=== PATIENT | male | born 1980 | race Caucasian/White ===

== ENCOUNTER 2020-03-22 20:55 | Emergency (ER) | payer BC, SELFPAY ==
[2020-03-22 21:13] VITALS: BP 148/98; PULSE 86; RESP 18; TEMP 36.6; O2SAT 95
[2020-03-22 21:30] VITALS: BP 138/88; PULSE 81
--- NOTE | 2020-03-22 21:44 | ECG_ITS ---
Measurements Intervals [place] Rate: 73 P: 6 MO: 149 QRS: -2 QRSD: 111 T: 15 QT: 378 QTc: 418 Interpretive Statements SINUS RHYTHM BORDERLINE T WAVE ABNORMALITY- ANT/INF LEADS BASELINE WANDER- II, III BORDERLINE ECG Electronically Signed On 03-24-2020 7:12:50 CDT by Jason Barreto D.O.
--- NOTE | 2020-03-22 21:44 | ED.GENADULT ---
HPI - General Adult General Chief complaint: Unspecified Stated complaint: hihg blood pressure Source: patient Mode of arrival: ambulatory Limitations: clinical condition History of Present Illness HPI narrative: C/o pounding in his chest, onset 90 minutes ago while resting comfortably in the supine position. He measured his blood pressure at 145/86. Seen in E.D. with concerns this could be caused by something serious. About 30 minutes prior to being seen, while driving to [place] he noticed a faint pulling discomfort, 2/10, just below the left nipple. It is non-radiating. He denies nausea, vomiting, sweating, shortness of breath. He has had hand tremors since onset. He has no hx of heart disease. It is not changed with arm movement, does get a little worse with deep inspiration. His pounding persists in the E.D. Nothing makes it better or worse. He has a hx of anxiety. Hx of anxiety. Moved from [place] several weeks ago; feels less anxious. 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 Hx of seizure assoc. with hypertension in the past. Earlier today he had an intense frontal headache with associated nausea and photophobia treated with 4 Tylenol. It is markedly better now but not gone. He occasionally gets headaches, not as intense as the one he had today. Related Data Home Medications Medication Instructions Recorded Confirmed atenolol 50 mg PO DAILY 03/22/20 03/22/20 fluoxetine 20 mg PO DAILY 03/22/20 03/22/20 nortriptyline 25 mg PO HS 03/22/20 03/22/20 valsartan 160 mg PO DAILY 03/22/20 03/22/20 Allergies Allergy/AdvReac Type Severity Reaction Status Date / Time Contrast Media Allergy Unknown Itching Uncoded 05/17/19 18:50 Review of Systems Constitutional: Constitutional: Denies chills and Denies fever(s) Eyes: Eyes: Reports no additional eye complaints ENT: Denies nasal congestion and Denies sore throat Cardiovascular: Cardiovascular: Reports no additional cardiovascular complaints Respiratory: Respiratory: Denies cough Gastrointestinal: Gastrointestinal: Reports abdominal pain (chronic abdominal pain, no recent change, attributed to 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. ), Denies nausea and Denies vomiting Genitourinary: Genitourinary: Denies dysuria Musculoskeletal: Comments: chronic low back pain, no change recently. Neurologic: Denies focal weakness Comments: no focal numbness. Psychiatric: Psychiatric: Reports anxiety PMFSH Past Medical History Medical History (Updated 03/22/20 @ 22:33 by Duke Real MD) Diverticulitis GERD (gastroesophageal reflux disease) Hodgkin's lymphoma Hypertension Lumbar back pain Family History Family History (Updated 03/22/20 @ 22:33 by Duke Real MD) Father FH: CABG (coronary artery bypass surgery) Social History Social History (Updated 03/22/20 @ 22:34 by Duke Real MD) Years smoked: 20 Smoking status: Current every day smoker Alcohol intake: former Exam Const: General: no acute distress Orientation/consciousness: patient oriented x3 HENMT: Mouth: Yes moist mucous membranes Throat: posterior oropharynx normal Eyes: Pupils: Equal, round and reactive pupils present EOM: EOMs intact bilaterally Direct Ophthalmoscopy: No photophobia Neck: Neck: no lymphadenopathy Chest: Chest palpation & inspection: normal inspection of the chest and tenderness (3 cm area just below left nipple. ) Resp: Effort & Inspection: normal respiratory effort Auscultation: clear to auscultation bilaterally, no rales and no wheezes Cardio: Rate: regular rate Rhythm: regular rhythm Heart sounds: no murmurs GI: GI Palp: Yes Tenderness to palpation present (GI) (tenderness throughout entire abdomen. ) Back/Spine/Pelvis: Other: tender across lumbar region Neuro: General: patient oriented x3, moves all extremities, no meningeal signs, no focal motor deficits and CN's II-XI intact bilaterally Speech: normal speech Gait exam (Neuro): Normal gait present Other: finger-nose, heel-josef
[2020-03-22 22:17] VITALS: BP 138/96; PULSE 75; RESP 18; O2SAT 96
== END 2020-03-22 22:19 | disposition home or self-care (01) ==
PROVIDERS: Emergency Provider Family Medicine
DX: R07.89 Other chest pain (principal); R00.2 Palpitations; I10 Essential (primary) hypertension; K21.9 Gastro-esophageal reflux disease without esophagitis; F17.200 Nicotine dependence, unspecified, uncomplicated
CPT/HCPCS: 93005; 99283; 99284

== ENCOUNTER 2020-05-29 21:47 | Emergency (ER) | payer BC, SELFPAY ==
[2020-05-29 21:56] VITALS: BP 160/95; PULSE 99; RESP 17; TEMP 37; O2SAT 95
--- NOTE | 2020-05-29 22:11 | ED.EXTPRO ---
HPI - Extremity Problem General Chief complaint: Extremity Problem,Nontraumatic Stated complaint: 39YO male w/ pain in Left calf, tingling in foot for last 3-4 days. 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 Denies Trauma. Pain in calf started today Time Seen by Provider: 05/29/20 21:50 Source: patient, RN notes reviewed and old records reviewed Mode of arrival: ambulatory Limitations: no limitations Related Data Home Medications Medication Instructions Recorded Confirmed atenolol 50 mg PO DAILY 03/22/20 05/29/20 fluoxetine 20 mg PO DAILY 03/22/20 05/29/20 nortriptyline 25 mg PO HS 03/22/20 05/29/20 valsartan 160 mg PO DAILY 03/22/20 05/29/20 albuterol sulfate 1 - 2 puff INHALATION QID 05/29/20 05/29/20 tramadol 50 mg PO TID PRN 05/29/20 05/29/20 Allergies Allergy/AdvReac Type Severity Reaction Status Date / Time iohexol Allergy Itching Verified 05/29/20 22:09 [From contrast - CT, X-RAY] Review of Systems Review of Systems: All systems reviewed & are unremarkable except as noted in HPI and below Constitutional: Constitutional: Reports as per HPI Cardiovascular: Cardiovascular: Reports no additional cardiovascular complaints, Denies chest pain, Denies rapid heart rate, Denies radiating jaw, neck or arm pain and Denies slow heart rate Respiratory: Respiratory: Reports no additional respiratory complaints, Denies chest congestion, Denies cough, Denies dyspnea and Denies wheezing Gastrointestinal: Gastrointestinal: Reports no additional gastrointestinal complaints Musculoskeletal: Musculoskeletal: Reports as per HPI Neurologic: Reports system reviewed and no additional complaints, except as documented, Reports as per HPI and Reports tingling PMFSH Past Medical History Medical History Diverticulitis GERD (gastroesophageal reflux disease) Hodgkin's lymphoma Hypertension Lumbar back pain Family History Family History Father FH: CABG (coronary artery bypass surgery) Social History Social History Years smoked: 20 Smoking status: Current every day smoker Alcohol intake: former Exam Const: General: healthy appearing, no acute distress and alert Orientation/consciousness: patient oriented x3 HENMT: Head: normal to inspection Neck: Neck: normal visual inspection Chest: Chest palpation & inspection: normal inspection of the chest Resp: Effort & Inspection: normal respiratory effort Auscultation: clear to auscultation bilaterally Cardio: Rate: regular rate Rhythm: regular rhythm GI: GI Palp: Yes Soft to palpation, No Tenderness to palpation present (GI), No Guarding due to palpation present (GI) and No Rigid due to palpation Neuro: General: patient oriented x3, moves all extremities, no focal motor deficits and CN's II-XI intact bilaterally Speech: normal speech Extrem: General: normal to inspection Other: Positive Varus test, TTP over LCL, negative david's sign Psych: Mental Status: mental status grossly normal Affect: normal affect Attitude: cooperative Thought content: Yes Normal thought content present Course Vital Signs Vital signs: Vital Signs Temperature 98.6 F 05/29/20 21:56 Pulse Rate 99 05/29/20 21:56 Respiratory Rate 17 05/29/20 21:56 Blood Pressure 160/95 H 05/29/20 21:56 Pulse Oximetry 95 05/29/20 21:56 Temperature 98.6 F 05/29/20 21:56 Pulse Rate 99 05/29/20 21:56 Respiratory Rate 17 05/29/20 21:56 Blood Pressure 160/95 H 05/29/20 21:56 Pulse Oximetry 95 05/29/20 21:56 Critical Care Time Critical Care Time Critical Care Time: No Discharge Plan Discharge Clinical Impression: Sprain of lateral collateral ligament of left knee Qualifiers: Encounter type: initial encounter Qualified Code(s): S83.422A - Sprain
[2020-05-29 22:17] LABS: Basophils Absolute Auto 0.09 K/mm3 (0.00-0.10); Basophils Percent Auto 0.9 % (0.0-1.0); Eosinophils Absolute Auto 0.36 K/mm3 (0.02-0.50); Eosinophils Percent Auto 3.7 % (1.0-6.0); Hematocrit 46.9 % (40.0-54.0); Hemoglobin 15.9 g/dL (14.0-18.0); Immature Granulocyte Absolute 0.04 K/mm3 (0.00-0.00); Immature Granulocyte Percent A 0.4 % (0.0-0.0); Lymphocytes Absolute Auto 2.75 K/mm3 (1.10-4.50); Lymphocytes Percent Auto 28.2 % (18.0-42.0); Mean Corpuscular HGB Conc 33.9 g/dL (32.0-36.0); Mean Corpuscular Hemoglobin 28.7 pg (27.0-31.0); Mean Corpuscular Volume 84.7 fL (78.0-102.0); Monocytes Absolute Auto 0.95 K/mm3 (0.10-0.90); Monocytes Percent Auto 9.7 % (2.0-11.0); Neutrophils Absolute Auto 5.6 K/mm3 (1.7-7.2); Neutrophils Percent Auto 57.1 % (50.0-70.0); Platelet Count Result 298 K/mm3 (150-420); Red Blood Count 5.54 M/mm3 (4.70-6.10); Red Cell Distribution Width 12.2 % (11.6-14.4); White Blood Count 9.8 K/mm3 (4.8-10.8)
[2020-05-29] MEDS: cloNIDine HCL 0.1 MG TABLET PO (22:20)
[2020-05-29 22:34] LABS: D Dimer 0.19 mg/L (0.19-0.50); INR 0.9; Partial Thromboplastin Time 29.8 SEC (22.3-31.6); Prothrombin Time 9.6 Seconds (9.64-11.0)
[2020-05-29 22:54] VITALS: BP 141/87; PULSE 84; RESP 18; TEMP 37.1; O2SAT 97
[2020-05-29 22:59] LABS: Albumin Level 3.6 g/dL (3.4-5.0); Alkaline Phosphatase 110 U/L (46-116); Bilirubin,Total 0.2 mg/dL (0.00-1.00); Blood Urea Nitrogen 13 mg/dL (7-18); Calcium 8.6 mg/dL (8.5-10.1); Carbon Dioxide 25 mmol/L (21-32); Chloride 100 mmol/L (98-108); Estimated Glomerular Filt Rate > 60; Glucose 119 mg/dL (70-99); Osmolality Calculated 283 mOsm/kg (285-295); Sodium 136 mmol/L (136-145); Total Protein 7.4 g/dL (6.4-8.2)
[2020-05-29 23:07] LABS: Hemoglobin A1C 6.1 % (<5.7)
[2020-05-29 23:13] LABS: Ferritin 103 ng/mL (26-388); Folic Acid 11.4 ng/mL (8.6->20); Iron 24 ug/dL (65-175); Percent Iron Saturation 8 % (12-57); Vitamin B12 386 pg/mL (193-986)
[2020-05-29 23:14] LABS: Aspartate Amino Transferase 24 U/L (15-37)
[2020-05-29 23:15] LABS: Alanine Aminotransferase 18 U/L (16-63)
== END 2020-05-29 23:39 | disposition home or self-care (01) ==
PROVIDERS: Emergency Provider Family Medicine; PCP Physician Assistant
DX: S83.422A Sprain of lateral collateral ligament of left knee, initial encounter (principal)
CPT/HCPCS: 36415; 80053; 82607; 82728; 82746; 83036; 83540; 83550; 85025; 85380; 85610; 85730; 99283; A9270

== ENCOUNTER 2020-07-31 18:27 | Emergency (ER) | payer BC, SELFPAY ==
[2020-07-31 18:42] VITALS: BP 160/92; PULSE 83; RESP 18; TEMP 36.8; O2SAT 97
--- NOTE | 2020-07-31 18:56 | ED.BACK ---
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 Currently there are some irritation of the skin after has been using some Aspercreme Aspercreme pain patches. Currently there is no rash no redness or irritation upon visual inspection of his mid to lower back. There is no radiculopathy into his lower extremities. There is no fever chills no abdominal pain no shortness of breath. MD elicited complaint: back pain Pertinent past history: prior back pain Onset (ago): day(s) Timing: intermittent Severity: mild Quality: burning Location: lumbar spine Exacerbating factors: none Relieving factors: none Related Data Home Medications Medication Instructions Recorded Confirmed atenolol 50 mg PO DAILY 03/22/20 07/31/20 fluoxetine 20 mg PO DAILY 03/22/20 07/31/20 nortriptyline 25 mg PO HS 03/22/20 07/31/20 valsartan 160 mg PO DAILY 03/22/20 07/31/20 albuterol sulfate 1 - 2 puff INHALATION QID 05/29/20 07/31/20 tramadol 50 mg PO TID PRN 05/29/20 07/31/20 Allergies Allergy/AdvReac Type Severity Reaction Status Date / Time iohexol Allergy Itching Verified 05/29/20 22:09 [From contrast - CT, X-RAY] Review of Systems Review of Systems: All systems reviewed & are unremarkable except as noted in HPI and below PMFSH Past Medical History Medical History Diverticulitis GERD (gastroesophageal reflux disease) Hodgkin's lymphoma Hypertension Lumbar back pain Family History Family History Father FH: CABG (coronary artery bypass surgery) Social History Social History Years smoked: 20 Smoking status: Current every day smoker Alcohol intake: former Exam Const: General: no acute distress and alert Orientation/consciousness: patient oriented x3 HENMT: Head: normal to inspection Eyes: Conjunctivae: conjunctivae normal Pupils: Equal, round and reactive pupils present EOM: EOMs intact bilaterally Neck: Neck: normal visual inspection, no lymphadenopathy and no meningeal signs Chest: Chest palpation & inspection: normal inspection of the chest Resp: Effort & Inspection: normal respiratory effort Auscultation: clear to auscultation bilaterally Cardio: Rate: regular rate Rhythm: regular rhythm GI: Auscultation: normal bowel sounds Back/Spine/Pelvis: Back: no CVA tenderness Skin: General skin exam: normal color Rashes: no rashes Neuro: General: patient oriented x3 and moves all extremities Psych: Mental Status: mental status grossly normal Course Course Emergency Course: Patient evaluated there is no skin redness or rash with visualized, the patient declined injection of Toradol is currently on nortriptyline for nerve pain. Vital Signs Vital signs: Vital Signs Temperature 36.8 C 07/31/20 18:42 Pulse Rate 83 07/31/20 18:42 Respiratory Rate 18 07/31/20 18:42 Blood Pressure 160/92 H 07/31/20 18:42 Pulse Oximetry 97 07/31/20 18:42 Temperature 36.8 C 07/31/20 18:42 Pulse Rate 83 07/31/20 18:42 Respiratory Rate 18 07/31/20 18:42 Blood Pressure 160/92 H 07/31/20 18:42 Pulse Oximetry 97 07/31/20 18:42 Critical Care Time Critical Care Time Critical Care Time: No Discharge Plan Discharge Clinical Impression: Lumbar back pain Patient Disposition: Home, Self-Care Condition: Stable Instructions: Antibiotic Form, Back Pain (ED) Additional Instructions: Follow-up with primary care physician within 1 week for further evaluation and treatment. Prescriptions: New gabapentin 300 mg capsule
== END 2020-07-31 19:05 | disposition home or self-care (01) ==
PROVIDERS: Emergency Provider Emergency Medicine; PCP Physician Assistant
DX: M54.5 Low back pain (principal); K21.9 Gastro-esophageal reflux disease without esophagitis; I10 Essential (primary) hypertension; K57.90 Diverticulosis of intestine, part unspecified, without perforation or abscess without bleeding; Z85.71 Personal history of Hodgkin lymphoma; F17.200 Nicotine dependence, unspecified, uncomplicated
CPT/HCPCS: 99283

== ENCOUNTER 2020-10-14 14:43 | Outpatient (RCR) | payer BC, SELFPAY ==
--- NOTE | 2020-10-14 16:02 | PTOPEVAL ---
Thank you for referring Praveen Duong to [facility].? The patient is scheduled to be seen for therapy? ____x/week for ___ weeks. Please review, sign, date and return this plan of care BEENA. I agree with and certify that the following plan of care is medically necessary. Referring Physician Date Admitting Provider: Attending Provider: Bret Parrish, PA Referring Provider: *PT Outpatient Evaluation Start: 10/14/20 15:05 Freq: Status: Active Protocol: Document 10/14/20 15:05 [facility] (Rec: 10/14/20 16:00 [facility] [id number]) Therapy Assessment Status Assessment Status Assessment Status Evaluation Outpatient Past Medical History Neurological History Hx Seizures Yes Cardiovascular History Hx Hypertension Yes Musculoskeletal History Hx Back Pain Yes Other History Hx Cancer Yes: HODGKINS LYMPHOMA Evaluation Information Problem Diagnosis lumbar radiculopathy Onset 10/08/20 Additional Evaluation Detail oswestry = 56% Subjective Information patient reports he has had Query Text:As Reported By Patient/ back pain for years. he Family reports he has DDD. he reports he has tried therapy in the past but it did not work. he reports he is feeling a bit different now reporting feeling his L LE is longer than his R LE. he reports he is hoping to have an MRI of the back. he reports he is having pain down the L LE ( patient reports this is sciatic pain).he reports he has increased pain in general with sitting and standing both . he reports he has reduction of pain with laying on his back. he reports he does work at [employer]. 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 he reports his last bout of therapy was a few years ago. he reports he has not had a recent x-ray of the lumbar spine (last one was about 2 years ago). he reports he has not seen and life skills specialist or surgeon as of this date. Prior Level of Function Comments Additional Prior Level of Function patient reports he initially Comments
--- NOTE | 2020-10-16 15:52 | PCPTNOTE ---
patient called and cancelled appt today. BRANDEN
--- NOTE | 2020-12-25 16:10 | PCPTNOTE ---
12/25/20 - patient has not been to therapy in several weeks. patient has been called and reports that are not going to continue therapy at this time. as of this date, they will be dc'd from skilled PT services, and all progress towards goals will be taken from their most recent evaluation/note. TIMO
== END 2020-11-07 08:39 | disposition home or self-care (01) ==
LOC: CHSPT 14:43
PROVIDERS: PCP Physician Assistant; Visit Provider Physician Assistant
DX: M54.16 Radiculopathy, lumbar region (principal)
CPT/HCPCS: 97014; 97110; 97161; G0283

== ENCOUNTER 2021-08-05 12:35 | Emergency (ER) | payer BC, SELFPAY ==
[2021-08-05 13:57] VITALS: BP 121/97; PULSE 76; RESP 20; TEMP 36.5; O2SAT 95
--- NOTE | 2021-08-05 14:05 | ED.SKABFB ---
HPI - Skin/Abscess/Foreign Bdy General Chief complaint: Skin/Abscess/Foreign Body Stated complaint: Possible spider Bite Time Seen by Provider: 08/05/21 14:05 Source: patient Mode of arrival: ambulatory Limitations: no limitations History of Present Illness HPI narrative: 40-year-old man comes in today complaining of a painful lesion on his left buttock that he noticed 3 nights ago. He had been outdoors and is concerned that he has a spider bite. Overnight he noticed that there is a red streak emanating from the wound migrating toward his back (cephalad). He has had no fever, abdominal pain, vomiting and has had no prior skin infections. He has had a tetanus within the last 5 years. MD complaint: rash and insect bite/sting Onset (ago): day(s) (3) Tetanus up to date: yes Location: buttocks Severity: moderate Quality: burning Pain Consistency: constant Relieving factors: none Exacerbating factors: none Context: other (Outdoors) Associated symptoms: denies other symptoms Treatments prior to arrival: OTC topical medication (Antibiotic) Related Data Home Medications Medication Instructions Recorded Confirmed atenolol 100 mg PO DAILY 03/22/20 08/05/21 nortriptyline 25 mg PO HS 03/22/20 08/05/21 valsartan 160 mg PO DAILY 03/22/20 08/05/21 albuterol sulfate 1 - 2 puff INHALATION QID 05/29/20 08/05/21 tramadol 50 mg PO TID PRN 05/29/20 08/05/21 baclofen 10 mg PO TID 08/05/21 08/05/21 fenofibrate 160 mg PO DAILY 08/05/21 08/05/21 Allergies Allergy/AdvReac Type Severity Reaction Status Date / Time iohexol Allergy Itching Verified 08/05/21 14:04 [From contrast - CT, X-RAY] Review of Systems Review of Systems: All systems reviewed & are unremarkable except as noted in HPI and below Constitutional: Constitutional: Denies chills and Denies fever(s) ENT: Denies nasal congestion and Denies sore throat Cardiovascular: Cardiovascular: Denies chest pain Respiratory: Respiratory: Denies cough and Denies dyspnea Gastrointestinal: Gastrointestinal: Denies nausea and Denies vomiting Musculoskeletal: Musculoskeletal: Denies back pain, Denies arthralgias and Denies joint swelling Integumentary/Breasts: Skin/Breast: Denies pruritus, Denies erythema and Denies rash Neurologic: Denies vertigo, Denies dizziness and Denies syncope Hematologic/Lymphatic: Hematologic/Lymphatic: Denies easy bleeding and Denies easy bruising Allergic/Immunologic: Allergic/Immunologic: Denies lip swelling and Denies throat swelling [facility] Past Medical History Medical History (Updated 08/05/21 @ 14:16 by Duke Neff MD) Diverticulitis GERD (gastroesophageal reflux disease) Hodgkin's lymphoma Hypertension Lumbar back pain Family History Family History Father FH: CABG (coronary artery bypass surgery) Social History Social History Years smoked: 20 Smoking status: Current every day smoker Alcohol intake: former Exam Const: General: healthy appearing, no acute distress and alert Orientation/consciousness: patient oriented x3 Limitations: no limitations Eyes: Conjunctivae: conjunctivae normal Pupils: Equal, round and reactive pupils present EOM: EOMs intact bilaterally Resp: Effort & Inspection: normal respiratory effort and not labored Auscultation: clear to auscultation bilaterally, no rales, no rhonchi and no wheezes Cardio: Rate: regular rate Rhythm: regular rhythm Heart sounds: no murmurs Skin: General skin exam: normal color, no jaundice and no pallor Other: 4 mm puncture wound with a 4 x 5 cm area of erythema surrounding it without induration or tenderness. In addition there is a cm and a half wide streak of erythema that is migrating cephalad about 4 cm. There is also a 6 cm diameter area of erythema overlying the right lateral hip that is without tenderness, erythema, swelling. Neuro: General: pat
[2021-08-05 14:19] VITALS: BP 111/83; PULSE 81; RESP 20; TEMP 36.6; O2SAT 96
--- NOTE | 2021-08-05 14:29 | PC.NURSE ---
1420 SKIN MARKER USED TO DRAW BORDER AROUND RASH AND INSECT BITE WITH STREAK GOING UP ON LEFT BUTTOCK
== END 2021-08-05 14:32 | disposition home or self-care (01) ==
PROVIDERS: Emergency Provider Emergency Medicine; PCP Physician Assistant
DX: I89.1 Lymphangitis (principal); W57.XXXA Bitten or stung by nonvenomous insect and other nonvenomous arthropods, initial encounter
CPT/HCPCS: 99283

== ENCOUNTER 2022-05-30 17:50 | Emergency (ER) | payer SELFPAY ==
--- NOTE | ~2022-05-30 | XR_ITS ---
EXAM: XR foot LT min 3V DATE: 05/30/2022 18:19 HISTORY: MEDIAL SIDE KNOT ON FOOT FOR 2 WEEKS/NO INJURY . COMPARISON: None available. FINDINGS: Normal mineralization. No fracture or dislocation. Apparent anterior calcaneal process fra cture is likely due to slight obliquity of positioning and summation artifact. No lytic or blastic le maia. Joint spaces are maintained. No erosion or periosteal change. Medial soft tissue swelling. IMPRESSION: No acute osseous finding in the left foot. Reviewed, dictated and finalized at location K.
[2022-05-30 18:00] VITALS: BP 166/100; PULSE 93; RESP 18; TEMP 36.7; O2SAT 96
--- NOTE | 2022-05-30 18:29 | ED.GENADULT ---
HPI - General Adult General Chief complaint: Extremity Injury, Lower Stated complaint: left foot/toe pain History of Present Illness HPI narrative: Praveen presented to the ED with left foot pain. It started insidiously about a week ago. it is an ache and a bump on the distal medial side of the left foot. It hurts worse with extension of the 1st toe on the left but is better with rest. No injury, erythema or trauma. Related Data Home Medications Medication Instructions Recorded Confirmed atenolol 50 mg tablet 100 mg PO DAILY 03/22/20 08/05/21 valsartan 160 mg tablet 160 mg PO DAILY 03/22/20 08/05/21 tramadol 50 mg tablet 50 mg PO TID PRN Pain 05/29/20 08/05/21 fenofibrate 160 mg tablet 160 mg PO DAILY 08/05/21 08/05/21 Allergies Allergy/AdvReac Type Severity Reaction Status Date / Time iohexol Allergy Itching Verified 05/30/22 18:10 [From contrast - CT, X-RAY] Review of Systems Review of Systems: All systems reviewed & are unremarkable except as noted in HPI and below [facility] Past Medical History Medical History (Updated 05/30/22 @ 18:40 by Brad Curran DO) Diverticulitis GERD (gastroesophageal reflux disease) Hodgkin's lymphoma Hypertension Lumbar back pain Family History Family History Father FH: CABG (coronary artery bypass surgery) Social History Social History Years smoked: 20 Smoking status: Current every day smoker Alcohol intake: former Exam Const: General: healthy appearing and no acute distress Nutritional Appearance: well nourished Orientation/consciousness: patient oriented x3 HENMT: Head: normal to inspection Ears: external ears normal General nose exam: Normal external nose present Face and sinus: normal facial exam Eyes: Conjunctivae: conjunctivae normal Pupils: Equal, round and reactive pupils present Neck: Neck: normal visual inspection Resp: Effort & Inspection: normal respiratory effort and not labored Cardio: Rate: regular rate Skin: General skin exam: normal color Neuro: General: patient oriented x3 and moves all extremities Extrem: Other: Left foot: TTP over the distal medial side. No erythema or deformity. Pain with resisted extension of the 1st toe. Pes planus present Psych: Mental Status: mental status grossly normal Course Course Emergency Course: EXAM:? XR foot LT min 3V DATE: 05/30/2022 18:19 HISTORY: MEDIAL SIDE KNOT ON FOOT FOR 2 WEEKS/NO INJURY . COMPARISON:? None available. FINDINGS:? Normal mineralization. No fracture or dislocation. Apparent anterior calcaneal process fracture is likely due to slight obliquity of positioning and summation artifact. No lytic or blastic lesion. Joint spaces are maintained. No erosion or periosteal change. Medial soft tissue swelling. IMPRESSION: No acute osseous finding in the left foot. Vital Signs Vital signs: Vital Signs Temperature 98.1 F 05/30/22 18:00 Pulse Rate 93 05/30/22 18:00 Respiratory Rate 18 05/30/22 18:00 Blood Pressure 166/100 H 05/30/22 18:00 Pulse Oximetry 96 05/30/22 18:00 Oxygen Delivery Room Air 05/30/22 18:00 Temperature 98.1 F 05/30/22 18:00 Pulse Rate 93 05/30/22 18:00 Respiratory Rate 18 05/30/22 18:00 Blood Pressure 166/100 H 05/30/22 18:00 Pulse Oximetry 96 05/30/22 18:00 Oxygen Delivery Room Air 05/30/22 18:00 Medical Decision Making Vital Signs Vital Signs: Vital Signs Temperature 98.1 F 05/30/22 18:00 Pulse Rate 93 05/30/22 18:00 Respiratory Rate 18 05/30/22 18:00 Blood Pressure 166/100 H 05/30/22 18:00 Pulse Oximetry 96 05/30/22 18:00 Oxygen Delivery Room Air 05/30/22 18:00 Temperature 98.1 F 05/30/22 18:00 Pulse Rate 93 05/30/22 18:00 Respiratory Rate 18 05/30/22 18:00 Blood Pressure 166/100 H 05/30/22 18:00 Pulse Oximetry 96 05/30/22 18:00 Oxygen De
== END 2022-05-30 18:43 | disposition home or self-care (01) ==
PROVIDERS: Emergency Provider Family Medicine
DX: M79.672 Pain in left foot (principal)
CPT/HCPCS: 73630; 99283

== ENCOUNTER 2022-07-18 15:01 | Emergency (ER) | payer BC, SELFPAY ==
[2022-07-18] VITALS (15 sets, daily range): BP systolic 135–161; BP diastolic 96–122; PULSE 82–89; RESP 18; TEMP 36.2–36.5; O2SAT 94–97
--- NOTE | 2022-07-18 16:11 | ED.EAR ---
HPI - Ear Problem General Chief complaint: Ear Stated complaint: L ear pressure Time Seen by Provider: 07/18/22 15:04 Source: patient and RN notes reviewed Mode of arrival: ambulatory Limitations: no limitations History of Present Illness HPI Narrative: left ear pressure MD Complaint: ear pain Location: left ear Duration: constant Severity: moderate Relieving factors: nothing Exacerbating factors: position of head Discharge from ear: Reports no Associated symptoms ear: tinnitus Treatment prior to arrival: attempt at ear wax removal Related Data Home Medications Medication Instructions Recorded Confirmed atenolol 50 mg tablet 100 mg PO DAILY 03/22/20 05/30/22 valsartan 160 mg tablet 160 mg PO DAILY 03/22/20 05/30/22 tramadol 50 mg tablet 50 mg PO TID PRN Pain 05/29/20 05/30/22 fenofibrate 160 mg tablet 160 mg PO DAILY 08/05/21 05/30/22 Allergies Allergy/AdvReac Type Severity Reaction Status Date / Time iohexol Allergy Itching Verified 07/18/22 15:15 [From contrast - CT, X-RAY] Review of Systems Review of Systems: All systems reviewed & are unremarkable except as noted in HPI and below Constitutional: Constitutional: Reports no additional constitutional complaints Eyes: Eyes: Reports no additional eye complaints ENT: Reports system reviewed and no additional complaints, except as documented Comments: left ear pressure Cardiovascular: Cardiovascular: Reports no additional cardiovascular complaints Respiratory: Respiratory: Reports no additional respiratory complaints Gastrointestinal: Gastrointestinal: Reports no additional gastrointestinal complaints Musculoskeletal: Musculoskeletal: Reports no additional musculoskeletal complaints Integumentary/Breasts: Skin/Breast: Reports system reviewed and no additional complaints, except as docu Neurologic: Reports system reviewed and no additional complaints, except as documented Psychiatric: Psychiatric: Reports no additional psychiatric complaints Endocrine: Endocrine: Reports no additional endocrine complaints Hematologic/Lymphatic: Hematologic/Lymphatic: Reports no additional hematologic/lymphatic complaints Allergic/Immunologic: Allergic/Immunologic: Reports no additional allergic/immunologic complaints [facility] Past Medical History Medical History Diverticulitis Eustachian tube dysfunction GERD (gastroesophageal reflux disease) Hodgkin's lymphoma Hypertension Lumbar back pain Family History Family History Father FH: CABG (coronary artery bypass surgery) Social History Social History Years smoked: 20 Smoking status: Current every day smoker Alcohol intake: former Exam Const: General: healthy appearing and no acute distress Nutritional Appearance: well nourished Orientation/consciousness: patient oriented x3 Limitations: no limitations HENMT: Head: normal to inspection Ears: external ears normal, TM's normal bilaterally and EAC's normal General nose exam: Normal external nose present and Normal nares present Face and sinus: normal facial exam and sinuses nontender Mouth: Yes Normal oral and palatal mucosa present and Yes moist mucous membranes Teeth and gingiva: dentition normal Throat: posterior oropharynx normal Eyes: Conjunctivae: conjunctivae normal Pupils: Equal, round and reactive pupils present EOM: EOMs intact bilaterally Neck: Neck: normal visual inspection, no lymphadenopathy and no meningeal signs Chest: Chest palpation & inspection: normal inspection of the chest Resp: Effort & Inspection: normal respiratory effort Auscultation: clear to auscultation bilaterally Cardio: Rate: regular rate Rhythm: regular rhythm GI: GI Palp: Yes Soft to palpation and No Tenderness to palpation present (GI) Auscultation: normal bowel sounds : General:
[2022-07-18] MEDS: guaiFENesin 12 HR 600 MG TABCR PO (16:14)
[2022-07-18] MEDS: IBUPROFEN 400 MG TABLET 800 MG PO (16:14)
[2022-07-18] MEDS: cloNIDine HCL 0.2 MG TABLET PO (16:15)
== END 2022-07-18 16:33 | disposition home or self-care (01) ==
PROVIDERS: Emergency Provider Emergency Medicine; PCP Physician Assistant
DX: H69.92 Unspecified Eustachian tube disorder, left ear (principal)
CPT/HCPCS: 99283; A9270

== ENCOUNTER 2022-08-09 14:59 | Outpatient (CLI) | payer BC, SELFPAY ==
--- NOTE | ~2022-08-09 | XR_ITS ---
EXAMINATION: XR chest 2V DATE: 08/09/2022 15:31 INDICATION: Cough and shortness of breath TECHNIQUE: PA and lateral views of the chest are obtained. COMPARISON: 07/24/2019 FINDINGS: The lungs are free of acute opacities. There is chronic mild atelectasis. No pleural effusi on or pneumothorax. The cardiomediastinal silhouette is normal. There is mild thoracic spondylosis. IMPRESSION: 1. No acute cardiopulmonary abnormality. Reviewed, dictated and finalized at location D.
== END 2022-08-09 15:00 | disposition home or self-care (01) ==
LOC: CHSIMG 15:13
PROVIDERS: PCP Physician Assistant; Visit Provider Physician Assistant
DX: Z20.822 Contact with and (suspected) exposure to COVID-19 (principal)
CPT/HCPCS: 71046

== ENCOUNTER 2022-11-08 16:23 | Observation (INO) | payer BC, SELFPAY ==
[2022-11-08] VITALS (14 sets, daily range): BP systolic 124–164; BP diastolic 89–118; PULSE 77–97; RESP 16–18; TEMP 36.4–37.4; O2SAT 92–98; BMI 38.6
--- NOTE | ~2022-11-08 | CT_ITS ---
EXAMINATION: CT abdomen pelvis wo con DATE: 11/08/2022 17:50 INDICATION: Diverticulosis TECHNIQUE: Computed tomography (CT) of the abdomen and pelvis was performed without intravenous contr ast. Automated exposure control and iterative reconstruction technique were employed. The dose-length product was 1390.66 mGy-cm. COMPARISON: 04/19/2017. FINDINGS: Lower thorax: Unremarkable Liver: Normal. Biliary/Gallbladder: Cholelithiasis. No bile duct dilation. Pancreas: No mass or duct dilation. Spleen: Normal. Adrenals:No mass. Kidneys: Punctate right midpole calcification. No mass, obstructing stone, or hydronephrosis. GI tract: No small or large bowel dilation. Short segment wall thickening and pericolonic inflammator y change in the distal sigmoid adjacent to an inflamed diverticulum in the right lower quadrant. Norm al appendix. Diverticulosis Mesentery/Peritoneum: No ascites, mass, or free air. Retroperitoneum: No mass. Mild atherosclerotic abdominal aortic and/or arterial calcifications. Pelvis: Pelvic organs are within normal limits. Soft Tissues: Small bilateral fat-containing uncomplicated inguinal hernias. Bones: No acute osseous finding. IMPRESSION: Acute uncomplicated sigmoid 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. Reviewed, dictated and finalized at location K. [employer]
--- NOTE | 2022-11-08 16:41 | ED.ABDPAIN ---
HPI - Abdominal Pain General Chief Complaint: Abdominal Pain Stated Complaint: abdominal pain Time Seen by Provider: 11/08/22 16:41 Source: patient Mode of arrival: ambulatory Limitations: no limitations History of Present Illness HPI narrative: 31-year-old male with a history of Hodgkin'slymphoma, diverticulosis presents to the ER with a 2 day history of -- chills without any fever -- diffuse abdominal pain -- nausea without any vomiting. -- Loose bowel movements he had a flare up of his diverticulosis early this year. MD elicited complaint: abdominal pain Pertinent past history: 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 Onset (ago): day(s) ( Started 2 days ago) Pain Consistency: constant Location: diffuse Severity: severe Quality: aching Radiation: none Migration to: no migration Exacerbating factors: nothing Relieving factors: nothing Associated symptoms: chills Related Data Home Medications Medication Instructions Recorded Confirmed atenolol 50 mg tablet 100 mg PO DAILY 03/22/20 11/08/22 valsartan 160 mg tablet 160 mg PO DAILY 03/22/20 11/08/22 tramadol 50 mg tablet 50 mg PO TID PRN Pain 05/29/20 11/08/22 fenofibrate 160 mg tablet 160 mg PO DAILY 08/05/21 11/08/22 baclofen 10 mg tablet 10 mg PO TID 11/08/22 11/08/22 fluticasone propionate 50 2 spray intranasal DAILY 11/08/22 11/08/22 mcg/actuation nasal spray,suspension Allergies Allergy/AdvReac Type Severity Reaction Status Date / Time iohexol Allergy Itching Verified 07/18/22 15:15 [From contrast - CT, X-RAY] Review of Systems Review of Systems: All systems reviewed & are unremarkable except as noted in HPI and below Constitutional: Constitutional: Reports as per HPI, Reports no additional constitutional complaints and Reports chills Eyes: Eyes: Reports as per HPI and Reports no additional eye complaints ENT: Reports system reviewed and no additional complaints, except as documented and Reports as per HPI Cardiovascular: Cardiovascular: Reports as per HPI and Reports no additional cardiovascular complaints Respiratory: Respiratory: Reports as per HPI and Reports no additional respiratory complaints Gastrointestinal: Gastrointestinal: Reports as per HPI, Reports diarrhea ( loose stools) and Reports nausea Genitourinary: Genitourinary: Reports no additional male genitourinary complaints and Reports as per HPI Musculoskeletal: Musculoskeletal: Reports no additional musculoskeletal complaints and Reports as per HPI Integumentary/Breasts: Skin/Breast: Reports system reviewed and no additional complaints, except as docu and Reports as per HPI Neurologic: Reports system reviewed and no additional complaints, except as documented and Reports as per HPI Psychiatric: Psychiatric: Reports no additional psychiatric complaints and Reports as per HPI Endocrine: Endocrine: Reports no additional endocrine complaints and Reports as per HPI Hematologic/Lymphatic: Hematologic/Lymphatic: Reports no additional hematologic/lymphatic complaints and Reports as per HPI Allergic/Immunologic: Allergic/Immunologic: Reports no additional allergic/immunologic complaints and Reports as per HPI PMFSH Past Medical History Medical History Diverticulitis Eustachian tube dysfunction GERD (gastroesophageal reflux disease) Hodgkin's lymphoma Hypertension Lumbar back pain Family History Family History Father FH: CABG (coronary artery bypass surgery) Social History Social History Years smoked: 20 Smoking status: Current every day smoker Alcohol intake: former Exam Const: General: healthy appearing and no acute distress Nutritional Appearance: well nourished Orientation/consciousness: patient oriented x3 Limitations: no limitations HENMT: Head: normal to inspection Ears: external ears normal Face/Nose/Sin
[2022-11-08 17:07] LABS: Basophils Absolute Auto 0.04 K/mm3 (0.00-0.10); Basophils Percent Auto 0.3 % (0.0-1.0); Eosinophils Absolute Auto 0.17 K/mm3 (0.02-0.50); Eosinophils Percent Auto 1.4 % (1.0-6.0); Hematocrit 44.5 % (40.0-54.0); Hemoglobin 14.7 g/dL (14.0-18.0); Immature Granulocyte Absolute 0.05 K/mm3 (0.00-0.00); Immature Granulocyte Percent A 0.4 % (0.0-0.0); Lymphocytes Absolute Auto 1.89 K/mm3 (1.10-4.50); Lymphocytes Percent Auto 15.8 % (18.0-42.0); Mean Corpuscular Volume 84.8 fL (78.0-102.0); Mean Platelet Volume 10.2 fl (8.7-11.0); Monocytes Absolute Auto 0.88 K/mm3 (0.10-0.90); Monocytes Percent Auto 7.3 % (2.0-11.0); Neutrophils Percent Auto 74.8 % (50.0-70.0); Platelet Count Result 303 K/mm3 (150-420); Red Blood Count 5.25 M/mm3 (4.70-6.10); Red Cell Distribution Width 12.8 % (11.6-14.4)
[2022-11-08 17:15] LABS: Add Urine Microscopic? NO; Appearance Urine Clear (Clear); Bilirubin Urine Negative (Negative); Blood Urine Negative (Negative); Color Urine Yellow (Yellow); Glucose Urine UA Negative (Negative); Ketones Urine Negative (Negative); Leukocyte Esterase Ur Negative LEU/UL (Negative); Nitrate Urine Negative (Negative); Protein Urine Negative (Negative); Urobilinogen Urine 0.2 mg/dL (0.2-1.0); pH Urine 6.5 (5.0-8.0)
[2022-11-08] MEDS: HYDROmorphone HCL INJ (*CRX) 2 MG/ML VIAL 0.5 MG IV PUSH (17:19)
[2022-11-08] MEDS: ONDANSETRON INJ 4 MG/2 ML VIAL IV PUSH (17:19)
[2022-11-08 17:22] LABS: Alanine Aminotransferase 14 U/L (16-63); Albumin Level 3.7 g/dL (3.4-5.0); Alkaline Phosphatase 69 U/L (46-116); Anion Gap 7 mmol/L (8-16); Aspartate Amino Transferase < 10 U/L (15-37); Bilirubin,Total 0.4 mg/dL (0.00-1.00); Blood Urea Nitrogen 17 mg/dL (7-18); Calcium 8.9 mg/dL (8.5-10.1); Carbon Dioxide 28 mmol/L (21-32); Chloride 98 mmol/L (98-108); Estimated CRCL calculation 100 ml/min; Estimated Glomerular Filt Rate > 60; Glucose 100 mg/dL (70-99); Lipase 67 U/L (73-393); Osmolality Calculated 277 mOsm/kg (285-295); Potassium 4.1 mmol/L (3.5-5.1); Sodium 133 mmol/L (136-145); Total Protein 7.5 g/dL (6.4-8.2)
[2022-11-08 17:27] LABS: Lactic Acid Reflex 0.6 mmol/L (0.4-2.0)
[2022-11-08] MEDS: LACTATED RINGERS 1,000 ML 999 ML IV CONT ×2 (17:30→18:51)
[2022-11-08] MEDS: levoFLOXacin 500 MG/D5W 100 ML 500 MG/100 ML BAG 100 MG IVPB (18:54)
[2022-11-08] MEDS: metroNIDAZOLE 500 MG/ISO 100ML 500 MG/100 ML BAG 100 MG IVPB (20:45)
[2022-11-08] MEDS: MORPHINE SULFATE (*CRX) 2 MG/ML INJ IV PUSH (20:51)
[2022-11-08] MEDS: LACTATED RINGERS 1,000 ML 100 ML IV CONT (21:55)
--- NOTE | 2022-11-08 22:50 | ADMGEN ---
This patient, Praveen Duong, was admitted to 2nd Floor Room 202-1. Patient/family oriented to hospital policies and general routines including ID bracelet, bed and alarms, pain management, procedures, bathroom and other care routines, personal items, smoking policy, room service/diet, and visiting hours. Information on how to activate the Rapid Response Team has been discussed. Patient/Family are encouraged to report perceived risks to care and to ask questions if they do not understand what they are told or what they should do.
[2022-11-09] VITALS: BP 140/90; PULSE 78; RESP 16; TEMP 36.4; O2SAT 94
[2022-11-09] MEDS: MORPHINE SULFATE (*CRX) 2 MG/ML INJ IV PUSH ×2 (00:53→06:01)
[2022-11-09] MEDS: metroNIDAZOLE 500 MG/ISO 100ML 500 MG/100 ML BAG 100 MG IVPB ×3 (04:33→19:30)
[2022-11-09 05:13] LABS: Basophils Absolute Auto 0.04 K/mm3 (0.00-0.10); Basophils Percent Auto 0.5 % (0.0-1.0); Eosinophils Absolute Auto 0.21 K/mm3 (0.02-0.50); Eosinophils Percent Auto 2.5 % (1.0-6.0); Hematocrit 42.7 % (40.0-54.0); Hemoglobin 13.8 g/dL (14.0-18.0); Immature Granulocyte Absolute 0.04 K/mm3 (0.00-0.00); Immature Granulocyte Percent A 0.5 % (0.0-0.0); Lymphocytes Absolute Auto 1.77 K/mm3 (1.10-4.50); Lymphocytes Percent Auto 20.7 % (18.0-42.0); Mean Corpuscular HGB Conc 32.3 g/dL (32.0-36.0); Mean Corpuscular Hemoglobin 27.3 pg (27.0-31.0); Mean Corpuscular Volume 84.4 fL (78.0-102.0); Mean Platelet Volume 10.4 fl (8.7-11.0); Monocytes Absolute Auto 0.85 K/mm3 (0.10-0.90); Monocytes Percent Auto 9.9 % (2.0-11.0); Neutrophils Absolute Auto 5.7 K/mm3 (1.7-7.2); Neutrophils Percent Auto 65.9 % (50.0-70.0); Platelet Count Result 262 K/mm3 (150-420); Red Blood Count 5.06 M/mm3 (4.70-6.10); Red Cell Distribution Width 12.9 % (11.6-14.4); White Blood Count 8.6 K/mm3 (4.8-10.8)
[2022-11-09 05:24] LABS: Anion Gap 7 mmol/L (8-16); Blood Urea Nitrogen 14 mg/dL (7-18); Calcium 8.5 mg/dL (8.5-10.1); Carbon Dioxide 28 mmol/L (21-32); Chloride 103 mmol/L (98-108); Estimated CRCL calculation 114 ml/min; Estimated Glomerular Filt Rate > 60; Glucose 100 mg/dL (70-99); Osmolality Calculated 286 mOsm/kg (285-295); Potassium 3.7 mmol/L (3.5-5.1); Sodium 138 mmol/L (136-145)
[2022-11-09 07:35] VITALS: BP 119/87; PULSE 63; RESP 18; TEMP 36.2; O2SAT 97
[2022-11-09 09:35] VITALS: PULSE 63
[2022-11-09] MEDS: FENOFIBRATE NANOCRYSTALLIZED 145 MG TABLET PO (09:35)
[2022-11-09] MEDS: atenoloL 50 MG TABLET 100 MG PO (09:35)
[2022-11-09] MEDS: BACLOFEN 10 MG TABLET PO ×3 (09:35→18:04)
[2022-11-09] MEDS: VALSARTAN 80 MG TABLET 160 MG PO (09:36)
[2022-11-09] MEDS: KETOROLAC 15 MG/ML VIAL (*BKC) IV PUSH ×2 (10:43→18:21)
--- NOTE | 2022-11-09 12:00 | PC.NURSE ---
CLAYTON Callahan decided to keep LR running on patient. Please disregard Discontinued charting on reasons for not giving LR at 0939 today.
--- NOTE | 2022-11-09 13:26 | PM.IMHP ---
H&P: HPI History of Present Illness Date/Time: 11/09/22 13:26 Chief Complaint: abdominal pain Narrative: This is a 41 year old male that presented to the emergency room with abdominal pain that had been going on for the past 24 hours prior . Patient has a past medical history of Diverticulitis, hypertension , Hydgkins lymphoma and diverticulosis. Patient states his symptoms started 2 days prior and he has had a flare up previously this year. Mr. Duong does not have a GI specialist and has no followed up due to insurance. Mr Diallo CT scan shows uncomplicated Diverticulitis he has not had any bloody stool and pain is in his lower Quad. Pt pain is not at this time brought on by eating when I awaken him he states it is there. Patient has not complained of any nausea and or vomiting for me and he denies any bowel movements today. We will administer IV fluids, IV antibiotic and pain medication. Patient will remain NPO until pain resolve where we will reintroduce food for patient. Patient has no elevated liver enzymes and is resting well at this time. Review of Systems Review of Systems: CONSTITUTIONAL: Denies fever, chills, or sweats. EYES: Denies visual changes, redness, or discharge. ENT: Denies rhinorrhea, congestion, sore throat, or otalgia. CARDIOVASCULAR:Denies chest pain, palpitations, or edema. RESPIRATORY: Denies cough or dyspnea. GASTROINTESTINAL: complains of abdominal pain, nausea, vomiting, or diarrhea. GENITOURINARY: Denies dysuria or hematuria. SKIN:[Denies rash or itching. MUSCULOSKELETAL:Denies back pain, joint pain, or myalgia. NEUROLOGIC: Denies headache, numbness, or weakness. PSYCHIATRIC:Denies anxiety or depression [facility] Past Medical History Medical History Diverticulitis Eustachian tube dysfunction GERD (gastroesophageal reflux disease) Hodgkin's lymphoma Hypertension Lumbar back pain Family History Family History Father FH: CABG (coronary artery bypass surgery) Social History Social History Smoking packs per day: 0.5 Smoking cigarettes per day: 10.0 Years smoked: 20 Smoking pack-years: 10.00 Smoking status: Current every day smoker Tobacco type: cigarettes Alcohol intake: never Substance use: never Lack of Transportation: No Lack of Food: Never True Current Housing: I Have Housing Concerned About Future Housing: No Difficulty Paying Gas/Electric Bills: No Difficulty Paying for Meds: No Currently Unemployed: No Education: Grade School Difficulty w/ Childcare or Family Care: No Spiritual care concerns: No Comments AT TIME SIGNATURE, I HAVE REVIEWED AND AGREE WITH NURSING PAST MEDICAL, SOCIAL, SURGICAL AND FAMILY HISTORY. PLEASE SEE NURSING CHART FOR FURTHER INFORMATION. THERE IS NO RELEVANT FAMILY HISTORY PERTINENT TO THE PRESENTING COMPLAINT. Meds Home Medications and Allergies Home Medications Medication Instructions Recorded Confirmed Type atenolol 50 mg tablet 100 mg PO DAILY 03/22/20 11/08/22 History valsartan 160 mg tablet 160 mg PO DAILY 03/22/20 11/08/22 History tramadol 50 mg tablet 50 mg PO TID PRN Pain 05/29/20 11/08/22 History fenofibrate 160 mg tablet 160 mg PO DAILY 08/05/21 11/08/22 History dextromethorphan-guaifenesin 30 1 tablet PO Q12H #20 tabs 07/18/22 11/08/22 Rx mg-600 mg tablet extended [id number] hr (Mucinex DM) baclofen 10 mg tablet 10 mg PO TID 11/08/22 11/08/22 History fluticasone propionate 50 2 spray intranasal DAILY 11/08/22 11/08/22 History mcg/actuation nasal spray,suspension hydrocodone 10 mg-acetaminophen 1 tablet PO Q6H PRN pain #10 tabs 11/10/22 Rx 325 mg tablet levofloxacin 500 mg tablet 500 mg PO DAILY 8 days #8 tabs 11/10/22 Rx metronidazole 500 mg tablet 500 mg PO Q8H 8 days #24 tabs 11/10/22 Rx ondansetron 4 mg disintegra
[2022-11-09] MEDS: LACTATED RINGERS 1,000 ML 100 ML IV CONT (14:39)
[2022-11-09 16:15] VITALS: BP 120/85; PULSE 70; RESP 18; TEMP 37.1; O2SAT 96
[2022-11-09] MEDS: levoFLOXacin 500 MG/D5W 100 ML 500 MG/100 ML BAG 100 MG IVPB (18:21)
[2022-11-09] MEDS: ONDANSETRON HCL ODT 4 MG TABLET PO (20:10)
[2022-11-09] MEDS: PANTOPRAZOLE SODIUM IV 40 MG VIAL IV PUSH (21:35)
--- NOTE | 2022-11-09 21:39 | PC.NURSE ---
Pt continues to complain of nausea. States protonix will probably help. Protonix given IV as ordered at this time.
--- NOTE | 2022-11-09 22:29 | PC.NURSE ---
Pt in bed playing on phone, states pain and nausea are better and he feels better.
[2022-11-09 23:47] VITALS: BP 133/83; PULSE 65; RESP 16; TEMP 36.2; O2SAT 96
[2022-11-10] MEDS: LACTATED RINGERS 1,000 ML 100 ML IV CONT (00:59)
[2022-11-10] MEDS: metroNIDAZOLE 500 MG/ISO 100ML 500 MG/100 ML BAG 100 MG IVPB (03:44)
--- NOTE | 2022-11-10 03:58 | PC.NURSE ---
flagyl infusing, sleeping, no distress
--- NOTE | 2022-11-10 04:59 | PM.DS ---
DS: Admitting Diagnosis Discharge Date 11/10/2022 Admitting Diagnosis Diverticulitis DS: Discharge Diagnosis Discharge Diagnosis (1) Diverticulitis of sigmoid colon: Code(s): K57.32 - Diverticulitis of large intestine without perforation or abscess without bleeding Status: Acute Assessment and Plan: resolved patient able to tolerate meals denies any abdominal pain Imaging indicate acute uncomplicated sigmoid 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 patient received Levaquin, Flagyl, Zofran, pantoprazole during this admission he will discharge with the same medications (2) Abdominal pain: Code(s): R10.9 - Unspecified abdominal pain Status: Acute Assessment and Plan: secondary to 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 resolved patient able to tolerate meals Imaging indicate acute uncomplicated sigmoid 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 patient received Levaquin, Flagyl, Zofran, pantoprazole during this admission (3) GERD (gastroesophageal reflux disease): Code(s): K21.9 - Gastro-esophageal reflux disease without esophagitis Status: Acute Assessment and Plan: continue pantoprazole (4) Lumbar back pain: Code(s): M54.5 - Low back pain Status: Acute Assessment and Plan: continue at-home medication (5) Hypertension: Code(s): I10 - Essential (primary) hypertension Status: Acute Assessment and Plan: continue home medication follow-up primary care physician (6) Diverticulitis: Code(s): K57.92 - Diverticulitis of intestine, part unspecified, without perforation or abscess without bleeding Status: Acute DS: Summary Hospital Course Reason for hospitalization: This is a ? 41? year old male that presented to the emergency room with abdominal pain that had been going on for the past 24 hours prior . Patient has a past medical history of? Diverticulitis, hypertension , Hydgkins lymphoma and diverticulosis. Patient states his symptoms started 2 days prior and he has had a flare up previously this year. Mr. Duong does not have a GI specialist and has no followed up due to insurance. Mr Diallo CT scan shows uncomplicated Diverticulitis he has not had any bloody stool and pain is in his lower Quad.? patient abdominal pain has resolved he is able to tolerate his meals and and is asking for a regular diet. Patient agrees that he is ready for discharge he will discharge home with Levaquin, Flagyl x8 days Zofran, pantoprazole and pain medication. The patient denies SOB, CP, palpitation, extremity numbness, lightheadedness, dizziness, constipation, diarrhea, chills, or fever. Discharge instructions reviewed with patient, as well as provided in writing per nursing staff. The instructions also include specific and strict return/GO TO THE ER as well as f/u information. All questions have been answered, and the patient and/or family deny any further questions with discharge and discharge plan. Hospital Course: abdominal pain Time Spent with Patient Time attestation: Total time spent providing and/or coordinating discharge services: Exam Const: Other: GENERAL:WELL-APPEARING, WELL-NOURISHED, AND IN NO ACUTE DISTRESS. HEAD:NORMOCEPHALIC, ATRAUMATIC. EYES: PERRLA AND EOMI. ENT: NARES CLEAR, NO RHINORRHEA OR EPISTAXIS. MUCOUS MEMBRANES MOIST. NECK: SUPPLE. CHEST: CLEAR TO AUSCULTATION. NO RESPIRATORY DISTRESS. HEART: REGULAR RATE AND RHYTHM. NO MURMUR HEARD. NORMAL PERIPHERAL PULSES. ABDOMEN: SOFT, NONTENDER, NONDISTENDED, NORMAL ACTIVE BOWEL SOUNDS. EXTREMITIES: NORMAL RANGE OF MOTION. NO EDEMA. SKIN: WARM, DRY, NO RASH. NEURO: NO FOCAL DEFICITS. ALERT AND ORIENTED X3. DS: Data Data Completed and Pending Labs on day of discharge: Labs from last 24 hours 11/09/22 11/09/22 04:48 04:48 WBC 8.6 RBC 5.06 Hgb 13.8 L Hct 42.7 MCV 84.4 MCH 27.3 MCHC 32.3 RDW 12.9 Plt Count 262 MPV 10.4 Immature Gran % (Auto) 0.5 H Neut % (Auto) 65.9 Lymph % (
[2022-11-10 05:16] LABS: Hemoglobin 13.8 g/dL (14.0-18.0); Mean Corpuscular HGB Conc 32.1 g/dL (32.0-36.0); Mean Corpuscular Hemoglobin 27.1 pg (27.0-31.0); Mean Corpuscular Volume 84.3 fL (78.0-102.0); Mean Platelet Volume 10.3 fl (8.7-11.0); Platelet Count Result 277 K/mm3 (150-420); Red Cell Distribution Width 12.3 % (11.6-14.4); White Blood Count 8.1 K/mm3 (4.8-10.8)
[2022-11-10 05:44] LABS: Alanine Aminotransferase 12 U/L (16-63); Albumin Level 3.1 g/dL (3.4-5.0); Alkaline Phosphatase 56 U/L (46-116); Anion Gap 7 mmol/L (8-16); Aspartate Amino Transferase < 10 U/L (15-37); Bilirubin,Total 0.3 mg/dL (0.00-1.00); Blood Urea Nitrogen 15 mg/dL (7-18); Calcium 8.8 mg/dL (8.5-10.1); Carbon Dioxide 27 mmol/L (21-32); Chloride 105 mmol/L (98-108); Estimated CRCL calculation 96 ml/min; Estimated Glomerular Filt Rate > 60; Glucose 88 mg/dL (70-99); Magnesium 2.1 mg/dL (1.8-2.4); Osmolality Calculated 287 mOsm/kg (285-295); Potassium 4.1 mmol/L (3.5-5.1); Sodium 139 mmol/L (136-145); Total Protein 6.7 g/dL (6.4-8.2)
[2022-11-10 07:48] VITALS: BP 106/61; PULSE 70; RESP 18; TEMP 36.2; O2SAT 95
[2022-11-10] MEDS: FENOFIBRATE NANOCRYSTALLIZED 145 MG TABLET PO (08:31)
[2022-11-10] MEDS: atenoloL 50 MG TABLET 100 MG PO (08:31)
[2022-11-10] MEDS: VALSARTAN 80 MG TABLET 160 MG PO (08:32)
[2022-11-10] MEDS: BACLOFEN 10 MG TABLET PO (08:32)
--- NOTE | 2022-11-10 09:30 | PC.NURSE ---
Discharge to home ambulatory with staff to significant other, a/ox4 agreeable with discharge plan, no question voiced upon review of medications for home use, all personal items returned to patient
--- NOTE | 2022-11-11 11:18 | PC.NURSE ---
Pt states he received and understood his discharge instructions. Pt has no other comments.
== END 2022-11-10 09:30 | disposition home or self-care (01) ==
LOC: CHSED 18:35 → CHS2ND 18:57
PROVIDERS: Nurse Practitioner; Nurse Practitioner Family; Admitting Provider Internal Medicine; Emergency Provider Internal Medicine Critical Care Medicine; PCP Physician Assistant; Visit Provider Internal Medicine
DX: K57.92 Diverticulitis of intestine, part unspecified, without perforation or abscess without bleeding (principal); C81.90 Hodgkin lymphoma, unspecified, unspecified site; I10 Essential (primary) hypertension; K21.9 Gastro-esophageal reflux disease without esophagitis; M54.50 Low back pain, unspecified; F17.210 Nicotine dependence, cigarettes, uncomplicated
CPT/HCPCS: 36415; 74176; 80048; 80053; 81003; 83605; 83690; 83735; 85025; 85027; 85610; 96361; 96365; 96366; 96367; 96375; 96376; 99285; A9270; C9113; G0378; J1170; J1885; J1956; J2270; J2405; J7120

== ENCOUNTER 2023-03-09 10:43 | Emergency (ER) | payer BC, SELFPAY ==
--- NOTE | ~2023-03-09 | XR_ITS ---
XR hand RT min 3V 03/09/2023 11:32 INDICATION: Right second and third metacarpal pain. PROCEDURE: 3 views right hand COMPARISON: Right wrist series dated 02/25/2010. FINDINGS: Fracture, dislocation or subluxation is not identified. The soft tissues appear within norm al limits. No foreign bodies are identified. IMPRESSION: 1: NO ACUTE BONE OR JOINT ABNORMALITY IDENTIFIED. Reviewed, dictated and finalized at location B.
[2023-03-09 10:45] VITALS: TEMP 36.5
[2023-03-09 10:47] VITALS: BP 132/86; PULSE 75; RESP 18; TEMP 36.5; O2SAT 95
[2023-03-09 10:57] VITALS: BP 132/86; PULSE 75; RESP 18; TEMP 36.5; O2SAT 95
--- NOTE | 2023-03-09 11:22 | ED.GENADULT ---
HPI - General Adult General Chief complaint: Extremity Injury, Upper Stated complaint: right hand injury Time Seen by Provider: 03/09/23 11:15 History of Present Illness HPI narrative: the patient is a 42-year-old male with history of hypertension, GERD, Hodgkin's lymphoma, and low back pain. He takes tramadol nightly for pain. 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 After a delivery with his forklift last night, he was pacing the forklift on the fat pad whereby he noticed pain in his right hand, at the 2nd and 3rd metacarpal bones, with shooting pains down the index and long fingers of his right hand. There is associated mild swelling to that area. No direct trauma or injuries that he can recall. No prior similar history. No complaints elsewhere. He did take his tramadol last night but has not taken any other pain medications. He presents for further evaluation. He is right handed. Related Data Home Medications Medication Instructions Recorded Confirmed atenolol 50 mg tablet 100 mg PO DAILY 03/22/20 03/09/23 valsartan 160 mg tablet 160 mg PO DAILY 03/22/20 03/09/23 tramadol 50 mg tablet 50 mg PO TID PRN Pain 05/29/20 03/09/23 fenofibrate 160 mg tablet 160 mg PO DAILY 08/05/21 03/09/23 baclofen 10 mg tablet 10 mg PO TID 11/08/22 03/09/23 fluticasone propionate 50 2 spray intranasal DAILY 11/08/22 03/09/23 mcg/actuation nasal spray,suspension Allergies Allergy/AdvReac Type Severity Reaction Status Date / Time iohexol Allergy Itching Verified 03/09/23 10:53 [From contrast - CT, X-RAY] Review of Systems Review of Systems: All systems reviewed & are unremarkable except as noted in HPI and below Constitutional: Constitutional: Reports as per HPI, Reports no additional constitutional complaints, Denies chills, Denies excessive sweating, Denies fatigue, Denies fever(s), Denies headache(s) and Denies weakness Eyes: Eyes: Reports as per HPI, Reports no additional eye complaints, Denies change in vision and Denies photophobia ENT: Reports system reviewed and no additional complaints, except as documented, Reports as per HPI, Denies dysphagia, Denies vertigo, Denies dizziness, Denies headache(s), Denies lip swelling, Denies nasal congestion, Denies sore throat, Denies throat swelling and Denies tongue swelling Cardiovascular: Cardiovascular: Reports as per HPI, Reports no additional cardiovascular complaints, Denies chest pain, Denies syncope, Denies rapid heart rate and Denies dyspnea Respiratory: Respiratory: Reports as per HPI, Reports no additional respiratory complaints, Denies chest congestion, Denies cough, Denies dyspnea and Denies wheezing Gastrointestinal: Gastrointestinal: Reports as per HPI, Reports no additional gastrointestinal complaints, Denies abdominal pain, Denies constipation, Denies dysphagia, Denies diarrhea, Denies nausea and Denies vomiting Genitourinary: Genitourinary: Reports as per HPI, Denies hematuria, Denies oliguria, Denies dysuria, Denies urinary frequency, Denies urinary incontinence and Denies urinary urgency Musculoskeletal: Musculoskeletal: Reports no additional musculoskeletal complaints, Denies back pain, Denies myalgias, Reports arthralgias (right 2nd 3rd digit metacarpals), Reports joint swelling (right 2nd 3rd digit metacarpals) and Denies numbness Integumentary/Breasts: Skin/Breast: Reports system reviewed and no additional complaints, except as docu, Denies pruritus, Denies erythema, Denies rash and Denies skin ulcer Neurologic: Reports system reviewed and no additional complaints, except as documented, Reports as per HPI, Denies confusion, Denies vertigo, Denies dizziness, Denies syncope, Denies headache(s), Denies focal weakness, Denies numbness and Denies weakness Psychiatric: Psychiatric: Reports as per HPI, Denies anxiety, Denies confusion, Denies depression, Denies homicidal ideation and Denies suicidal ideation Endocrine: Endocrine: Reports no additiona
[2023-03-09 12:15] VITALS: BP 130/78; PULSE 72; RESP 16; O2SAT 98
--- NOTE | 2023-03-09 12:31 | PC.NURSE ---
1140- PT DECLINES PAIN MEDICATION, REPORTS HE DOES NOT NEED ANY PAIN MEDICATION AT THIS TIME, IT IS REALLY ONLY PAINFUL WHEN IT IS TOUCHED. PT IS LYING ON STRETCHER WATCHING TV WITHOUT DISTRESS AWAITING RESULTS. WILL CONTINUE TO MONITOR.
== END 2023-03-09 12:15 | disposition home or self-care (01) ==
PROVIDERS: Emergency Provider Emergency Medicine; PCP Physician Assistant
DX: S63.91XA Sprain of unspecified part of right wrist and hand, initial encounter (principal); S66.911A Strain of unspecified muscle, fascia and tendon at wrist and hand level, right hand, initial encounter; I10 Essential (primary) hypertension; F17.210 Nicotine dependence, cigarettes, uncomplicated; Z85.71 Personal history of Hodgkin lymphoma; Z79.891 Long term (current) use of opiate analgesic; X58.XXXA Exposure to other specified factors, initial encounter
CPT/HCPCS: 73130; 99283

== ENCOUNTER 2023-06-18 21:57 | Emergency (ER) | payer SELFPAY ==
--- NOTE | ~2023-06-18 | XR_ITS ---
XR foot LT min 3V 06/18/2023 23:31 INDICATION: Left heel pain PROCEDURE: 4 views left foot COMPARISON: 05/30/2022 FINDINGS: Fracture, dislocation or subluxation is not identified. Lisfranc joint intact. The soft tis sues appear within normal limits. No foreign bodies are identified. IMPRESSION: 1: NO ACUTE BONE OR JOINT ABNORMALITY IDENTIFIED. Reviewed, dictated and finalized at location A.
[2023-06-18 22:34] VITALS: BP 179/115; PULSE 85; RESP 20; TEMP 36.8; O2SAT 96
[2023-06-18 22:37] VITALS: BP 179/115; PULSE 85; RESP 20; TEMP 36.8; O2SAT 96
--- NOTE | 2023-06-18 23:20 | ED.GENADULT ---
HPI - General Adult General Chief complaint: Extremity Injury, Lower Stated complaint: left heel Time Seen by Provider: 06/18/23 21:59 Source: patient Mode of arrival: ambulatory Limitations: physical limitation History of Present Illness HPI narrative: Patient presents for severe left heel pain. Been wearing open heel shoes. Onset (ago): month(s) Location: lower extremity Severity: severe Severity scale (1-10): 9 Quality: stabbing and sharp Pain Consistency: constant Relieving factors: none Exacerbating factors: none Associated symptoms: denies other symptoms Treatments prior to arrival: none Related Data Home Medications Medication Instructions Recorded Confirmed atenolol 50 mg tablet 100 mg PO DAILY 03/22/20 06/18/23 valsartan 160 mg tablet 160 mg PO DAILY 03/22/20 06/18/23 tramadol 50 mg tablet 50 mg PO TID PRN Pain 05/29/20 06/18/23 fenofibrate 160 mg tablet 160 mg PO DAILY 08/05/21 06/18/23 baclofen 10 mg tablet 10 mg PO TID 11/08/22 06/18/23 fluticasone propionate 50 2 spray intranasal DAILY 11/08/22 06/18/23 mcg/actuation nasal spray,suspension Allergies Allergy/AdvReac Type Severity Reaction Status Date / Time iohexol Allergy Itching Verified 06/18/23 22:36 [From contrast - CT, X-RAY] Review of Systems Constitutional: Constitutional: Reports as per HPI and Reports no additional constitutional complaints Eyes: Eyes: Reports as per HPI and Reports no additional eye complaints ENT: Reports system reviewed and no additional complaints, except as documented and Reports as per HPI Cardiovascular: Cardiovascular: Reports as per HPI and Reports no additional cardiovascular complaints Respiratory: Respiratory: Reports as per HPI and Reports no additional respiratory complaints Gastrointestinal: Gastrointestinal: Reports as per HPI and Reports no additional gastrointestinal complaints Genitourinary: Genitourinary: Reports as per HPI Musculoskeletal: Musculoskeletal: Reports no additional musculoskeletal complaints and Reports as per HPI Integumentary/Breasts: Skin/Breast: Reports system reviewed and no additional complaints, except as docu and Reports as per HPI Neurologic: Reports system reviewed and no additional complaints, except as documented and Reports as per HPI Psychiatric: Psychiatric: Reports no additional psychiatric complaints and Reports as per HPI Endocrine: Endocrine: Reports no additional endocrine complaints and Reports as per HPI Hematologic/Lymphatic: Hematologic/Lymphatic: Reports no additional hematologic/lymphatic complaints and Reports as per HPI Allergic/Immunologic: Allergic/Immunologic: Reports no additional allergic/immunologic complaints and Reports as per HPI [facility] Past Medical History Medical History Diverticulitis Eustachian tube dysfunction GERD (gastroesophageal reflux disease) Hodgkin's lymphoma Hypertension Lumbar back pain Family History Family History Father FH: CABG (coronary artery bypass surgery) Social History Social History Smoking packs per day: 0.5 Smoking cigarettes per day: 10.0 Years smoked: 20 Smoking pack-years: 10.00 Smoking status: Current every day smoker Tobacco type: cigarettes Alcohol intake: never Substance use: never Lack of Transportation: No Lack of Food: Never True Current Housing: I Have Housing Concerned About Future Housing: No Difficulty Paying Gas/Electric Bills: No Difficulty Paying for Meds: No Currently Unemployed: No Education: Grade School Difficulty w/ Childcare or Family Care: No Spiritual care concerns: No Exam Const: General: cooperative, healthy appearing, comfortable, no acute distress, well developed, alert, awake, average body habitus and well nourished Nutritional Appearance: average body habitus and w
[2023-06-18 23:32] VITALS: BP 157/103
== END 2023-06-18 23:45 | disposition home or self-care (01) ==
PROVIDERS: Emergency Provider Emergency Medicine; PCP Physician Assistant
DX: M77.32 Calcaneal spur, left foot (principal); I10 Essential (primary) hypertension; Z85.71 Personal history of Hodgkin lymphoma; F17.210 Nicotine dependence, cigarettes, uncomplicated
CPT/HCPCS: 73630; 99283

== ENCOUNTER 2023-11-08 16:33 | Emergency (ER) | payer SELFPAY ==
--- NOTE | ~2023-11-08 | XR_ITS ---
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 RESULT: Lines, tubes, and devices: None. Lungs and pleura: Clear. Linear anterior scar. Cardiomediastinal silhouette: Stable. Other: No acute osseous or upper abdominal finding. IMPRESSION: No acute cardiopulmonary process. Reviewed, dictated and finalized at location K. T TURNER
[2023-11-08 16:33] VITALS: BP 158/112; PULSE 107; RESP 18; TEMP 36.4; O2SAT 95
--- NOTE | 2023-11-08 16:42 | ED.GENADULT ---
HPI - General Adult General Chief complaint: Upper Respiratory Infection Stated complaint: cough sore throat Time Seen by Provider: 11/08/23 16:40 Source: patient Mode of arrival: ambulatory Limitations: no limitations History of Present Illness HPI narrative: 42-year-old asthmatic complains of nonproductive cough the past month associated with postnasal drip wheezing difficulty breathing at times coughs sore throat associated with his cough denies any pain. Other than his throat. Denies any dizziness lightheadedness problems eating or drinking walking talking seeing or hearing fever. He says he has a deviated nasal septum. He is using albuterol inhaler. denies any rash or itching swelling lumps or bumps nausea vomiting diarrhea bleeding or bruising lumps or bumps or swelling. Denies any other complaints Related Data Home Medications Medication Instructions Recorded Confirmed atenolol 50 mg tablet 100 mg PO DAILY 03/22/20 11/08/23 valsartan 160 mg tablet 160 mg PO DAILY 03/22/20 11/08/23 tramadol 50 mg tablet 50 mg PO TID PRN Pain 05/29/20 11/08/23 fenofibrate 160 mg tablet 160 mg PO DAILY 08/05/21 11/08/23 baclofen 10 mg tablet 10 mg PO TID 11/08/22 11/08/23 fluticasone propionate 50 2 spray intranasal DAILY 11/08/22 11/08/23 mcg/actuation nasal spray,suspension Allergies Allergy/AdvReac Type Severity Reaction Status Date / Time iohexol Allergy Itching Verified 11/08/23 16:41 [From contrast - CT, X-RAY] Review of Systems Review of Systems: All systems reviewed & are unremarkable except as noted in HPI and below PMFSH Past Medical History Medical History Diverticulitis Eustachian tube dysfunction GERD (gastroesophageal reflux disease) Hodgkin's lymphoma Hypertension Lumbar back pain Family History Family History Father FH: CABG (coronary artery bypass surgery) Social History Social History Smoking packs per day: 0.5 Smoking cigarettes per day: 10.0 Years smoked: 20 Smoking pack-years: 10.00 Smoking status: Current every day smoker Tobacco type: cigarettes Alcohol intake: never Substance use: never Lack of Transportation: No Lack of Food: Never True Current Housing: I Have Housing Concerned About Future Housing: No Difficulty Paying Gas/Electric Bills: No Difficulty Paying for Meds: No Currently Unemployed: No Education: Grade School Difficulty w/ Childcare or Family Care: No Spiritual care concerns: No Exam Narrative: Patient is a male female? and appears in no apparent distress. with a nonproductive cough. ? Head is normocephalic atraumatic. ? Eyes:? Pupils are equal round react light extraocular movements are intact. ? Ears:? TMs are normal .? Ear canals are normal.? Hearing is grossly normal. ? Nose:? Normal. ? Throat:? Oropharynx is clear with moist mucous membranes.? Posterior pharynx is clear with no exudates. ? Neck:? Supple no lymphadenopathy.? Full range of motion? without tenderness. ??Lungs:? Bronchial breath sounds few scattered wheezes with prolonged expiration. Thorax:? Chest wall nontender without crepitation. ? Heart:? Regular rate and rhythm without murmurs gallops or rubs. ? Back:? Nontender. ? Abdomen:? Positive bowel sounds, soft, nontender, no hepatosplenomegaly or masses, no CVA tenderness, no abdominal bruits, no guarding or rebound. ? Extremities:? Full range of motion nontender .?? No cyanosis clubbing or edema. ?Neuro:? alert and oriented x4.? Motor and sensory grossly intact.? Speech is normal.? Affect normal.? Cranial nerves 2-12 are normal . ? Skin:? Warm and dry without lesions. Medical Decision Making [facility] Narrative Medical decision making narrative: Patient Placed in room 1 history and physical was performed he was given albuterol nebulizer chest x-ray is
[2023-11-08 16:45] VITALS: O2SAT 95
[2023-11-08 16:46] VITALS: PULSE 88; RESP 20; O2SAT 95
[2023-11-08] MEDS: ALBUTEROL SULFATE NEB 2.5 MG/3 ML INH INHALATION (16:46)
[2023-11-08] MEDS: predniSONE 20 MG TABLET 60 MG PO (16:48)
[2023-11-08 16:54] VITALS: BP 158/112; PULSE 107; RESP 18; TEMP 36.4; O2SAT 95
[2023-11-08 16:55] VITALS: PULSE 89; RESP 20; O2SAT 97
[2023-11-08 17:22] LABS: Influenza A QL RT-PCR Negative (Negative); Influenza B QL RT-PCR Negative (Negative); RSV RNA, RT-PCR Negative (Negative); SARS-CoV-2 RNA PCR Negative (Negative)
[2023-11-08 17:29] LABS: Strep Group A RT-PCR Not Detected (Negative)
[2023-11-08 17:49] VITALS: BP 144/105; PULSE 103; RESP 18; TEMP 37.3; O2SAT 93
== END 2023-11-08 17:53 | disposition home or self-care (01) ==
PROVIDERS: Emergency Provider Emergency Medicine; PCP Physician Assistant
DX: J45.41 Moderate persistent asthma with (acute) exacerbation (principal); I10 Essential (primary) hypertension; F17.210 Nicotine dependence, cigarettes, uncomplicated; Z79.891 Long term (current) use of opiate analgesic; Z79.899 Other long term (current) drug therapy; Z85.72 Personal history of non-Hodgkin lymphomas; Z20.822 Contact with and (suspected) exposure to COVID-19
CPT/HCPCS: 71046; 87637; 87651; 94640; 99283; J7512

== ENCOUNTER 2024-03-11 19:47 | Emergency (ER) | payer BC, SELFPAY ==
--- NOTE | ~2024-03-11 | CT_ITS ---
EXAMINATION: CT abdomen pelvis wo con DATE: 03/11/2024 20:47 INDICATION: Abdominal pain. Diverticulitis. TECHNIQUE: Computed tomography (CT) of the abdomen and pelvis was performed without intravenous contr ast. Automated exposure control and iterative reconstruction technique were employed. The dose-length product was 1632.24 mGy-cm. COMPARISON: None. FINDINGS: The visualized portions of the lung bases demonstrate minimal atelectasis. No pleural effus ion. The heart size is normal. No pericardial effusion. The liver is normal. There is a gallstone in the gallbladder, which is contracted. The spleen, pancreas, and adrenal glands are normal. There is a 2 mm stone in right kidney. Left kidney is normal. There are bilateral inguinal hernias containing f at. There are no dilated loops of bowel. The appendix is normal. There are scattered diverticula in t he colon. There is wall thickening of the sigmoid colon with adjacent mild fat stranding. There are n o pathologically enlarged lymph nodes. There is no free intraperitoneal fluid. There is mild thoracic and lumbar spondylosis. There is mild chronic anterior wedging of multiple thoracic vertebral bodies . IMPRESSION: 1. Mild sigmoid 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. No perforation or abscess. Reviewed, dictated and finalized at location E.
[2024-03-11 19:48] VITALS: BP 139/97; PULSE 86; RESP 18; TEMP 37.1; O2SAT 94
--- NOTE | 2024-03-11 20:36 | ED.GENADULT ---
HPI - General Adult General Chief complaint: Unspecified Stated complaint: rectal bleeding History of Present Illness HPI narrative: 43 years old white male drove himself to the emergency room complaining of rectal bleeding over the last 3 days, with bowel movement, fresh red bright blood. History of rectal bleeding in the past. History of 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, was seen by his window glazier last week had CT scan of the abdomen and pelvis 4 days ago, unknown result. History of hypertension, 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, GERD, tobacco dependent. He does not drink. Denies history of abdominal surgery. Currently complaining of abdominal pain and nausea. Aggravated with eating, no relieving factors Related Data Home Medications Medication Instructions Recorded Confirmed atenolol 50 mg tablet 100 mg PO DAILY 03/22/20 11/08/23 valsartan 160 mg tablet 160 mg PO DAILY 03/22/20 11/08/23 tramadol 50 mg tablet 50 mg PO TID PRN Pain 05/29/20 11/08/23 fenofibrate 160 mg tablet 160 mg PO DAILY 08/05/21 11/08/23 baclofen 10 mg tablet 10 mg PO TID 11/08/22 11/08/23 fluticasone propionate 50 2 spray intranasal DAILY 11/08/22 11/08/23 mcg/actuation nasal spray,suspension Allergies Allergy/AdvReac Type Severity Reaction Status Date / Time iohexol Allergy Itching Verified 03/11/24 20:08 [From contrast - CT, X-RAY] Review of Systems Review of Systems: All systems reviewed & are unremarkable except as noted in HPI and below PMFSH Past Medical History Medical History Diverticulitis Eustachian tube dysfunction GERD (gastroesophageal reflux disease) Hodgkin's lymphoma Hypertension Lumbar back pain Family History Family History Father FH: CABG (coronary artery bypass surgery) Social History Social History Smoking packs per day: 0.5 Smoking cigarettes per day: 10.0 Years smoked: 20 Smoking pack-years: 10.00 Smoking status: Current every day smoker Tobacco type: cigarettes Alcohol intake: never Substance use: never Lack of Transportation: No Lack of Food: Never True Current Housing: I Have Housing Concerned About Future Housing: No Difficulty Paying Gas/Electric Bills: No Difficulty Paying for Meds: No Currently Unemployed: No Education: Grade School Difficulty w/ Childcare or Family Care: No Spiritual care concerns: No Exam Narrative: General appearance: Well-developed, well-nourished Skin: Normal color Head: Normocephalic, nontraumatic Eyes: Clear conjunctiva ENT: Oropharynx normal, ears normal, nose normal Neck: Supple, nontender Chest and respiratory: Airway patent, no respiratory distress, no accessory muscle use Heart: Regular rate/rhythm Abdomen: Soft, mild diffuse tenderness, no organomegaly, quiet bowel sounds Vascular: Normal peripheral pulses, normal capillary refill. Musculoskeletal: Normal range of motion, nontender back Neurologic: Alert and oriented ?3, [employer] is normal as tested, no gross motor deficit Course Vital Signs Vital signs: Vital Signs Temperature 37.1 C 03/11/24 19:48 Pulse Rate 86 03/11/24 19:48 Respiratory Rate 18 03/11/24 19:48 Blood Pressure 139/97 H 03/11/24 19:48 Pulse Oximetry 94 03/11/24 19:48 Oxygen Delivery Room Air 03/11/24 19:48 Temperature 37.1 C 03/11/24 19:48 Pulse Rate 86 03/11/24 19:48 Respiratory Rate 18 03/11/24 19:48 Blood Pressure 139/97 H 03/11/24 19:48 Pulse Oximetry 94 03/11/24 19:48 Oxygen Delivery Room Air 03/11/24 19:48 Medical Decision Sarah Beth
[2024-03-11] MEDS: ONDANSETRON INJ 4 MG/2 ML VIAL 8 MG IV PUSH (20:47)
[2024-03-11] MEDS: SODIUM CHLORIDE 0.9% IV 1,000 ML 999 ML IV CONT (20:48)
[2024-03-11 20:58] LABS: Basophils Absolute Auto 0.07 K/mm3 (0.00-0.10); Basophils Percent Auto 0.6 % (0.0-1.0); Eosinophils Absolute Auto 0.24 K/mm3 (0.02-0.50); Eosinophils Percent Auto 2.2 % (1.0-6.0); Hematocrit 46.6 % (40.0-54.0); Hemoglobin 15.2 g/dL (14.0-18.0); Immature Granulocyte Absolute 0.04 K/mm3 (0.00-0.00); Immature Granulocyte Percent A 0.4 % (0.0-0.0); Lymphocytes Absolute Auto 2.59 K/mm3 (1.10-4.50); Lymphocytes Percent Auto 23.8 % (18.0-42.0); Mean Corpuscular HGB Conc 32.6 g/dL (32-36); Mean Corpuscular Hemoglobin 27.6 pg (27.0-31.0); Mean Corpuscular Volume 84.6 fL (78.0-102.0); Mean Platelet Volume 9.9 fl (8.7-11.0); Monocytes Percent Auto 10.1 % (2.0-11.0); Neutrophils Absolute Auto 6.83 K/mm3 (1.70-7.20); Neutrophils Percent Auto 62.9 % (50.0-70.0); Platelet Count Result 318 K/mm3 (150-420); Red Blood Count 5.51 M/mm3 (4.70-6.10); Red Cell Distribution Width 13.2 % (11.6-14.4); White Blood Count 10.9 K/mm3 (4.8-10.8)
[2024-03-11 21:13] LABS: Alanine Aminotransferase 23 U/L (16-63); Albumin Level 3.6 g/dL (3.4-5.0); Alkaline Phosphatase 97 U/L (46-116); Anion Gap 11 mmol/L (4-12); Aspartate Amino Transferase 22 U/L (15-37); Bilirubin,Total 0.3 mg/dL (0.00-1.00); Blood Urea Nitrogen 19 mg/dL (7-18); Calcium 8.5 mg/dL (8.5-10.1); Carbon Dioxide 27 mmol/L (21-32); Chloride 102 mmol/L (98-108); Estimated CRCL calculation 105 ml/min; Estimated Glomerular Filt Rate > 60; Glucose 117 mg/dL (70-99); Lipase 44 U/L (16-77); Osmolality Calculated 293 mOsm/kg (285-295); Potassium 3.9 mmol/L (3.5-5.1); Sodium 140 mmol/L (136-145); Total Protein 7.1 g/dL (6.4-8.2)
[2024-03-11 21:18] LABS: Lactic Acid Reflex < 0.3 mmol/L (0.4-2.0)
[2024-03-11] MEDS: levoFLOXacin 500 MG TABLET 750 MG PO (21:51)
[2024-03-11] MEDS: metroNIDAZOLE 250 MG TABLET 500 MG PO (21:51)
[2024-03-11 21:59] VITALS: BP 142/92; PULSE 80; RESP 18; O2SAT 94
[2024-03-11 23:18] LABS: Occult Blood Positive (Negative)
== END 2024-03-11 21:59 | disposition home or self-care (01) ==
PROVIDERS: Emergency Provider Emergency Medicine; PCP Physician Assistant
DX: K57.92 Diverticulitis of intestine, part unspecified, without perforation or abscess without bleeding (principal); I10 Essential (primary) hypertension; K21.9 Gastro-esophageal reflux disease without esophagitis; Z85.71 Personal history of Hodgkin lymphoma; F17.210 Nicotine dependence, cigarettes, uncomplicated
CPT/HCPCS: 36415; 74176; 80053; 82272; 83605; 83690; 85025; 96361; 96374; 99284; A9270; J2405; J7030

== ENCOUNTER 2024-09-11 08:02 | Emergency (ER) | payer BC, SELFPAY ==
--- NOTE | ~2024-09-11 | CT_ITS ---
EXAMINATION: CT lumbar spine wo con DATE: 09/11/2024 08:40 INDICATION: 6 hours of low back pain TECHNIQUE: Computed tomography (CT) of the lumbar spine was performed without intravenous contrast. A utomated exposure control and iterative reconstruction technique were employed. The dose-length produ ct was 1340.84 mGy-cm. COMPARISON: CT dated 03/11/2024 and 11/08/2022 FINDINGS: Alignment is normal. There is chronic mild likely physiologic anterior wedging at T12 and L 1. There is mild disc height loss at T11-T12 and T12-L1, L1-L2 and L3-L4. Unchanged 2 mm nonobstructi ng stone in the upper pole of the right kidney. Moderate diverticulosis at the visualized sigmoid col on without adjacent from trace stranding to suggest 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. There is unchanged mild wall thic kening likely related to sequela recurrent 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 at the mid sigmoid colon. No change since 1 01/09/2022 in a few mildly prominent but still normal-sized likely reactive lymph nodes along the sigm oid mesentery. Mild osteoarthritis at the bilateral sacroiliac joints. The following disc levels are specifically discussed: T11-T12: There is mild bilateral facet joint osteoarthritis. There is no neural foraminal stenosis. T here is no central canal stenosis. T12-L1: There is mild bilateral facet joint osteoarthritis. There is no neural foraminal stenosis. Th ere is no central canal stenosis. L1-L2: Disc is mildly bulging. There is mild right and minimal left facet joint osteoarthritis. There is mild bilateral neural foraminal stenosis. There is minimal central canal stenosis. L2-L3: Disc is minimally bulging. There is mild bilateral facet joint osteoarthritis. There is mild b ilateral neural foraminal stenosis. There is minimal central canal stenosis. L3-L4: There is mild right and minimal left facet joint osteoarthritis. There is no neural foraminal stenosis. There is no central canal stenosis. L4-L5: Disc is minimally bulging. There is mild bilateral facet joint osteoarthritis. There is mild b ilateral neural foraminal stenosis. There is minimal central canal stenosis. L5-S1: Small central disc protrusion. There is mild right and minimal left facet joint osteoarthritis . There is minimal bilateral neural foraminal stenosis. There is no central canal stenosis. IMPRESSION: 1. Mild lumbar and lower thoracic spondylosis. 2. 2 mm nonobstructing right renal stone. 3. Sigmoid diverticulosis with stigmata of chronic 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. Reviewed, dictated and finalized at location A.
[2024-09-11 08:06] VITALS: BP 146/98; PULSE 71; RESP 20; TEMP 36.6; O2SAT 97
--- NOTE | 2024-09-11 08:12 | ED.GENADULT ---
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 He has had a little bit of runny nose no shortness of breath or difficulty breathing. Denies any other complaints. Related Data Home Medications Medication Instructions Recorded Confirmed atenolol 50 mg tablet 100 mg PO DAILY 03/22/20 09/11/24 valsartan 160 mg tablet 160 mg PO DAILY 03/22/20 09/11/24 tramadol 50 mg tablet 50 mg PO TID PRN Pain 05/29/20 09/11/24 baclofen 10 mg tablet 10 mg PO TID 11/08/22 09/11/24 Allergies Allergy/AdvReac Type Severity Reaction Status Date / Time iohexol Allergy Itching Verified 09/11/24 08:09 [From contrast - CT, X-RAY] Review of Systems Review of Systems: All systems reviewed & are unremarkable except as noted in HPI and below PMFSH Past Medical History Medical History Diverticulitis Eustachian tube dysfunction GERD (gastroesophageal reflux disease) Hodgkin's lymphoma Hypertension Lumbar back pain Family History Family History Father FH: CABG (coronary artery bypass surgery) Social History Social History Smoking packs per day: 0.5 Smoking cigarettes per day: 10.0 Years smoked: 20 Smoking pack-years: 10.00 Smoking status: Current every day smoker Tobacco type: cigarettes Alcohol intake: never Substance use: never Lack of Transportation: No Lack of Food: Never True Current Housing: I Have Housing Concerned About Future Housing: No Difficulty Paying Gas/Electric Bills: No Difficulty Paying for Meds: No Currently Unemployed: No Education: Grade School Difficulty w/ Childcare or Family Care: No Spiritual care concerns: No Exam Narrative: White male patient with Moderate distress.? Head normocephalic, atraumatic.? Eyes conjunctiva pink sclera nonicteric.? Extraocular movements are intact.? Ears externally normal.? Oropharynx is clear with moist mucous membranes without exudates.? Neck is supple nontender no lymphadenopathy.? Back: No CVA tenderness, lumbar tenderness and paralumbar tenderness. The rest of his back is nontender.? negative straight leg raise bilaterally. Lungs are clear.? Heart is regular rate and rhythm without murmurs gallops or rubs.? Chest wall nontender. Abdomen is soft and nontender no hepatosplenomegaly or masses no CVA tenderness no abdominal bruits.? Extremities no cyanosis clubbing or edema.? Skin is warm and dry without rashes or lesions.? Neurological patient is alert and oriented x4.? Motor and sensory grossly intact.? Deep tendon reflexes are +2 equal bilateral for lower extremities. Gait is antalgic. Course Vital Signs Vital signs: Vital Signs Temperature 36.6 C 09/11/24 08:06 Pulse Rate 71 09/11/24 08:06 Respiratory Rate 20 09/11/24 08:06 Blood Pressure 146/98 H 09/11/24 08:06 Pulse Oximetry 97 09/11/24 08:06 Oxygen Delivery Room Air 09/11/24 08:06 Temperature 36.6 C 09/11/24 08:06 Pulse Rate 71 09/11/24 08:06 Respiratory Rate 20 09/11/24 08:06 Blood Pressure 146/98 H 09/11/24 08:06 Pulse
[2024-09-11] MEDS: KETOROLAC 30 MG/ML VIAL (*BKC) IM (08:30)
[2024-09-11 09:20] VITALS: BP 141/77; PULSE 69; RESP 16; TEMP 36.7; O2SAT 99
== END 2024-09-11 09:20 | disposition home or self-care (01) ==
PROVIDERS: Emergency Provider Emergency Medicine; PCP Physician Assistant
DX: M51.369 Other intervertebral disc degeneration, lumbar region without mention of lumbar back pain or lower extremity pain (principal); I10 Essential (primary) hypertension; F17.210 Nicotine dependence, cigarettes, uncomplicated; Z79.891 Long term (current) use of opiate analgesic; Z79.899 Other long term (current) drug therapy
CPT/HCPCS: 72131; 96372; 99284; J1885

== ENCOUNTER 2024-10-27 12:22 | Emergency (ER) | payer BC, SELFPAY ==
--- NOTE | ~2024-10-27 | XR_ITS ---
XR elbow LT min 3V DATE: 10/27/2024 12:34 INDICATION: Fall. Left elbow pain and swelling TECHNIQUE: 3 views COMPARISON: None FINDINGS: No fracture or dislocation or joint effusion. No periosteal reaction or bone destruction. J oint spaces are well preserved. IMPRESSION: Negative Reviewed, dictated and finalized at location A. S CUTTER IMPRESSION: Negative
[2024-10-27 12:23] VITALS: BP 173/120; PULSE 105; RESP 18; TEMP 36; O2SAT 91
[2024-10-27] MEDS: KETOROLAC (*BKC) 60 MG/2 ML VIAL IM (12:34)
--- NOTE | 2024-10-27 12:49 | ED.UPPEXIN ---
HPI - Extremity Injury (Upper) General Chief Complaint: Extremity Injury, Upper Stated Complaint: elbow pain Time Seen by Provider: 10/27/24 12:25 Source: patient Mode of arrival: ambulatory Limitations: no limitations History of Present Illness HPI narrative: patient is a 43-year-old male with a significant past medical history that presents today with a fall and left elbow injury. Patient fell and fell backwards and had a left elbow injury. He did hit his elbow directly but hyperextending his elbow when he fell and then he hit his elbow directly. There is edema on his left elbow. MD complaint: injury to: left Onset (ago): hour(s) Other Extremity Injury: Left: elbow Other injuries: none Handedness: right Place: outdoors Severity: moderate Severity scale (1-10): 5 Relieving factors: none Exacerbating factors: none Context: direct blow Associated symptoms: denies other symptoms Related Data Home Medications Medication Instructions Recorded Confirmed atenolol 50 mg tablet 100 mg PO DAILY 03/22/20 10/27/24 valsartan 160 mg tablet 160 mg PO DAILY 03/22/20 10/27/24 tramadol 50 mg tablet 50 mg PO TID PRN Pain 05/29/20 10/27/24 baclofen 10 mg tablet 10 mg PO TID 11/08/22 10/27/24 Allergies Allergy/AdvReac Type Severity Reaction Status Date / Time iohexol Allergy Itching Verified 09/11/24 08:09 [From contrast - CT, X-RAY] Review of Systems Review of Systems: All systems reviewed & are unremarkable except as noted in HPI and below Constitutional: Constitutional: Reports as per HPI Eyes: Eyes: Reports no additional eye complaints ENT: Reports system reviewed and no additional complaints, except as documented Cardiovascular: Cardiovascular: Reports no additional cardiovascular complaints Respiratory: Respiratory: Reports no additional respiratory complaints Gastrointestinal: Gastrointestinal: Reports no additional gastrointestinal complaints Genitourinary: Genitourinary: Reports no additional male genitourinary complaints Musculoskeletal: Musculoskeletal: Reports as per HPI and Reports arthralgias (left elbow ) Integumentary/Breasts: Skin/Breast: Reports system reviewed and no additional complaints, except as docu Neurologic: Reports system reviewed and no additional complaints, except as documented Psychiatric: Psychiatric: Reports no additional psychiatric complaints Endocrine: Endocrine: Reports no additional endocrine complaints Hematologic/Lymphatic: Hematologic/Lymphatic: Reports no additional hematologic/lymphatic complaints Allergic/Immunologic: Allergic/Immunologic: Reports no additional allergic/immunologic complaints [facility] Past Medical History Medical History Diverticulitis Eustachian tube dysfunction GERD (gastroesophageal reflux disease) Hodgkin's lymphoma Hypertension Lumbar back pain Family History Family History Father FH: CABG (coronary artery bypass surgery) Social History Social History Smoking packs per day: 0.5 Smoking cigarettes per day: 10.0 Years smoked: 20 Smoking pack-years: 10.00 Smoking status: Current every day smoker Tobacco type: cigarettes Alcohol intake: never Substance use: never Lack of Transportation: No Lack of Food: Never True Current Housing: I Have Housing Concerned About Future Housing: No Difficulty Paying Gas/Electric Bills: No Difficulty Paying for Meds: No Currently Unemployed: No Education: Grade School Difficulty w/ Childcare or Family Care: No Spiritual care concerns: No Exam Const: General: healthy appearing Nutritional Appearance: well nourished Orientation/consciousness: patient oriented x3 HENMT: Head: normal to inspection Ears: external ears normal Face/Nose/Sinus: Normal external nose present Face and sinus: normal facial exam Eyes: Conjunctivae: conjunctivae normal Pupils: Equal, round and reactive pupils present EOM: EOMs intact bilaterally Neck: Neck: normal visual inspection Chest: Chest palpation & inspection: normal inspection of the chest Resp: Effort & Inspection: normal respiratory effort Auscultation: clear to auscultation bilaterally Cardio: Rate: regular rate Rhythm: regular rhythm GI: GI Palp: Yes Soft to palpation Back/Spine/Pelvis: Back: no CVA tenderness Skin: General skin exam: normal color Rashes: no rashes Wounds: no wounds Neuro: General: patient oriented x3 Cranial nerves: Yes Nystagmus not present Speech: normal speech Extrem: General: edema ( Left elbow, tender to palpation) Psych: Mental Status: mental status grossly normal Affect: normal affect Attitude: cooperative Course Vital Signs Vital signs: Vital Signs Temperature 96.8 F L 10/27/24 12:23 Pulse Rate 105 H 10/27/24 12:23 Respiratory Rate 18 10/27/24 12:23 Blood Pressure 173/120 H 10/27/24 12:23 Pulse Oximetry 91 10/27/24 12:23 Oxygen Delivery Room Air 10/27/24 12:23 Temperature 96.8 F L 10/27/24 12:23 Pulse Rate 105 H 10/27/24 12:23 Respiratory Rate 18 10/27/24 12:23 Blood Pressure 173/120 H 10/27/24 12:23 Pulse Oximetry 91 10/27/24 12:23 Oxygen Delivery Room Air 10/27/24 12:23 Procedures Joint Aspiration/Injection Joint Asp./Inject. 1: Joint Aspiration Date: 10/27/24 Joint Aspiration Time: 13:10 Time Out Performed: Yes Side of body: left Joint Aspirated: elbow Ultrasound Guidance: No Skin Prep: Povidone-Iodine1% Local Anesthetic: lidocaine 1% Amount of anesthesia used (mL): 1 Needle Size Used: 22G Medication Injected, if any: other (dexamethasone) Amount of medication injected (mL): 1 Patient Tolerated Procedure: well Complications: none MDM - Extremity Injury (Upper) MDM Narrative Medical decision making narrative: patient has swelling to his left elbow and pain with extension and flexion and any movement. Possible fracture to the elbow will do an x-ray three view to the left elbow. Also apply ice in the meantime. Discussed with patient doing an intra-articular injection and he has chosen to do so and would like this done. We will do intra-articular injection to the left elbow to Lateral epicondyle area. Differential Diagnosis Differential diagnosis: Likely other ( elbow injury) Medical Records Attestation: I reviewed the patient's medical records. Lab Data Attestation: I reviewed the patient's lab results. Discharge Plan Discharge Clinical Impression: Injury of elbow, left, Elbow pain, left Patient Disposition: Home, Self-Care Condition: Stable Instructions: Elbow Sprain (ED) Additional Instructions: keep ice on left elbow for the next 2 days then switch to heat. Take ibuprofen as needed for the pain. Prescriptions: No Action atenolol 50 mg tablet 100 mg PO DAILY valsartan 160 mg tablet 160 mg PO DAILY tramadol 50 mg tablet 50 mg PO TID PRN (Reason: Pain) baclofen 10 mg tablet 10 mg PO TID Follow-up/Referrals: Francois,LIBBY Almeida [Primary Care Provider] - Time of Disposition: 13:13
[2024-10-27] MEDS: dexAMETHasone SOD PHOS INJ 10 MG/ML 1 ML VIAL 4 MG IM (12:55)
[2024-10-27] MEDS: LIDOCAINE HCL 1% LOCAL INJ 10 ML VIAL INFILTRATE (12:55)
[2024-10-27 13:20] VITALS: BP 142/110; PULSE 87; RESP 20; TEMP 36.8; O2SAT 94
== END 2024-10-27 13:20 | disposition home or self-care (01) ==
PROVIDERS: Emergency Provider Family Medicine; PCP Physician Assistant
DX: S59.902A Unspecified injury of left elbow, initial encounter (principal); I10 Essential (primary) hypertension; F17.210 Nicotine dependence, cigarettes, uncomplicated; Z79.899 Other long term (current) drug therapy; W19.XXXA Unspecified fall, initial encounter
CPT/HCPCS: 20605; 73080; 96372; 99284; J1100; J1885; J2003

== ENCOUNTER 2025-01-19 00:11 | Emergency (ER) | payer BC, SELFPAY ==
[2025-01-19 00:11] VITALS: BP 142/105; PULSE 70; RESP 18; TEMP 36.4; O2SAT 93
--- OUTSIDE RECORDS SUMMARY | 2025-01-19 00:14 | XMS_ITS | Clinical Summary ---
Author Organization [facility] Address [address] [place] [address] Care Team Providers Care Pharmacy Benefits Coordinator Name Role Phone Bret Parrish Primary Care Provider [phone] Allergies Active Allergy Reactions Criticality Noted Date Comments Iodine Itching Low 12/14/2017 Medications albuterol sulfate HFA 108 (90 Base) MCG/ACT inhaler TAKE 2 PUFFS BY MOUTH 4 TIMES A DAY NEEDED 05/26/2020 Active atenolol 100 MG tablet Take 100 mg by mouth daily. 01/17/2021 Active baclofen 10 MG tablet Take 10 mg by mouth 3 (three) times daily. 12/26/2020 Active valsartan 160 MG tablet 03/26/2021 Active traMADol 50 MG tablet Take 50 mg by mouth 3 (three) times daily. 03/09/2021 Active Social History Tobacco Use Types Packs/Day Years Used Date Smoking Tobacco: Every Day Smokeless Tobacco: Never Alcohol Use Standard Drinks/Week Comments Not Currently 0 (1 standard drink = 0.6 oz pur e alcohol) Sex and Gender Information Value Date Recorded Sex Assigned at Not on file Legal Sex Male 8:25 PM CDT Gender Identity Not on file Sexual Orientation Not on file Last Filed Vital Signs Vital Sign Reading Time Taken Comments Blood Pressure 138/92 03/30/2021 10:53 AM CDT Pulse 66 03/30/2021 10:53 AM CDT Temperature 35.9 C (96.7 F) 03/30/2021 8:05 AM CDT Respiratory Rate 18 03/30/2021 10:53 AM CDT Oxygen Saturation 100% 03/30/2021 10:53 AM CDT Inhaled Oxygen Concentration - - Weight 136.1 kg (300 lb) 03/30/2021 8:05 AM CDT Height 180.3 cm (5' 11 ) 03/30/2021 8:05 AM CDT Body Mass Index 41.84 03/30/2021 8:05 AM CDT Plan of Treatment Health Maintenance Due Date Last Done Comments Annual Physical 1983 Pneumococcal Vaccine: Pediat rics (0 to 5 Years) and At-Risk Patients (6 to 64 Years) (1 of 2 - PCV) 1986 Hepatitis C 1998 DTaP, Tdap and Td Vaccines ( 1 - Tdap) 1999 Hepatitis B Vaccines (1 of 3 - 19+ 3-dose series) 1999 COVID-19 Vaccine ( - 2023-2 5 season) 2024 Influenza Adult (#1) 2024 HPV Vaccines Aged Out No longer eligi ble based on patient's age to complete this topic Meningococcal B Vaccine Aged Out No l onger eligible based on patient's age to complete this topic Meningococcal Vaccine Aged Out No sachin ariel eligible based on patient's age to complete this topic RSV Immunizations Under 20 Months Aged Out No longer eligible based on patient's age to complete this topic Insurance GENERIC - COMMERCIAL Care Teams Pharmacy Benefits Coordinator Relationship Specialty Start Date End Date Bret Parrish PA [address] [place] [address] PCP - General PHYSICIAN MOUNTER 03/30/21
--- OUTSIDE RECORDS SUMMARY | 2025-01-19 00:14 | XMS_ITS | Encounter Summary ---
Author Organization [facility] Address [address] [place] [address] Phone Care Team Providers Care Manager Placement Name Role Phone Bret Parrish Primary Care Provider Encounter Details Date Type Department Care Team (Late st Contact Info) Description 12/06/2017 Orders Only [facility] Provider, MD Nadja [address] [place] [id number] Social History Tobacco Use Types Packs/Day Years Used Date Smoking Tobacco: Every Day Cigarettes Smokeless Tobacco: Never Alcohol Use Standard Drinks/Week Comments No 0 (1 standard drink = 0.6 oz pur e alcohol) Sex and Gender Information Value Date Recorded Sex Assigned at Not on file Legal Sex Male 7:06 PM LIPSTICK MOLDER Gender Identity Not on file Sexual Orientation Not on file documented as of this encounter Plan of Treatment Not on file documented as of this encounter Procedures Procedure Name Priority Date/Time Associated Diagnosis Comments DISCHARGE LABORATORY CUMULATIVE REPORT 12/06/2017 12:00 AM LIPSTICK MOLDER documented in this encounter Results * DISCHARGE LABORATORY CUMULATIVE REPORT (12/06/2017 12:00 AM LIPSTICK MOLDER) Narrative 12/06/2017 12:00 AM LIPSTICK MOLDER Ordered by an unspecified provider. Historical Provider LAB BLOOD ORDERABLES Tory l Result documented in this encounter Visit Diagnoses Not on filedocumented in this encounter Additional Health Concerns Infection Onset Date Last Indicated Resolved Time COVID19 Comment:Added from the Screening question BPA, identifying patients that tested positive for COVID in the last 14 days and the result is from a facility outside [facility] . 08/31/2021 08/31/2021 09/14/2021 3:05 AM CDT documented as of this encounter Care Teams Manager Placement Relationship Specialty Start Date End Date Bret Parrish PA [address] [place] [address] PCP - General 03/26/16 documented as of this encounter
--- OUTSIDE RECORDS SUMMARY | 2025-01-19 00:14 | XMS_ITS | Data Portability ---
Author Organization [facility] Address [address] [facility] [address] [place] [address] Care Team Providers Care Certified Prosthetist Vice President Name Role Phone YUE WOODWARD Referring Provider Assessment No assessment recorded. Plan of Treatment Reminders Order Date Submit Date Provider Last Modified By Organization Details Last Modified Time Details Appointments None record ed. Lab None record ed. Referral None record ed. Procedures None record ed. Surgeries None record ed. Imaging None record ed. Medication Orders None record ed. Patient TargetsNo targets recorded. Patient InstructionsNo instructions recorded. Reason for Referral None Reported. Procedures Surgical History Date Name Laterality Status Provider Name and Address Organization Details Recorded Time 01/20/2018 Sleep Study completed Sharath Jin [address] [facility] [address], [place], [address], [facility] [place] 01/30/2018 09:47:41 Imaging Results None recorded. Procedure Notes None recorded. Medical Equipment None Reported. Vitals None Recorded Social History None recorded. Functional Status None recorded. Mental Status None recorded. Family History Nothing Reported. Medical History No medical history recorded. Past Encounters Encounter ID Performer Location Encounter Start Date Encounter Closed Date Diagnosis/Indication Diagnosis SNOMED-CT Code Diagnosis ICD10 Code Diagnosis Note [id number] Sharath Jin [facility] 11) [address] [facility] [place] [address] 01/20/2018 16:17:43 01/26/2018 10:20:56 Obstructive sleep apnea of adult 5190602850 103 G47.33 Health Concerns Section Related Observation LastModified by Organization Detai ls LastModified Time None Recorded Concern Status LastModified by Organization Details LastModified Time None Recorded Advance Directives Directive None Recorded Payers Encounter Date Sequence Insurance Name Policy Number Policy Keene Covered Member ID Keene Member ID Guarantor Name 01/16/[address] [place] [address] [id number] Praveen Duong [id number] Praveen Duong
--- OUTSIDE RECORDS SUMMARY | 2025-01-19 00:14 | XMS_ITS | Clinical Summary ---
Author Organization [facility] Address [address] [place] [address] Phone Care Team Providers Care Pipe Supervisor Name Role Phone Bret Parrish Primary Care Provider [phone] Allergies No known active allergies Medications diclofenac (VOLTAREN) 75 MG Tablet Delayed Response 0 6 Active famotidine (PEPCID) 40 MG Tablet 0 6 Active gabapentin (NEURONTIN) 600 MG Tablet 800 mg. 1 6 Active gemfibrozil (LOPID) 600 MG Tablet 0 6 Active omeprazole (PRILOSEC) 20 MG CAPSULE DELAYED RELEASE 0 6 Active traMADol (ULTRAM) 50 MG Tablet 0 6 Active atenolol (TENORMIN) 50 MG Tablet Take by mouth. Activ e TESTOSTERONE TD by Subcutaneous route. Active Active Problems Problem Noted Date Diagnosed Date ADDIE (obstructive sleep apnea) 01/05/2018 Non morbid obesity 01/05/2018 Essential (primary) hypertension 01/05/2018 Tobacco use disorder 01/05/2018 Family History Medical History Relation Name Comments Heart Disease Father Hypertension Father Cancer Maternal Grandmother Chronic Obstructive Pulmonary Disease Mother Diabetes Mother Emphysema Mother Heart Disease Paternal Grandmother Relation Name Status Comments Father Alive Maternal Grandmother Mother Alive Paternal Grandmother Alive Social History Tobacco Use Types Packs/Day Years Used Date Smoking Tobacco: Every Day Cigarettes 0.5 19 Smokeless Tobacco: Never Tobacco Cessation:Ready to Q uit: Yes; Counseling Given: No Alcohol Use Standard Drinks/Week Comments Yes 0 (1 standard drink = 0.6 oz pur e alcohol) ocassionally Sex and Gender Information Value Date Recorded Sex Assigned at Not on file Legal Sex Male 12:25 AM CDT Gender Identity Not on file Sexual Orientation Not on file Last Filed Vital Signs Vital Sign Reading Time Taken Comments Blood Pressure 130/88 01/05/2018 2:14 PM FINANCIAL ANALYSIS CONSULTANT Pulse 84 01/05/2018 2:14 PM FINANCIAL ANALYSIS CONSULTANT Temperature 36.9 C (98.5 F) 01/05/2018 2:14 PM FINANCIAL ANALYSIS CONSULTANT Respiratory Rate 18 01/05/2018 2:14 PM FINANCIAL ANALYSIS CONSULTANT Oxygen Saturation 92% 01/05/2018 2:14 PM FINANCIAL ANALYSIS CONSULTANT Inhaled Oxygen Concentration - - Weight 117.9 kg (260 lb) 01/05/2018 2:14 PM FINANCIAL ANALYSIS CONSULTANT Height 176.5 cm (5' 9.5 ) 01/05/2018 2:14 PM FINANCIAL ANALYSIS CONSULTANT Body Mass Index 37.84 01/05/2018 2:14 PM FINANCIAL ANALYSIS CONSULTANT Plan of Treatment Health Maintenance Due Date Last Done Comments Hepatitis C Virus (HCV) Screening 1980 TdaP Immunization 1980 Hepatitis B Immunization (1 of 3 - 19+ 3-dose series) 1999 Influenza Immunization (#1) 2024 SARS-COV-2 Immunization ( - season) 2024 Respiratory Syncytial Virus (RSV) Immunization (Adult) (1 - 1-dose 75+ series) 2055 Meningococcal Immunization (ACWY) Aged Out No longer eligible based on patient's age to complete this topic Pneumococcal Immunization Combined Aged Out No longer eligible based on patient's age to complete this topic Rotavirus Immunization Aged Out No lo nger eligible based on patient's age to complete this topic Care Teams Pipe Supervisor Relationship Specialty Start Date End Date Bret Parrish PAC [address] [place] [address] PCP - General Physician Headstart Teacher 02/19/16
--- OUTSIDE RECORDS SUMMARY | 2025-01-19 00:14 | XMS_ITS | Encounter Summary ---
Author Organization [facility] Address [facility] [place] [address] Care Team Providers Care Pyrometallurgical Engineer Name Role Phone Bret Parrish Primary Care Provider [phone] Encounter Details Date Type Department Care Team (Late st Contact Info) Description 05/05/2019 Abstract [facility] CONVERSION [address] [place] [address] , Generic Conversion, Social History Tobacco Use Types Packs/Day Years Used Date Smoking Tobacco: Never Assessed Sex and Gender Information Value Date Recorded Sex Assigned at Not on file Legal Sex Male 8:25 PM CDT Gender Identity Not on file Sexual Orientation Not on file documented as of this encounter Plan of Treatment Not on file documented as of this encounter Visit Diagnoses Not on filedocumented in this encounter Care Teams Pyrometallurgical Engineer Relationship Specialty Start Date End Date Bret Parrish PA [address] [place] [address] PCP - General PHYSICIAN PROCUREMENT INSPECTOR 03/30/21 documented as of this encounter
--- OUTSIDE RECORDS SUMMARY | 2025-01-19 00:15 | XMS_ITS | Referral Summary ---
Author Organization [facility] Address [address] [place] [address] Care Team Providers Care Seal Skinner Name Role Phone Bret Parrish Primary Care Provider [phone] Allergies Active Allergy Reactions Criticality Noted Date Comments Iodinated Contrast Media Itching Low 12/14/2017 Medications atenolol (TENORMIN) 50 mg tablet take 1 tablet by oral route every day 0 0 03/26/20 16 Active traMADol (ULTRAM) 50 mg tablet take 1 tablet by oral route every 6 hours as needed 0 0 03/26/20 16 Active gemfibrozil (LOPID) 600 mg tablet 02/13/20 16 Active traMADol (ULTRAM) 50 mg tablet 03/02/20 16 Active metoprolol (LOPRESSOR) 50 mg tablet Take 50 mg by mouth daily. Active omeprazole (PriLOSEC) 20 mg capsule Take 20 mg by mouth 2 (two) times a day. Active testosterone cypionate (DEPO-TESTOTERONE) 100 mg/mL injection Inject 100 mg into the shoulder, thigh, or buttocks every 14 (fourteen) days. Active ciprofloxacin (CIPRO) 500 mg tablet Take 1 tablet (500 mg total) by mouth 2 (two) times a day. 14 tablet 04/08/20 18 Active Additional Information Patient not taking.Reported on 10/11/2019 valsartan (DIOVAN) 160 mg tablet TAKE 1 TABLET BY MOUTH ONCE DAILY FOR 30 DAYS 0 09/25/20 19 Active nortriptyline (PAMELOR) 25 mg capsule Take 1 capsule (25 mg total) by mouth nightly 30 capsule 2 10/11/20 19 Active baclofen (LIORESAL) 10 mg tabletIndications:Mu scle Spasticity of Spinal Origin Take 1 tablet (10 mg total) by mouth 3 (three) times a day 90 tablet 08/25/20 20 Active benzonatate (TESSALON) 100 mg capsuleIndications:C ough Take 1 capsule (100 mg total) by mouth 3 (three) times a day as needed for cough 15 capsule 09/01/20 21 Active Additional Information Patient not taking.Reported on 09/29/2021 fenofibrate nanocrystallized (TRIGLIDE) 160 mg tablet 160 mg daily Active Active Problems Problem Noted Date Diagnosed Date Calculus of gallbladder with out cholecystitis without obstruction 10/08/2021 Assessment & Plan (10/08/2021 10:17 AM VIDEO EFFECTS EDITOR): He has abnormal imaging, however his symptoms do not appear to be caused from gallstones. We discussed the symptoms to watch for related to gallstones. This could possibly be from a muscular strain type issue. He also states having covid recently in which he had several coughing fits, which could relate to his right upper chest/abd pain. Continue to monitor, avoid aggravating activities. Notify office if gallstone symptoms occur. Black stools 10/11/2019 Overview (10/11/2019): Added automatically from request for surgery [id number] Assessment & Plan (10/18/2019 4:43 PM VIDEO EFFECTS EDITOR): Possible melena. Will schedule EGD for further evaluation. Continue omeprazole. Abdominal pain 10/11/2019 Overview (10/11/2019): Added automatically from request for surgery [id number] Assessment & Plan (10/18/2019 4:44 PM VIDEO EFFECTS EDITOR): Etiology is not clear. Recent CT scan in August was normal. Will start nortriptyline 25 mg at night. Possible functional pain. Colonoscopy in 2016 was normal. Will re-evaluate in the next visit in 1 month. Gastroesophageal reflux disease without esophagi tis 04/10/2018 Assessment & Plan (04/10/2018 8:36 AM CDT): Patient is exhibiting signs and symptoms consistent with poorly controlled gastroesophageal reflux disease. Patient will be placed on omeprazole 40 mg Q morning 30 min prior to meal and ranitidine 300 mg q.h.s.. Patient will require a barium swallow esophagram to look for any intrinsic pathology that may be causing this patient's symptoms. Patient may also require a dual channel pH probe to further workup this condition. Patient was also provided with educational material pertaining to reflux precautions and lifestyle changes. Patient was provided with educational material regarding reflux precautions. Patient was instructed to refrain from eating a meal approximately 3 hours prior to bedtime. Patient was instructed to elevate the head of the bed by approximately 8 inches. Patient was to refrain from consuming spicy greasy fatty foods, dairy products, and excessive caffeine use. Patient was also advised to increase water consumption. Patient was also instructed on weight reduction and exercise regimen. Patient was also instructed on the importance of compliance with medications. Obstructive sleep apnea 04/10/2018 Assessment & Plan (04/10/2018 8:37 AM CDT): Patient currently is treating his obstructive sleep apnea with CPAP device. 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 No signs of infection. Educated patient on signs of infection. Encouraged ambulation to increase circulation. Will see at scheduled follow up next week. Immunizations Immunization Administration Dates Next Due Tdap 07/31/2024 Social History Tobacco Use Types Packs/Day Years Used Date Smoking Tobacco: Every Day Cigarettes Smokeless Tobacco: Never Tobacco Cessation:Ready to Q uit: No; Counseling Given: No Alcohol Use Standard Drinks/Week Comments No 0 (1 standard drink = 0.6 oz pur e alcohol) Personal Safety Answer Date Recorded Have you ever been in or are you currently in a harmful physical or emotional relationship or is someone making you feel afraid or unsafe? Denies 07/31/2024 Sex and Gender Information Value Date Recorded Sex Assigned at Not on file Legal Sex Male 7:06 PM VIDEO EFFECTS EDITOR Gender Identity Not on file Sexual Orientation Not on file Last Filed Vital Signs Vital Sign Reading Time Taken Comments Blood Pressure 127/83 08/01/2024 1:30 AM CDT Pulse 78 08/01/2024 2:00 AM CDT Temperature 37.1 C (98.8 F) 07/31/2024 4:50 PM CDT Respiratory Rate 18 08/01/2024 2:00 AM CDT Oxygen Saturation 92% 08/01/2024 2:00 AM CDT Inhaled Oxygen Concentration - - Weight 113.4 kg (250 lb) 07/31/2024 5:59 PM CDT Height 180.3 cm (5' 11 ) 07/31/2024 5:03 PM CDT Body Mass Index 34.87 07/31/2024 5:03 PM CDT Plan of Treatment Not on file Insurance [facility] CHOICE PLUS [facility] HMO/PPO Address: [address] [address] [place] [address] [employer] [place] [facility] Care Teams Seal Skinner Relationship Specialty Start Date End Date Bret Parrish PA [address] [place] [address] PCP - General 03/26/16
--- OUTSIDE RECORDS SUMMARY | 2025-01-19 00:15 | XMS_ITS ---
Author Organization [facility] Address [address] [place] [address] Care Team Providers Care Lever Operator Name Role Phone Bret Parrish Primary Care Provider [phone] Active Problems Problem Noted Date Diagnosed Date Calculus of gallbladder with out cholecystitis without obstruction 10/08/2021 Assessment & Plan (10/08/2021 10:17 AM HAND MARKER): He has abnormal imaging, however his symptoms [...] (10/11/2019): Added automatically from request for surgery [id number] Assessment & Plan (10/18/2019 4:43 PM HAND MARKER): Possible melena. Will schedule EGD for further evaluation. Continue omeprazole. Abdominal pain 10/11/2019 Overview (10/11/2019): Added automatically from request for surgery [id number] Assessment & Plan (10/18/2019 4:44 PM HAND MARKER): Etiology is not clear. Recent CT scan [...] 10/12/2017 Assessment & Plan (10/12/2017 1:57 PM HAND MARKER): Seroma. No signs of infection. Educated patient on signs of infection. Encouraged ambulation to increase circulation. Will see at scheduled follow up next week. Current Treatment and Therapy Plans No current plan information found. Past Treatment and Therapy Plans No past plan information found. Lifetime Dose Tracking * Chemical Lifetime Dose Automatic Entry Manual Entr y DLP 6,111 mGycm 6,111 mGycm 0 mGycm
--- OUTSIDE RECORDS SUMMARY | 2025-01-19 00:15 | XMS_ITS | Clinical Summary ---
Author Organization [facility] Address [address] [place] [address] Care Team Providers Care Fire Range Technician Name Role Phone Bret Parrish Primary Care Provider [phone] Allergies Active Allergy Reactions Criticality Noted Date [...] 10/08/2021 Assessment & Plan (10/08/2021 10:17 AM STORE CUSTODIAN): He has abnormal imaging, however his symptoms [...] (10/11/2019): Added automatically from request for surgery [id number] Assessment & Plan (10/18/2019 4:43 PM STORE CUSTODIAN): Possible melena. Will schedule EGD for further evaluation. Continue omeprazole. Abdominal pain 10/11/2019 Overview (10/11/2019): Added automatically from request for surgery [id number] Assessment & Plan (10/18/2019 4:44 PM STORE CUSTODIAN): Etiology is not clear. Recent CT scan [...] 10/12/2017 Assessment & Plan (10/12/2017 1:57 PM STORE CUSTODIAN): Seroma. No signs of infection. Educated patient on signs of infection. Encouraged ambulation to increase circulation. Will see at scheduled follow up next week. 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 (HCC) Family History Medical History Relation Name Comments Heart disease Father Hypertension Father Hypertension; Breast cancer Maternal Grandmother Cancer Maternal Grandmother Hypertension Maternal Grandmother Hyperte nsion; Stroke Maternal Grandmother Stroke; Diabetes Mother Diabetes mellit us; Hypertension Mother Hypertension; Breast cancer Mother's Sister Cancer Mother's Sister Heart disease Other 1 Family history of Heart disease; Cancer Other 2 Family history of Cancer, unknown; Lung disease Other 3 Family history of Lung disease; Other Other 4 Family history of Diabetes mellitus type 1; Hypertension Other 5 Family history of Hypertension; Arthritis Other 6 Family history of Arthritis; Kidney disease Other 7 Family histor y of kidney disease; Cancer Paternal Grandfather Prostate cancer Paternal Grandfather Hypertension Paternal Grandmother Hyperte nsion; Stroke Paternal Grandmother Stroke; Relation Name Status Comments Father Alive Maternal Grandmother Mother Alive Mother's Sister Alive Other 1 Other 2 Other 3 Other 4 Other 5 Other 6 Other 7 Paternal Grandfather Paternal Grandmother Social History Tobacco Use Types Packs/Day Years [...] on file Legal Sex Male 7:06 PM STORE CUSTODIAN Gender Identity Not on file Sexual Orientation Not on file Obstetrics History Last Filed Vital Signs Vital Sign Reading [...] 07/31/2024 5:03 PM CDT Plan of Treatment Health Maintenance Due Date Last Done Comments Depression Screening 1980 Hepatitis C Screening 1980 Varicella Vaccines (1 of 2 - 13+ 2-dose series) 1993 Hepatitis B Screening 1998 Regular Well Visit/Exam 18-64 1998 Pneumococcal vaccine <65 (1 of 2 - PCV) 1999 Zoster Vaccine (1 of 2) 1999 Influenza Vaccine (#1) 2024 DTaP/Tdap/Td Vaccine (2 - Td or Tdap) 07/31/2034 07/31/2024 HPV Vaccines Aged Out No longer eligi ble based on patient's age to complete this topic Insurance [facility]O Address: [address] [address] [place] [address] [employer] [place] [facility] Care Teams Fire Range Technician Relationship Specialty Start Date End Date Bret Parrish PA [address] [place] [address] PCP - General 03/26/16
--- NOTE | 2025-01-19 00:17 | ED.EAR ---
HPI - Ear Problem General Chief complaint: Ear Stated complaint: L Ear Pain Time Seen by Provider: 01/19/25 00:17 Source: patient Mode of arrival: ambulatory Limitations: no limitations History of Present Illness HPI Narrative: Patient is a 44-year-old male with left ear pain for the past 2 days. He is here tonight with significant pain in the left ear and radiating down the left anterior neck. MD Complaint: ear pain Location: left ear Duration: constant Severity: moderate Relieving factors: nothing Exacerbating factors: chewing, position of head and palpation Context: Reports recent illness ( viral syndrome this past week with exposure to influenza a; patient has been sick for a week and now having left ear pain; patient here for left ear pain) Discharge from ear: Reports no Associated symptoms ear: ear swelling ( left) and neck pain ( left anterior) Treatment prior to arrival: none Related Data Home Medications ?Medication ?Instructions ?Recorded ?Confirmed ?Last Taken ?Type atenolol 50 mg tablet 100 mg PO DAILY 03/22/20 10/27/24 08/05/21 History valsartan 160 mg tablet 160 mg PO DAILY 03/22/20 10/27/24 Unknown History tramadol 50 mg tablet 50 mg PO TID PRN Pain 05/29/20 10/27/24 Unknown History baclofen 10 mg tablet 10 mg PO TID 11/08/22 10/27/24 Unknown History Allergies Allergy/AdvReac Type Severity Reaction Status Date / Time iohexol (From contrast - CT, Allergy Itching Verified 09/11/24 08:09 X-RAY) Review of Systems Review of Systems: All systems reviewed & are unremarkable except as noted in HPI and below Constitutional: Constitutional: Reports no additional constitutional complaints Eyes: Eyes: Reports no additional eye complaints ENT: Reports system reviewed and no additional complaints, except as documented Cardiovascular: Cardiovascular: Reports no additional cardiovascular complaints Respiratory: Respiratory: Reports no additional respiratory complaints Gastrointestinal: Gastrointestinal: Reports no additional gastrointestinal complaints Genitourinary: Genitourinary: Reports no additional male genitourinary complaints Musculoskeletal: Musculoskeletal: Reports no additional musculoskeletal complaints Integumentary/Breasts: Skin/Breast: Reports system reviewed and no additional complaints, except as docu Neurologic: Reports system reviewed and no additional complaints, except as documented Psychiatric: Psychiatric: Reports no additional psychiatric complaints Endocrine: Endocrine: Reports no additional endocrine complaints Hematologic/Lymphatic: Hematologic/Lymphatic: Reports no additional hematologic/lymphatic complaints Allergic/Immunologic: Allergic/Immunologic: Reports no additional allergic/immunologic complaints [facility] Past Medical History Medical History Eustachian tube dysfunction GERD (gastroesophageal reflux disease) Hodgkin's lymphoma Lumbar back pain Hypertension Diverticulitis Family History Family History Father FH: CABG (coronary artery bypass surgery) Social History Social History Smoking packs per day: 0.5 Smoking cigarettes per day: 10.0 Years smoked: 20 Smoking pack-years: 10.00 Smoking status: Current every day smoker Tobacco type: cigarettes Alcohol intake: never Substance use: never Lack of Transportation: No Lack of Food: Never True Current Housing: I Have Housing Concerned About Future Housing: No Difficulty Paying Gas/Electric Bills: No Difficulty Paying for Meds: No Currently Unemployed: No Education: Grade School Difficulty w/ Childcare or Family Care: No Spiritual care concerns: No Exam Const: General: ill appearing Nutritional Appearance: well nourished Orientation/consciousness: patient oriented x3 Limitations: no limitations HENMT: Head: normal to inspection Ears: external ears normal Face/Nose/Sinus: Normal external nose present Other: left ear canal is red and inflamed and irritated; right ear is normal to examination; tympanic membrane bilateral is normal Eyes: Conjunctivae: conjunctivae normal Pupils: Equal, round and reactive pupils present EOM: EOMs intact bilaterally Neck: Neck: normal visual inspection Chest: Chest palpation & inspection: normal inspection of the chest Resp: Effort & Inspection: normal respiratory effort and not labored Auscultation: clear to auscultation bilaterally and no crackles Cardio: Rate: regular rate Rhythm: regular rhythm Heart sounds: no murmurs GI: Inspection: non-distended Auscultation: normal bowel sounds : General: Yes bladder normal to palpation Back/Spine/Pelvis: Back: no CVA tenderness Skin: General skin exam: normal color Rashes: no rashes Wounds: no wounds Neuro: General: patient oriented x3 Cranial nerves: Yes Nystagmus not present Speech: normal speech Extrem: General: normal to inspection Psych: Mental Status: mental status grossly normal Affect: normal affect Attitude: cooperative Medical Decision Making MDM Narrative Medical decision making narrative: patient is a 44-year-old male with a left ear pain. We will do Cortisporin ear drops and ibuprofen 800 as the patient drove and cannot give stronger pain control at this time. We can send him home with stronger pain control for tomorrow. Discharge Plan Discharge Clinical Impression: Otitis externa Qualifiers: Otitis externa type: diffuse Chronicity: acute Laterality: left Qualified Code(s): H60.312 - Diffuse otitis externa, left ear Patient Disposition: Home, Self-Care Condition: Stable Instructions: Antibiotic Form, Swimmer's Ear (ED) Additional Instructions: Please follow-up with the primary doctor in the next week. I have added ear drops and pain control and oral antibiotics. If continued pain in the morning start the oral antibiotics along with the other 2 medicine. Patient Language: Indonesian Prescriptions: New kbwwhsok-purpzrlsn-YM 3.5-10,000-1 mg/mL-unit/mL-% drops,suspension 3 drp LEFT EAR TID 7 Days Qty: 10 0RF amoxicillin-pot clavulanate [Augmentin] 500-125 mg tablet 1 tablet PO BID 10 Days Qty: 20 0RF hydrocodone-acetaminophen 5-325 mg tablet 1 tablet PO Q8H PRN (Reason: pain) Qty: 10 0RF No Action atenolol 50 mg tablet 100 mg PO DAILY valsartan 160 mg tablet 160 mg PO DAILY tramadol 50 mg tablet 50 mg PO TID PRN (Reason: Pain) baclofen 10 mg tablet 10 mg PO TID Follow-up/Referrals: Francois,LIBBY Almeida [Primary Care Provider] - Time of Disposition: 00:50
--- OUTSIDE RECORDS SUMMARY | 2025-01-19 00:34 | XMS_ITS | Data Portability ---
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 Plan of Treatment Reminders Order Date Submit Date Provider Last Modified By Organization Details Last Modified Time Details Appointments None recorded. Lab CBC 2023 024 [facility], [address] [place] [address], [facility], [place], [address], 4 09:15:16 CMP, serum or plasma 2023 024 [facility], [address] [place] [address], [facility], [place], [address], 4 09:15:14 lipid panel, serum 2023 024 [facility], [address] [facility], [facility], [place], [address], 4 09:15:14 HbA1c (hemoglobi n A1c), blood 2023 024 [facility] In-Office Order, Internal Use Only DO Not Attach Compendium DO Not Attach Compendium, Do Not Delete/merge, [id number] 4 11:32:49 Referral gastroente rologist referral 2023 024 husam Suazo Dnp [employer] [employer], [address] [place] [address], [address], 4 09:06:15 Procedures None recorded. Surgeries None recorded. Imaging MRI, lumbar spine, w/o contrast - [place] [facility] [address] [facility] , [place], [address], 4 09:45:23 Medication Orders tramadol 50 mg tablet 2023 024 [facility], [address] [place], [address], 4 15:43:36 tramadol 50 mg tablet 2023 024 [facility], [address] [place], [address], 4 18:58:49 tramadol 50 mg tablet 2022 023 [id number], [address] [place], [address], 3 15:23:44 fenofibrat e 160 mg tablet 2022 024 [facility] #[id number], [address] [place], [address], 4 10:56:41 atenolol 100 mg tablet 2022 023 [facility] #[id number], [address] [place], [address], 3 15:23:30 valsartan 160 mg tablet 2022 023 [facility] #[id number], [address] [place], [address], 3 15:23:29 Patient TargetsNo targets recorded. Patient Instructions Encounter Date Encounter Id Patient Instructions Last Modified By Organization Details Last Modified Time 10/18/2023 [id number] A healthy lifestyle: care instructions jnanney Not available 10/18/2023 15:14:08 learning about high blood pressure jnanney Not available 10/18/2023 15:14:08 01/12/2024 [id number] A healthy lifestyle: care instructions jnanney Not available 01/12/2024 11:15:09 learning about high blood pressure jnanney Not available 01/12/2024 11:15:09 04/24/2024 [id number] A healthy lifestyle: care instructions jnanney Not available 04/24/2024 18:56:38 learning about high blood pressure jnanney Not available 04/24/2024 18:56:38 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: care instructions jnanney Not available 04/24/2024 18:56:38 learning about diverticulosis and 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 jnanney Not available 04/24/2024 18:56:38 08/02/2024 [id number] A healthy lifestyle: care instructions jnanney Not available 08/02/2024 15:40:30 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 History of 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 Referring Physician: Hillary Parrish, Family Medicine, Encounter Date: 01/12/2024 Results Created Date Observation Date Name Description Value Unit Range Abnormal Flag Note LastModifiedBy Organization Detail LastModifiedTime 01/12/20 24 01/13/2024 LIPID PANEL cholesterol, total 186 mg/dL 100-19 9 Not Available [address], [address], 01/13/2024 09:15:14 01/12/20 24 01/13/2024 LIPID PANEL triglyceride s 256 mg/dL 0-149 above high normal Not Available [address] [place], [address], 01/13/2024 09:15:14 01/12/20 24 01/13/2024 LIPID PANEL HDL cholesterol 36 mg/dL >39 below low normal Not Available [facility] [address] [place], [address], 01/13/2024 09:15:14 01/12/20 24 01/13/2024 LIPID PANEL VLDL cholesterol kori 44 mg/dL 5-40 above high normal Not Available [facility] [address] [place] [address], [address], 01/13/2024 09:15:14 01/12/20 24 01/13/2024 LIPID PANEL LDL chol calc ([facility]) 106 mg/dL 0-99 above high normal Not Available [address], [address], 01/13/2024 09:15:14 01/12/20 24 01/13/2024 COMP. METAB OLIC PANEL (14) glucose 103 mg/dL 70-99 above high normal Not Available [address], [address], 01/13/2024 09:15:14 01/12/20 24 01/13/2024 COMP. METAB OLIC PANEL (14) BUN 11 mg/dL 6-24 Not Available [address], [address], 01/13/2024 09:15:14 01/12/20 24 01/13/2024 COMP. METAB OLIC PANEL (14) creatinine 0.96 mg/dL 0.76-1 .27 Not Available [address], [address], 01/13/2024 09:15:14 01/12/20 24 01/13/2024 COMP. METAB OLIC PANEL (14) eGFR 101 mL/mi n/1.7 3 >59 Not Available [address], [address], 01/13/2024 09:15:14 01/12/20 24 01/13/2024 COMP. METAB OLIC PANEL (14) BUN/creatini ne ratio 11 9-20 Not Available [address], [address], 01/13/2024 09:15:14 01/12/20 24 01/13/2024 COMP. METAB OLIC PANEL (14) sodium 139 mmol/ L 134-14 4 Not Available [address], [address], 01/13/2024 09:15:14 01/12/20 24 01/13/2024 COMP. METAB OLIC PANEL (14) potassium 4.6 mmol/ L 3.5-5. 2 Not Available [address], [address], 01/13/2024 09:15:14 01/12/20 24 01/13/2024 COMP. METAB OLIC PANEL (14) chloride 103 mmol/ L 96-106 Not Available [address], [address], 01/13/2024 09:15:14 01/12/20 24 01/13/2024 COMP. METAB OLIC PANEL (14) carbon dioxide, total 22 mmol/ L 20-29 Not Available [address], [address], 01/13/2024 09:15:14 01/12/20 24 01/13/2024 COMP. METAB OLIC PANEL (14) calcium 9.8 mg/dL 8.7-10 .2 Not Available [address], [address], 01/13/2024 09:15:14 01/12/20 24 01/13/2024 COMP. METAB OLIC PANEL (14) protein, total 6.8 g/dL 6.0-8. 5 Not Available [address], [address], 01/13/2024 09:15:14 01/12/20 24 01/13/2024 COMP. METAB OLIC PANEL (14) albumin 4.3 g/dL 4.1-5. 1 Not Available [address], [address], 01/13/2024 09:15:14 01/12/20 24 01/13/2024 COMP. METAB OLIC PANEL (14) globulin, total 2.5 g/dL 1.5-4. 5 Not Available [address], [address], 01/13/2024 09:15:14 01/12/20 24 01/13/2024 COMP. METAB OLIC PANEL (14) A/G ratio 1.7 1.2-2. 2 Not Available [address], [address], 01/13/2024 09:15:14 01/12/20 24 01/13/2024 COMP. METAB OLIC PANEL (14) bilirubin, total <0.2 mg/dL 0.0-1. 2 Not Available [address], [address], 01/13/2024 09:15:14 01/12/20 24 01/13/2024 COMP. METAB OLIC PANEL (14) alkaline phosphatase 82 IU/L 44-121 Not Available [address], [address], 01/13/2024 09:15:14 01/12/20 24 01/13/2024 COMP. METAB OLIC PANEL (14) AST (SGOT) 15 IU/L 0-40 Not Available [address], [address], 01/13/2024 09:15:14 01/12/20 24 01/13/2024 COMP. METAB OLIC PANEL (14) ALT (SGPT) 15 IU/L 0-44 Not Available [address], [address], 01/13/2024 09:15:14 01/12/20 24 01/13/2024 CARDI OVASC ULAR REPOR T interpretati on Note Suppl thomas perez t is avail able. Not Available [address], [address], 01/13/2024 09:15:15 01/12/20 24 01/13/2024 CARDI OVASC ULAR REPOR T pdf . Not Available [address], [address], 01/13/2024 09:15:15 01/12/2001/13/2024 CBC, PLATE LET, NO DIFFE RENTI AL WBC 6.4 x10e3 /uL 3.4-10 .8 Not Available [address], [address], 01/13/2024 09:15:15 01/12/20 24 01/13/2024 CBC, PLATE LET, NO DIFFE RENTI AL RBC 5.71 x10e6 /uL 4.14-5 .80 Not Available [address], [address], 01/13/2024 09:15:15 01/12/20 24 01/13/2024 CBC, PLATE LET, NO DIFFE RENTI AL hemoglobin 15.6 g/dL 13.0-1 7.7 Not Available [address], [address], 01/13/2024 09:15:15 01/12/2001/13/2024 CBC, PLATE LET, NO DIFFE RENTI AL hematocrit 47.8 % 37.5-5 1.0 Not Available [address], [address], 01/13/2024 09:15:15 01/12/20 24 01/13/2024 CBC, PLATE LET, NO DIFFE RENTI AL MCV 84 fL 79-97 Not Available [facility] & [address], [address], 01/13/2024 09:15:15 01/12/20 24 01/13/2024 CBC, PLATE LET, NO DIFFE RENTI AL MCH 27.3 pg 26.6-3 3.0 Not Available [address], [address], 01/13/2024 09:15:15 01/12/20 24 01/13/2024 CBC, PLATE LET, NO DIFFE RENTI AL MCHC 32.6 g/dL 31.5-3 5.7 Not Available [address], [address], 01/13/2024 09:15:15 01/12/20 24 01/13/2024 CBC, PLATE LET, NO DIFFE RENTI AL RDW 13.3 % 11.6-1 5.4 Not Available [address], [address], 01/13/2024 09:15:15 01/12/20 24 01/13/2024 CBC, PLATE LET, NO DIFFE RENTI AL platelets 381 x10e3 /uL 150-45 0 Not Available [address], [address], 01/13/2024 09:15:15 01/12/20 24 01/12/2024 HbA1c (hemo globi n A1c), blood HbA1c 6.3 Not Available In-Office Order Internal Use Only DO Not Attach Compendium DO Not Attach Compendium, Do Not Delete/merge, [id number] 01/12/2024 11:15:25 11/08/20 23 11/08/2023 XR, chest No observ ation record ed. [facility] [address] [place], [address], 11/08/2023 19:00:37 03/11/20 24 03/11/2024 CT, abdom en + pelvi s, w/o contr ast No observ ation record ed. [facility] [address] [place], [address], 03/12/2024 10:40:12 09/11/20 24 09/11/2024 CT, lumba r spine , w/o contr ast No observ ation record ed. [facility] [address] [place], [address], 09/11/2024 10:21:43 Result Notes None recorded. 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 Not Available [facility] 1 11:59:24 Obstructive sleep apnea syndrome 33616924 Active 2017 MADELIN [place], [place] [facility] 15:04:13 Gastroesophag eal reflux disease without esophagitis 383621175 Active 2017 MADELIN [place] [facility] 15:04:13 Rosacea 556818190 Active MADELIN [place] [facility] 15:04:12 Drag-to gait 61116927 Active MADELIN [place] [facility] 15:04:13 Essential hypertension 34302729 Active MADELIN [place] [facility] 15:04:12 Lumbar radiculopathy 777260480 Active MADELIN [place] [facility] 15:04:13 Pruritic disorder 112614077 Active MADELIN [place] [facility] 15:04:13 Diverticuliti s 520145979 Active Brenda Madison [place], [place] [facility] 15:04:13 Knee pain Active Brenda [place] [facility] 15:04:13 Fatigue 88622373 Active Brenda [place] [facility] 15:04:13 Hypertriglyce ridemia 011028212 Active Brenda [place] [facility] 15:04:13 Hypogonadism 26460059 Active Brenda [place] [facility] 15:04:13 Multiple joint pain 48803269 Active Brenda [place] [facility] 15:04:13 Anxiety 09614888 Active Brenda [place] [facility] 15:04:13 Tachycardia 3835429 Active Brenda [place] [facility] 15:04:13 Problem Notes None recorded. Procedures Surgical History None recorded. Imaging Results Imaging Date Name Status LastModified by Organiz ation Details LastModified Time 11/08/2023 XR, chest completed [facility] [address] [place], [address], 11/08/2023 19:00:37 03/11/2024 CT, abdomen + pelvis, w/o contrast completed [facility] [address] [place], [address], 03/12/2024 10:40:12 09/11/2024 CT, lumbar spine, w/o contrast completed [facility] [address] [place], [address], 09/11/2024 10:21:43 Procedure Notes None recorded. Medical Equipment None Reported. Allergies Allergen ID Allergen Name Allergen Category Reaction Reaction Severity Criticality Documentation Date Start Date Code Code System Note Provider Name and Address Organization Details Recorded Time 810373 Iodinated contrast media (substanc e) medicatio n Not available Not available Not available 04/11/2018 63124 2004 SNOMED Not Available Not Available Not Available Medications Name Sig Start Date Stop Date Status Note LastModified by Organization Details LastModified Time celecoxib 200 mg capsule Take 1 capsule every day by oral route for 90 days. 10/18 completed Not Available Not Available Not Available cyclobenzap rine 10 mg tablet TAKE 1 TABLET BY MOUTH THREE TIMES DAILY active Not Available Not Available No t Available gabapentin 600 mg tablet Take 1 tablet 3 times a day by oral route for 30 days. 02/22 completed Not Available Not Available Not Available clindamycin HCl 300 mg capsule TAKE 1 CAPSULE BY MOUTH EVERY 6 HOURS 09/17 completed Not Available Not Available Not Available azithromyci n 250 mg tablet TAKE 2 TABLETS (500 MG) BY ORAL ROUTE ONCE DAILY FOR 1 DAY THEN 1 TABLET (250 MG) BY ORAL ROUTE ONCE DAILY FOR 4 DAYS 10/18 completed Not Available Not Available Not Available metoprolol succinate ER 50 mg tablet,exte nded release 24 hr TAKE ONE TABLET BY MOUTH ONCE DAILY FOR 90 DAYS. 09/11 completed Not Available Not Available Not Available atenolol 100 mg tablet TAKE 1 TABLET BY MOUTH EVERY DAY active Not Available Not Available No t Available hydrocodone 5 mg-acetamin ophen 325 mg tablet 09/17 completed Not Available Not Available Not Available meloxicam 15 mg tablet TAKE 1 TABLET BY MOUTH EVERY DAY NEEDED 09/17 completed Not Available Not Available Not Available Medrol (George) 4 mg tablets in a dose pack Take 1 dose pk by oral route as directed. 10/05 completed Not Available Not Available Not Available testosteron e cypionate 100 mg/mL intramuscul ar oil Inject 100 mg by intramusc . route. 09/17 completed Not Available Not Available Not Available Viagra 50 mg tablet Take 1 tablet as needed by oral route. 07/16 completed Not Available Not Available Not Available metronidazo le 500 mg tablet TAKE 1 TABLET BY MOUTH EVERY 8 HOURS FOR 10 DAYS 08/22 completed Not Available Not Available Not Available amlodipine 5 mg tablet Take 1 tablet every day by oral route for 30 days. 12/01 completed Not Available Not Available Not Available ciprofloxac in 500 mg tablet TAKE 1 TABLET BY MOUTH EVERY 12 HOURS FOR 10 DAYS 08/22 completed Not Available Not Available Not Available hydrocodone 10 mg-acetamin ophen 325 mg tablet 10/18 completed Not Available Not Available Not Available peg-electro lyte solution 420 gram oral solution 08/08 completed Not Available Not Available Not Available omeprazole 40 mg capsule,del ayed release TAKE ONE CAPSULE BY MOUTH DAILY 07/16 completed Not Available Not Available Not Available tramadol 50 mg tablet TAKE 1 TABLET BY MOUTH THREE TIMES DAILY active Not Available Not Available No t Available ketorolac 10 mg tablet 05/26 completed Not Available Not Available Not Available nortriptyli ne 25 mg capsule TAKE 1 CAPSULE BY MOUTH EVERYDAY AT BEDTIME active Not Available Not Available No t Available verapamil 120 mg tablet Take by oral route. 07/16 completed Not Available Not Available Not Available bupropion HCl 100 mg tablet Take 1 tablet twice a day by oral route for 30 days. 07/16 completed Not Available Not Available Not Available citalopram 20 mg tablet Take 1 tablet every day by oral route for 30 days. 09/11 completed Not Available Not Available Not Available Monoject 3cc Syringe 3 mL 25 gauge x 1 use 1 syringe for injection every 2 weeks 09/11 completed Not Available Not Available Not Available Lidoderm 5 % topical patch APPLY 1 PATCH BY TRANSDERM AL ROUTE ONCE DAILY (MAY WEAR UP TO 12HOURS.) 02/22 completed Not Available Not Available Not Available gabapentin 800 mg tablet Take 1 tablet 3 times a day by oral route for 30 days. 09/11 completed Not Available Not Available Not Available baclofen 10 mg tablet TAKE 1 TABLET BY MOUTH THREE TIMES DAILY active Not Available Not Available No t Available benzonatate 100 mg capsule 09/17 completed Not Available Not Available Not Available gemfibrozil 600 mg tablet Take 1 tablet twice a day by oral route for 30 days. 09/11 completed Not Available Not Available Not Available pantoprazol e 40 mg tablet,max yed release TAKE 1 TABLET BY MOUTH ONCE DAILY IN THE MORNING FOR 4 WEEKS 01/11 completed Not Available Not Available Not Available prednisone 50 mg tablet TAKE 1 TABLET BY MOUTH 13 HOURS PRIOR, THEN 7 HOURS PRIOR, AND THEN [address] SCAN. 04/24 completed Not Available Not Available Not Available Syringe 3cc 22 gauge x 3/4 use one syringe for injection every two weeks 09/11 completed Not Available Not Available Not Available metoprolol tartrate 50 mg tablet Take 50 mg by oral route. 09/17 completed Not Available Not Available Not Available gabapentin 300 mg capsule Take 1 capsule twice a day by oral route for 30 days. 09/17 completed Not Available Not Available Not Available omeprazole 20 mg capsule,del ayed release 20 mg by oral route. active Not Available Not Available No t Available Pepcid 40 mg tablet 1 PO QHS 07/12 completed Not Available Not Available Not Available diclofenac sodium 75 mg tablet,max yed release TAKE ONE TABLET BY MOUTH TWICE DAILY 02/22 completed Not Available Not Available Not Available montelukast 10 mg tablet Take 1 tablet every day by oral route for 90 days. 07/16 completed Not Available Not Available Not Available hydroxyzine HCl 25 mg tablet Take 1 tablet 3 times a day by oral route for 30 days. 07/16 completed Not Available Not Available Not Available testosteron e cypionate 200 mg/mL intramuscul ar oil INJECT 1 ML(CC) INTRAMUSC ULARLY EVERY 2 WEEKS. 09/11 completed Not Available Not Available Not Available levofloxaci n 500 mg tablet TAKE 1 TABLET BY MOUTH ONCE DAILY FOR 8 DAYS 01/11 completed Not Available Not Available Not Available levofloxaci n 750 mg tablet TAKE 1 TABLET BY MOUTH ONCE DAILY 08/02 completed Not Available Not Available Not Available albuterol sulfate HFA 90 mcg/actuati on aerosol inhaler 2 puffs qid prn 06/15 completed Not Available Not Available Not Available ketorolac 60 mg/2 mL intramuscul ar solution Inject 2 mL by intramusc ular route. 02/22 completed Not Available Not Available Not Available BD Luer-Marco Syringe 3 mL 22 gauge x 1 USE ONE SYRINGE FOR INJECTION EVERY TWO WEEKS. 09/11 completed Not Available Not Available Not Available ondansetron 4 mg disintegrat ing tablet DISSOLVE 1 TABLET IN MOUTH EVERY 8 HOURS NEEDED FOR NAUSEA AND VOMITING 01/11 completed Not Available Not Available Not Available cefdinir 300 mg capsule Take 1 capsule every 12 hours by oral route. 10/18 completed Not Available Not Available Not Available fluoxetine 20 mg capsule Take 1 capsule every day by oral route for 30 days. 05/26 completed Not Available Not Available Not Available fluticasone propionate 50 mcg/actuati on nasal spray,suspe nsion [place] 2 sprays every day by intranasa l route. active Not Available Not Available No t Available atenolol 50 mg tablet TAKE 1 TABLET BY MOUTH ONCE DAILY 09/10 completed Not Available Not Available Not Available naproxen 500 mg tablet 1 BID 12/23 completed Not Available Not Available Not Available valsartan 160 mg tablet TAKE 1 TABLET BY MOUTH EVERY DAY active Not Available Not Available No t Available erythromyci n with ethanol 2 % topical gel 12/23 completed Not Available Not Available Not Available azithromyci n 500 mg tablet Take 1 tablet every day by oral route for 3 days. 10/05 completed Not Available Not Available Not Available tizanidine 4 mg capsule TAKE 1 CAPSULE BY MOUTH 3 TIMES A DAY OR JUST TAKE AT BEDTIME 06/17 completed Not Available Not Available Not Available fenofibrate 160 mg tablet TAKE 1 TABLET BY MOUTH EVERY DAY 01/12 completed Not Available Not Available Not Available Lyrica 150 mg capsule Take 1 capsule twice a day by oral route for 90 days. 02/22 completed Not Available Not Available Not Available Bystolic 10 mg tablet 12/23 completed Not Available Not Available Not Available Bystolic 5 mg tablet Take 1 tablet every day by oral route for 90 days. 2014 active Not Available Not Available Not Avai lable Rectiv 0.4 % (w/w) ointment 02/22 completed Not Available Not Available Not Available Vitals Date Recorded Body height Body mass index (BMI) Body weight Respiratory rate Heart rate Oxygen saturation Oxygen saturation in Arterial blood by Pulse oximetry Systolic blood pressure Diastolic blood pressure Provider Name and Address Organization Details Last Updated DateTime 3 180.34 cm 37.9 kg/m2 768784. 12 g 16 /min 92 /min 96 % 96 % 151 mm[Hg] 105 mm[Hg] Ananya Dimas MA [facility] 3 15:05:18 Date Recorded Body height Body mass index (BMI) Body weight Oxygen saturation Oxygen saturation in Arterial blood by Pulse oximetry Heart rate Systolic blood pressure Diastolic blood pressure Provider Name and Address Organization Details Last Updated DateTime 4 180.34 cm 36.7 kg/m2 489666. 79 g 97 % 97 % 68 /min 118 mm[Hg] 80 mm[Hg] Brenda Madison MA [facility] 4 10:59:03 Date Recorded Body height Body mass index (BMI) Body weight Oxygen saturation Oxygen saturation in Arterial blood by Pulse oximetry Heart rate Systolic blood pressure Diastolic blood pressure Provider Name and Address Organization Details Last Updated DateTime 4 180.34 cm 38.1 kg/m2 566628. 72 g 96 % 96 % 80 /min 140 mm[Hg] 100 mm[Hg] Ananya Dimas MA [facility] 4 18:45:45 Date Recorded Body height Body mass index (BMI) Body weight Oxygen saturation Oxygen saturation in Arterial blood by Pulse oximetry Heart rate Systolic blood pressure Diastolic blood pressure Provider Name and Address Organization Details Last Updated DateTime 4 180.34 cm 38.3 kg/m2 089677. 11 g 98 % 98 % 65 /min 121 mm[Hg] 82 mm[Hg] Ananya Dimas MA [facility] 4 15:23:55 Date Recorded Body height Body mass index (BMI) Body weight Oxygen saturation Oxygen saturation in Arterial blood by Pulse oximetry Heart rate Systolic blood pressure Diastolic blood pressure Provider Name and Address Organization Details Last Updated DateTime 4 175.9 cm 39.4 kg/m2 475928. 35 g 96 % 96 % 102 /min 140 mm[Hg] 92 mm[Hg] Ananya Dimas MA [facility] 4 14:37:19 Social History Question Answer Notes LastModified by Organizat ion Details LastModified Time Tobacco Smoking Status Current Every Day Smoker less than 1/2 pack Lula Khan MA [facility], [place] - [facility] 10/19/2022 11:55:26 What Is Your Level Of Alcohol Consumption? Occasional Rare Information not available 10/05/2022 Are You Blind Or Do You Have Difficulty Seeing? Yes Reading Glasses Information not available 10/05/2022 What Is Your Level Of Caffeine Consumption? Heavy Information not available 10/28/2020 How Much Tobacco Do You Chew? None Information not available 08/08/2020 In The 14 Days Before Symptom Onset, Have You Had Close Contact With A Laboratory-confi rmed COVID-19 While That Case Was Ill? No Information not available 09/17/2021 In The 14 Days Before Symptom Onset, Have You Had Close Contact With A Person Who Is Under Investigation For COVID-19 While That Person Was Ill? No Information not available 09/17/2021 Have You Been To An Area Known To Be High Risk For COVID-19? No Information not available 09/17/2021 Are You Currently Employed? Yes Information not available 05/26/2020 Are You Deaf Or Do You Have Serious Difficulty Hearing? No Information not available 10/05/2022 What Type Of Diet Are You Following? REGULAR Information not available 05/26/2020 Which Illicit Or Recreational Drugs Have You Used? None Information not available 05/26/2020 Do You Or Have You Ever Used E-cigarettes Or Vape? Never Used Electronic Cigarettes Information not available 09/11/2019 What Is Your Occupation? [employer] Information not available 01/11/2023 Live Alone Or With Others? With Others Information not available 08/08/2020 What Was The Date Of Your Most Recent Tobacco Screening? 08/22/2024 Information not available 08/22/2024 Do You Have Any Pets? Yes Information not available 10/19/2022 What Is Your Relationship Status? Single Information not available 09/17/2021 Do You Have Smoke And Carbon Monoxide Detectors In Your Home? Yes Information not available 09/17/2021 Are You Passively Exposed To Smoke? Yes Information not available 09/17/2021 Do You Or Have You Ever Used Smokeless Tobacco? Never Used Smokeless Tobacco Information not available 09/11/2019 How Much Tobacco Do You Smoke? 0.5 PPD Information not available 09/11/2019 General Stress Level Low Information not available 10/28/2020 Do You Feel Stressed (tense, Restless, Nervous, Or Anxious, Or Unable To Sleep At Night)? [id number] Information not available 09/17/2021 Do You Use Any Illicit Or Recreational Drugs? No Information not available 09/17/2021 Do You Use Sunscreen Routinely? No Information not available 10/19/2022 Has Tobacco Cessation Counseling Been Provided? Yes Information not available 03/13/2019 On What Date Was Tobacco Cessation Counseling Provided? 08/22/2024 Information not available 08/22/2024 How Many Years Have You Smoked Tobacco? 25 [email or web address] Information not available 10/22/2014 What Type Of Noise Exposure Are You Exposed To? Industrial Information not available 10/19/2022 Do You Or Have You Ever Used Any Other Forms Of Tobacco Or Nicotine? No Information not available 09/17/2021 Sex: Unknown Functional Status Question Answer Note LastModified by Organization D etails LastModified Time Are you able to care for yourself? Yes Information n ot available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
[2025-01-19] MEDS: IBUPROFEN 400 MG TABLET 800 MG PO (00:43)
[2025-01-19] MEDS: NEOMYCIN/POLYMYXIN/HYDROCORT OT SUSP 10 ML BTL (*BKC) 3 DROP LEFT EAR (00:45)
--- NOTE | 2025-01-19 00:48 | PC.NURSE ---
PATIENT CURRENTLY LAYING ON HIS RIGHT SIDE ALLOWING MEDICATION TO STAY IN HIS LEFT EAR.
[2025-01-19 01:02] VITALS: BP 139/103; PULSE 78; RESP 18; O2SAT 98
== END 2025-01-19 01:04 | disposition home or self-care (01) ==
PROVIDERS: Emergency Provider Emergency Medicine; PCP Physician Assistant
DX: H60.312 Diffuse otitis externa, left ear (principal); I10 Essential (primary) hypertension; F17.210 Nicotine dependence, cigarettes, uncomplicated; Z85.72 Personal history of non-Hodgkin lymphomas
CPT/HCPCS: 99283; A9270

== ENCOUNTER 2025-04-08 21:50 | Emergency (ER) | payer BC, SELFPAY ==
--- NOTE | ~2025-04-08 | CT_ITS ---
EXAMINATION: CT abdomen pelvis wo con DATE: 04/08/2025 22:33 INDICATION: rlq pain/CONTRAST ALLERGY TECHNIQUE: Computed tomography (CT) of the abdomen and pelvis was performed without intravenous contr ast. Automated exposure control and iterative reconstruction technique were employed. The dose-length product was 1356.15 mGy-cm. COMPARISON: 03/11/2024. FINDINGS: Lower thorax: Bibasilar scar/atelectasis. Liver: Normal. Biliary/Gallbladder: Cholelithiasis. No inflammatory changes. No bile duct dilation. Pancreas: No mass or duct dilation. Spleen: Normal. Adrenals:No mass. Kidneys: No suspicious mass, obstructing stone, or hydronephrosis. Punctate nonobstructing right midp ole calcification. GI tract: No small or large bowel dilation. Normal appendix. Sigmoid diverticulosis. Short segment wa ll thickening in the mid sigmoid, in the mid lower abdomen, with an inflamed associated diverticulum, moderate surrounding inflammatory change and prominent adjacent lymph nodes. No definite evidence of abscess or perforation. Mesentery/Peritoneum: No ascites, mass, or free air. Retroperitoneum: No mass. Pelvis: Pelvic organs are within normal limits. Soft Tissues: Small uncomplicated fat-containing umbilical and bilateral inguinal hernias. Bones: No acute osseous finding. IMPRESSION: Acute uncomplicated sigmoid 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. Reviewed, dictated and finalized at location K.
[2025-04-08 21:51] VITALS: BP 166/106; PULSE 116; RESP 20; TEMP 37.1; O2SAT 96
--- OUTSIDE RECORDS SUMMARY | 2025-04-08 21:52 | XMS_ITS | Encounter Summary ---
Author Organization [facility] Address [address] [place] [address] Phone Care Team Providers Care Clinical Biochemist Name Role Phone Bret Parrish Primary Care Provider [phone] Encounter Details Date Type Department Care Team (Late st Contact Info) Description 12/06/2017 Orders Only [facility] Provider, MD Nadja [address] [place] [address] Social History Tobacco Use Types Packs/Day Years Used Date Smoking Tobacco: Every Day Cigarettes Smokeless Tobacco: Never Alcohol Use Standard Drinks/Week Comments No 0 (1 standard drink = 0.6 oz pur e alcohol) Sex and Gender Information Value Date Recorded Sex Assigned at Not on file Legal Sex Male 7:06 PM DIGITAL ASSOCIATE Gender Identity Not on file Sexual Orientation Not on file documented as of this encounter Plan of Treatment Not on file documented as of this encounter Procedures Procedure Name Priority Date/Time Associated Diagnosis Comments DISCHARGE LABORATORY CUMULATIVE REPORT 12/06/2017 12:00 AM DIGITAL ASSOCIATE documented in this encounter Results * DISCHARGE LABORATORY CUMULATIVE REPORT (12/06/2017 12:00 AM DIGITAL ASSOCIATE) Narrative 12/06/2017 12:00 AM DIGITAL ASSOCIATE Ordered by an unspecified provider. Historical Provider LAB BLOOD ORDERABLES Tory l Result documented in this encounter Visit Diagnoses Not on filedocumented in this encounter Additional Health Concerns Infection Onset Date Last Indicated Resolved Time COVID19 Comment:Added from the Screening question BPA, identifying patients that tested positive for COVID in the last 14 days and the result is from a facility outside [facility] . 08/31/2021 08/31/2021 09/14/2021 3:05 AM CDT documented as of this encounter Care Teams Clinical Biochemist Relationship Specialty Start Date End Date Bret Parrish PA [address] [place] [address] PCP - General 03/26/16 documented as of this encounter
--- OUTSIDE RECORDS SUMMARY | 2025-04-08 21:52 | XMS_ITS | Encounter Summary ---
Author Organization [facility] Address [facility] [place] [address] Care Team Providers Care Clinical Documentation Manager Name Role Phone Bret Parrish Primary Care Provider [phone] Encounter Details Date Type Department Care Team (Late st Contact Info) Description 05/05/2019 Abstract [facility] CONVERSION [address] [place] [address] , Generic Conversion, Social History Tobacco Use [...] on filedocumented in this encounter Care Teams Clinical Documentation Manager Relationship Specialty Start Date End Date Bret Parrish PA PCP - General PHYSICIAN LABOR RELATIONS CONSULTANT 03/30/21 documented as of this encounter
--- OUTSIDE RECORDS SUMMARY | 2025-04-08 21:52 | XMS_ITS | Clinical Summary ---
Author Organization [facility] Address [address] [place] [address] Care Team Providers Care Member Of Congress Name Role Phone Bret Parrish Primary Care Provider [phone] Allergies Active Allergy Reactions Criticality Noted Date [...] Date Last Done Comments Annual Physical 1983 Hepatitis C 1998 DTaP, Tdap and Td Vaccines ( 1 - Tdap) 1999 Hepatitis B Vaccines (1 of 3 - 19+ 3-dose series) 1999 Pneumococcal Vaccine: Pediat rics (0 to 5 Years) and At-Risk Patients (6 to 49 Years) (1 of 2 - PCV) 1999 COVID-19 Vaccine (2023-2 5 season) 2024 HPV Vaccines Aged Out No longer [...] topic Insurance GENERIC - COMMERCIAL Care Teams Member Of Congress Relationship Specialty Start Date End Date Bret Parrish PA PCP - General PHYSICIAN THRESHER BROOMCORN 03/30/21
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
--- OUTSIDE RECORDS SUMMARY | 2025-04-08 21:53 | XMS_ITS | Clinical Summary ---
Author Organization [facility] Address [address] [place] [address] Care Team Providers Care Copier And Printer Field Technician Name Role Phone Bret Parrish Primary Care Provider [phone] Allergies Active Allergy Reactions Criticality Noted Date [...] 10/08/2021 Assessment & Plan (10/08/2021 10:17 AM TELEGRAPHIC INSTRUMENT SUPERVISOR): He has abnormal imaging, however his symptoms [...] (10/11/2019): Added automatically from request for surgery [id number] Assessment & Plan (10/18/2019 4:43 PM TELEGRAPHIC INSTRUMENT SUPERVISOR): Possible melena. Will schedule EGD for further evaluation. Continue omeprazole. Abdominal pain 10/11/2019 Overview (10/11/2019): Added automatically from request for surgery [id number] Assessment & Plan (10/18/2019 4:44 PM TELEGRAPHIC INSTRUMENT SUPERVISOR): Etiology is not clear. Recent CT scan [...] 10/12/2017 Assessment & Plan (10/12/2017 1:57 PM TELEGRAPHIC INSTRUMENT SUPERVISOR): Seroma. No signs of infection. Educated patient [...] on file Legal Sex Male 7:06 PM TELEGRAPHIC INSTRUMENT SUPERVISOR Gender Identity Not on file Sexual Orientation [...] patient's age to complete this topic Insurance [facility] CHOICE PLUS [employer] [place] [employer] [place] [facility] Care Teams Copier And Printer Field Technician Relationship Specialty Start Date End Date Bret Parrish PA [address] [place] [address] PCP - General 03/26/16
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
--- OUTSIDE RECORDS SUMMARY | 2025-04-08 21:53 | XMS_ITS | Clinical Summary ---
Author Organization [facility] Address [address] [place] [address] Phone Care Team Providers Care Special Distribution Clerk Name Role Phone Bret Parrish Primary Care Provider [phone] Allergies No known active allergies Medications diclofenac [...] Comments Blood Pressure 130/88 01/05/2018 2:14 PM MANAGER RETENTION Pulse 84 01/05/2018 2:14 PM MANAGER RETENTION Temperature 36.9 C (98.5 F) 01/05/2018 2:14 PM MANAGER RETENTION Respiratory Rate 18 01/05/2018 2:14 PM MANAGER RETENTION Oxygen Saturation 92% 01/05/2018 2:14 PM MANAGER RETENTION Inhaled Oxygen Concentration - - Weight 117.9 kg (260 lb) 01/05/2018 2:14 PM MANAGER RETENTION Height 176.5 cm (5' 9.5 ) 01/05/2018 2:14 PM MANAGER RETENTION Body Mass Index 37.84 01/05/2018 2:14 PM MANAGER RETENTION Plan of Treatment Health Maintenance Due Date [...] age to complete this topic Care Teams Special Distribution Clerk Relationship Specialty Start Date End Date Bret Parrish PAC [address] [place] [address] PCP - General Physician Legal Records Manager 02/19/16
--- OUTSIDE RECORDS SUMMARY | 2025-04-08 21:53 | XMS_ITS | Data Portability ---
[facility] Address [address] [place] [address] Care Team Providers Care Automatic Head Sawyer Name Role Phone HILLARY PARRISH Primary Care Provider Assessment No assessment recorded. Plan of Treatment Reminders Order Date Submit Date Provider Last Modified By Organization Details Last Modified Time Details Appointments None recorded. Lab CBC 2023 024 [facility], [address] [place] [address], [facility], [place], [address], 4 09:15:16 CMP, serum or plasma 2023 024 [facility], [address] [place] [address], [facility], [place], [address], 4 09:15:14 lipid panel, serum 2023 024 MUNDO [facility], [address] [facility], [facility], [place], [address], 4 09:15:14 HbA1c (hemoglobi n A1c), blood 2023 024 MUNDO In-Office Order, Internal Use Only DO Not Attach Compendium DO Not Attach Compendium, Do Not Delete/merge, [id number] 4 11:32:49 Referral gastroente rologist referral 2023 024 husam Suazo Dnp [employer], [address] [place] [address], [address], 4 09:06:15 Procedures None recorded. Surgeries None recorded. Imaging MRI, lumbar spine, w/o contrast - PA [facility] [address] [place] [address], [place], [address], 4 09:45:23 Medication Orders tramadol 50 mg tablet 2024 025 [facility], [address] [place], [address], 5 17:38:35 Zoryve 0.3 % topical cream 2024 025 [facility], [address] , [place], [address], 17:49:19 tramadol 50 mg tablet 2023 024 [facility], [address] [place], [address], 4 15:43:36 tramadol 50 mg tablet 2023 024 [facility], [address] [place], [address], 18:58:49 Patient TargetsNo targets recorded. Patient Instructions Encounter Date Encounter Id Patient Instructions Last Modified By Organization Details Last Modified Time 01/12/2024 [id number] A healthy lifestyle: care instructions jnanney Not available 01/12/2024 11:15:09 learning about high blood pressure jnanney Not available 01/12/2024 11:15:09 04/24/2024 [id number] A healthy lifestyle: care instructions jnanney Not available 04/24/2024 18:56:38 learning about high blood pressure jnanney Not available 04/24/2024 18:56:38 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: care instructions jnanney Not available 04/24/2024 18:56:38 learning about diverticulosis and 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 jnanney Not available 04/24/2024 18:56:38 08/02/2024 [id number] A healthy lifestyle: care instructions jnanney Not available 08/02/2024 15:40:30 02/26/2025 [id number] psoriasis: care instructions jnanney Not available 02/26/2025 17:49:17 learning about high blood pressure jnanney Not available 02/26/2025 17:38:27 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 Referring Physician: Hillary Parrish, Family Medicine, Encounter Date: 01/12/2024 Results Created Date Observation Date Name Description Value Unit Range Abnormal Flag Note LastModifiedBy Organization Detail LastModifiedTime 01/12/20 24 01/13/2024 LIPID PANEL cholesterol, total 186 mg/dL 100-19 9 Not Available [address], [address], 01/13/2024 09:15:14 01/12/20 24 01/13/2024 LIPID PANEL triglyceride s 256 mg/dL 0-149 above high normal Not Available [address], [address], 01/13/2024 09:15:14 01/12/20 24 01/13/2024 LIPID PANEL HDL cholesterol 36 mg/dL >39 below low normal Not Available [address], [address], 01/13/2024 09:15:14 01/12/20 24 01/13/2024 LIPID PANEL VLDL cholesterol kori 44 mg/dL 5-40 above high normal Not Available [address], [address], 01/13/2024 09:15:14 01/12/20 24 01/13/2024 LIPID PANEL LDL chol calc ([facility]) 106 mg/dL 0-99 above high normal Not Available [address], [address], 01/13/2024 09:15:14 01/12/20 24 01/13/2024 COMP. METAB OLIC PANEL (14) glucose 103 mg/dL 70-99 above high normal Not Available [address], [address], 01/13/2024 09:15:14 01/12/20 24 01/13/2024 COMP. METAB OLIC PANEL (14) BUN 11 mg/dL 6-24 Not Available [address], [address], 01/13/2024 09:15:14 01/12/20 24 01/13/2024 COMP. METAB OLIC PANEL (14) creatinine 0.96 mg/dL 0.76-1 .27 Not Available [address], [address], 01/13/2024 09:15:14 01/12/20 24 01/13/2024 COMP. METAB OLIC PANEL (14) eGFR 101 mL/mi n/1.7 3 >59 Not Available [address], [address], 01/13/2024 09:15:14 01/12/20 24 01/13/2024 COMP. METAB OLIC PANEL (14) BUN/creatini ne ratio 11 9-20 Not Available [address], [address], 01/13/2024 09:15:14 01/12/20 24 01/13/2024 COMP. METAB OLIC PANEL (14) sodium 139 mmol/ L 134-14 4 Not Available [address], [address], 01/13/2024 09:15:14 01/12/20 24 01/13/2024 COMP. METAB OLIC PANEL (14) potassium 4.6 mmol/ L 3.5-5. 2 Not Available [address], [address], 01/13/2024 09:15:14 01/12/20 24 01/13/2024 COMP. METAB OLIC PANEL (14) chloride 103 mmol/ L 96-106 Not Available [address], [address], 01/13/2024 09:15:14 01/12/20 24 01/13/2024 COMP. METAB OLIC PANEL (14) carbon dioxide, total 22 mmol/ L 20-29 Not Available [address], [address], 01/13/2024 09:15:14 01/12/20 24 01/13/2024 COMP. METAB OLIC PANEL (14) calcium 9.8 mg/dL 8.7-10 .2 Not Available [address], [address], 01/13/2024 09:15:14 01/12/20 24 01/13/2024 COMP. METAB OLIC PANEL (14) protein, total 6.8 g/dL 6.0-8. 5 Not Available [address], [address], 01/13/2024 09:15:14 01/12/20 24 01/13/2024 COMP. METAB OLIC PANEL (14) albumin 4.3 g/dL 4.1-5. 1 Not Available [address], [address], 01/13/2024 09:15:14 01/12/20 24 01/13/2024 COMP. METAB OLIC PANEL (14) globulin, total 2.5 g/dL 1.5-4. 5 Not Available [address], [address], 01/13/2024 09:15:14 01/12/20 24 01/13/2024 COMP. METAB OLIC PANEL (14) A/G ratio 1.7 1.2-2. 2 Not Available [address], [address], 01/13/2024 09:15:14 01/12/20 24 01/13/2024 COMP. METAB OLIC PANEL (14) bilirubin, total <0.2 mg/dL 0.0-1. 2 Not Available [address], [address], 01/13/2024 09:15:14 01/12/20 24 01/13/2024 COMP. METAB OLIC PANEL (14) alkaline phosphatase 82 IU/L 44-121 Not Available [address], [address], 01/13/2024 09:15:14 01/12/20 24 01/13/2024 COMP. METAB OLIC PANEL (14) AST (SGOT) 15 IU/L 0-40 Not Available [address], [address], 01/13/2024 09:15:14 01/12/20 24 01/13/2024 COMP. METAB OLIC PANEL (14) ALT (SGPT) 15 IU/L 0-44 Not Available [address], [address], 01/13/2024 09:15:14 01/12/20 24 01/13/2024 CARDI OVASC ULAR REPOR T interpretati on Note Suppl ement al repor t is avail able. Not Available [address], [address], 01/13/2024 09:15:15 01/12/20 24 01/13/2024 CARDI OVASC ULAR REPOR T pdf . Not Available [address], [address], 01/13/2024 09:15:15 01/12/20 24 01/13/2024 CBC, PLATE LET, NO DIFFE RENTI AL WBC 6.4 x10e3 /uL 3.4-10 .8 Not Available [address], [address], 01/13/2024 09:15:15 01/12/20 24 01/13/2024 CBC, PLATE LET, NO DIFFE RENTI AL RBC 5.71 x10e6 /uL 4.14-5 .80 Not Available [address], [address], 01/13/2024 09:15:15 01/12/2001/13/2024 CBC, PLATE LET, NO DIFFE RENTI AL hemoglobin 15.6 g/dL 13.0-1 7.7 Not Available [address], [address], 01/13/2024 09:15:15 01/12/2001/13/2024 CBC, PLATE LET, NO DIFFE RENTI AL hematocrit 47.8 % 37.5-5 1.0 Not Available [address], [address], 01/13/2024 09:15:15 01/12/2001/13/2024 CBC, PLATE LET, NO DIFFE RENTI AL MCV 84 fL 79-97 Not Available [address], [address], 01/13/2024 09:15:15 01/12/2001/13/2024 CBC, PLATE LET, NO DIFFE RENTI AL MCH 27.3 pg 26.6-3 3.0 Not Available [address], [address], 01/13/2024 09:15:15 01/12/20 24 01/13/2024 CBC, PLATE LET, NO DIFFE RENTI AL MCHC 32.6 g/dL 31.5-3 5.7 Not Available [address], [address], 01/13/2024 09:15:15 01/12/20 24 01/13/2024 CBC, PLATE LET, NO DIFFE RENTI AL RDW 13.3 % 11.6-1 5.4 Not Available [address], [address], 01/13/2024 09:15:15 01/12/20 24 01/13/2024 CBC, PLATE LET, NO DIFFE RENTI AL platelets 381 x10e3 /uL 150-45 0 Not Available [address], [address], 01/13/2024 09:15:15 01/12/20 24 01/12/2024 HbA1c (hemo globi n A1c), blood HbA1c 6.3 Not Available In-Office Order Internal Use Only DO Not Attach Compendium DO Not Attach Compendium, Do Not Delete/merge, [id number] 01/12/2024 11:15:25 03/11/20 24 03/11/2024 CT, abdom en + pelvi s, w/o contr ast No observ [facility]ion [facility] [address] [place], [address], 03/12/2024 10:40:12 09/11/20 24 09/11/2024 CT, lumba r spine , w/o contr ast No observ ation [facility] ed[facility] [address] [place], [address], 09/11/2024 10:21:43 Result Notes None recorded. Problems Name Problem SNOMED Code Status Onset Date Resolution Date Notes Provider Name and Address Organization Details Recorded Time Low back pain 281771609 Active Brenda Madison [place] null, [place] - [facility] 15:04:12 Lymphadenopat hy 70051730 Active 2016 Not Available [facility] 11:59:24 Hodgkin lymphoma, nodular lymphocyte predominance (clinical) 283129941 Active 2016 Not Available [facility] 11:59:24 Obstructive sleep apnea syndrome 42604958 Active 2017 Brenda [place], [place] [facility] 15:04:13 Gastroesophag eal reflux disease without esophagitis 312086302 Active 2017 Brenda [place] [facility] 15:04:13 Rosacea 008838412 Active Brenda [place] [facility] 15:04:12 Drag-to gait 12863047 Active MADELIN [place], [place] [facility] 15:04:13 Essential hypertension 04020409 Active Brenda [place] [facility] 15:04:12 Lumbar radiculopathy 970352067 Active Brenda [place] [facility] 15:04:13 Pruritic disorder 202976742 Active Brenda [place] [facility] 15:04:13 Diverticuliti s 688135462 Active Brenda [place] [facility] 15:04:13 Knee pain Active Brenda [place] [facility] 15:04:13 Fatigue 41824904 Active Brenda [place] [facility] 15:04:13 Hypertriglyce ridemia 718050959 Active Brenda [place] [facility] 15:04:13 Hypogonadism 89929592 Active Brenda [place] [facility] 15:04:13 Pain of multiple joints 50146526 Active Brenda [place] [facility] 15:04:13 Anxiety 36325537 Active Brenda MADELIN [place], [place] - [facility] 15:04:13 Tachycardia 4869385 Active Brenda MADELIN [place], [place] - [facility] 15:04:13 Problem Notes None recorded. Procedures Surgical History None recorded. Imaging Results Imaging Date Name Status LastModified by Organiz ation Details LastModified Time 03/11/2024 CT, abdomen + pelvis, w/o contrast completed [facility] [address] [place], [address], 03/12/2024 10:40:12 09/11/2024 CT, lumbar spine, w/o contrast completed [facility] [address] [place], [address], 09/11/2024 10:21:43 Procedure Notes None recorded. Medical Equipment None Reported. Allergies Allergen ID Allergen Name Allergen Category Reaction Reaction Severity Criticality Documentation Date Start Date Code Code System Note Provider Name and Address Organization Details Recorded Time 503488 Iodinated contrast media (substanc e) medicatio n Not available Not available Not available 04/11/2018 26720 2004 SNOMED Bernice Womack MA [place], [place] - [facility] 8 15:25:39 Medications Name Sig Start Date Stop Date [...] Available Not Available atenolol 100 mg tablet Take 1 tablet by mouth once daily 2024 active Not Available Not Available Not Avai lable hydrocodone 5 mg-acetamin ophen 325 mg tablet TAKE 1 TABLET BY MOUTH EVERY 8 HOURS NEEDED FOR PAIN 02/26 completed Not Available Not Available Not Available [...] propionate 50 mcg/actuati on nasal spray,suspe nsion [place] 2 sprays every day by intranasa l route. 02/26 completed Not Available Not Available Not Available atenolol 50 mg tablet TAKE 1 TABLET BY MOUTH ONCE DAILY 09/10 completed Not Available Not Available Not Available naproxen 500 mg tablet TAKE 1 TABLET BY MOUTH TWICE DAILY active Not Available Not Available No t Available valsartan 160 mg tablet Take 1 tablet by mouth once daily 2024 active Not Available Not Available Not Avai lable neomycin-po lymyxin-hyd rocort 3.5 mg-10,000 unit/mL-1 % ear drops,susp ADMINISTE R 3 DROPS INTO THE LEFT EAR THREE TIMES DAILY FOR 7 DAYS. DISCARD REMAINDER 02/26 completed Not Available Not Available Not Available erythromyci n with ethanol 2 % [...] completed Not Available Not Available Not Available Zoryve 0.3 % topical cream active Not Available Not Available Not Available Vitals Date Recorded Body height Body mass index (BMI) Body weight Oxygen saturation Oxygen saturation in Arterial blood by Pulse oximetry Heart rate Systolic blood pressure Diastolic blood pressure Provider Name and Address Organization Details Last Updated DateTime 4 180.34 cm 36.7 kg/m2 324361. 79 g 97 % 97 % 68 /min 118 mm[Hg] 80 mm[Hg] Brenda Madison [place] [facility] 4 10:59:03 Date Recorded Body height Body mass index (BMI) Body weight Oxygen saturation Oxygen saturation in Arterial blood by Pulse oximetry Heart rate Systolic blood pressure Diastolic blood pressure Provider Name and Address Organization Details Last Updated DateTime 4 180.34 cm 38.1 kg/m2 649179. 72 g 96 % 96 % 80 /min 140 mm[Hg] 100 mm[Hg] Ananya Dimas MA [facility] 4 18:45:45 Date Recorded Body height Body mass index (BMI) Body weight Oxygen saturation Oxygen saturation in Arterial blood by Pulse oximetry Heart rate Systolic blood pressure Diastolic blood pressure Provider Name and Address Organization Details Last Updated DateTime 4 180.34 cm 38.3 kg/m2 619174. 11 g 98 % 98 % 65 /min 121 mm[Hg] 82 mm[Hg] Ananya Dimas MA [facility] 4 15:23:55 Date Recorded Body height Body mass index (BMI) Body weight Oxygen saturation Oxygen saturation in Arterial blood by Pulse oximetry Heart rate Systolic blood pressure Diastolic blood pressure Provider Name and Address Organization Details Last Updated DateTime 4 175.9 cm 39.4 kg/m2 809785. 35 g 96 % 96 % 102 /min 140 mm[Hg] 92 mm[Hg] Ananya Dimas MA [facility] 4 14:37:19 Date Recorded Body height Body mass index (BMI) Body weight Oxygen saturation Oxygen saturation in Arterial blood by Pulse oximetry Heart rate Systolic blood pressure Diastolic blood pressure Provider Name and Address Organization Details Last Updated DateTime 5 175.9 cm 39.9 kg/m2 918043. 12 g 96 % 96 % 87 /min 142 mm[Hg] 90 mm[Hg] Angelita Bucio MA [facility] 5 17:06:30 Social History Question Answer Notes LastModified by Organizat ion Details LastModified Time Tobacco Smoking Status Current Every Day Smoker less than 1/2 pack Lula Khan MA [facility], [facility] 10/19/2022 11:55:26 Are You Blind Or Do You Have Difficulty Seeing? Yes Reading Glasses Information not available 10/05/2022 What Is Your Level Of Caffeine Consumption? Heavy Information not available 10/28/2020 How Much Tobacco Do You Chew? None Information not available 08/08/2020 In The 14 Days Before Symptom Onset, Have You Had Close Contact With A Laboratory-confir med COVID-19 While That Case Was Ill? No Information not available 09/17/2021 In The 14 Days Before Symptom Onset, Have You Had Close Contact With A Person Who Is Under Investigation For COVID-19 While That Person Was Ill? No Information not available 09/17/2021 Have You Been To An Area Known To Be High Risk For COVID-19? No Information not available 09/17/2021 Are You Deaf Or Do You Have Serious Difficulty Hearing? No Information not available 10/05/2022 What Type Of Diet Are You Following? REGULAR Information not available 05/26/2020 Which Illicit Or Recreational Drugs Have You Used? None Information not available 05/26/2020 Live Alone Or With Others? With Others Information not available 08/08/2020 What Was The Date Of Your Most Recent Tobacco Screening? 02/26/2025 Information not available 02/26/2025 Do You Have Any Pets? Yes Information not available 10/19/2022 What Is Your Relationship Status? Single Information not available 09/17/2021 Do You Have Smoke And Carbon Monoxide Detectors In Your Home? Yes Information not available 09/17/2021 Are You Passively Exposed To Smoke? Yes Information no t available 09/17/2021 How Much Tobacco Do You Smoke? 0.5 PPD Information not available 09/11/2019 General Stress Level Low Information not available 10/28/2020 Do You Use Sunscreen Routinely? No Information not available 10/19/2022 Has Tobacco Cessation Counseling Been Provided? Yes Information not available 03/13/2019 On What Date Was Tobacco Cessation Counseling Provided? 02/26/2025 Information not available 02/26/2025 How Many Years Have You Smoked Tobacco? 25 [email or web address] Information not available 10/22/2014 Sex: Unknown Functional Status Question Answer Note LastModified by Organizat ion Details LastModified Time Do you use any illicit or recreational drugs? No Information not available 09/17/2021 Do you or have you ever used any other forms of tobacco or nicotine? No Information not available 09/17/2021 What is your level of alcohol consumption? Occasional rare Information not available 10/05/2022 Do you or have you ever used smokeless tobacco? Never used smokeless tobacco Information not available 09/11/2019 Are you currently employed? Yes Information not available 05/26/2020 Are you able to care for yourself? Yes Information not available 08/08/2020 What is your occupation? [employer] Information not available 01/11/2023 Do you or have you ever used e-cigarettes or vape? Never used electronic cigarettes Information not available 09/11/2019 What is your exercise level? None [email or web address] Information not available 06/15/2022 What type of noise exposure are you exposed to? Industrial Information not available 10/19/2022 Mental Status Question Answer Note LastModified by Organization D etails LastModified Time Do you feel stressed (tense, restless, nervous, or anxious, or unable to sleep at night)? [id number] Information not available 09/17/2021 Family History Relationship Description Onset Age of [...] Response Coronary Artery Disease N Other N Atrial Fibrillation N High Blood Pressure Y Thyroid Problems N Kidney or Bladder Problems N Depression N COPD N Blood Clots N GI Problems N Skin Problems N Eating Disorder N Anemia N Heart Attack ([place]) N Diabetes N Anxiety Disorder Y Seizures/Epilepsy [...] Time Tdap 07/31/2024 completed Brenda Madison MA [facility] 08/22/2024 09:24:14 Past Encounters Encounter ID Performer Location Encounter Start Date Encounter Closed Date Diagnosis/Indication Diagnosis SNOMED-CT Code Diagnosis ICD10 Code Diagnosis Note [id number] MORGAN Marks [address] [place] [address] 10/22/2014 15:44:48 10/29/2014 10:18:53 Low back pain [id number] [id number] MORGAN Marks [address] [place] [address] 11/01/2014 16:03:34 11/05/2014 12:16:52 Essential hypertension 38993390 [id number] MORGAN Marks [address] [place] [address] 12/09/2014 15:19:25 12/17/2014 17:52:19 Essential hypertension 76302136 Anxiety 69606206 Tachycardia 6194398 [id number] MORGAN Marks [address] [place] [address] 01/03/2015 10:43:37 01/03/2015 11:27:58 Tachycardia 2415964 Low back pain 033022888 [id number] MORGAN Marks [address] [place] [address] 01/27/2015 10:38:22 01/31/2015 14:04:54 Low back pain 380547626 [id number] MORGAN Marks [address] [place] [address] 03/10/2015 11:36:37 03/10/2015 12:46:46 Tachycardia 1920678 Essential hypertension 35334064 Rosacea 764153390 Drag-to gait 58026038 [id number] Fayd Watts MD [facility] [address] [place] [address] 05/20/2015 18:34:35 05/22/2015 14:01:31 Drag-to gait 04330530 Tachycardia 6356067 Low back pain 747622440 Rosacea 654916911 Essential hypertension 62190202 Anxiety 06638817 [id number] Fady Watts MD [facility] [address] [place] [address] 06/30/2015 16:47:44 06/30/2015 17:35:15 Lumbar radiculopathy 230589822 [id number] Fady Watts MD [facility] [address] [place] [address] 07/30/2015 10:58:28 07/30/2015 11:32:43 Essential hypertension 67108776 Pruritic disorder 768973383 [id number] Fady Watts MD [facility] [address] [place] [address] 12/11/2015 16:33:11 12/11/2015 17:10:04 Essential hypertension 60120565 I10 Lumbar radiculopathy 128 189695 M54.16 [id number] Hillary Parrish PA-C [facility] [address] [place] [address] 02/03/2016 18:05:04 02/03/2016 19:20:46 Anxiety 95510619 F41.9 Diverticulitis 184723536 K57.92 Knee pain 05064490 M25.5 62 Fatigue 73963891 R53.83 [id number] Hillary Parrish PA-C [facility] [address] [place] [address] 02/13/2016 14:23:17 02/13/2016 15:29:17 Lumbar radiculopathy 992678217 M54.16 Hypertriglyceridemia 302 398740 E78.1 Hypogonadism 72882937 E2 9.1 [id number] MORGAN Marks [facility] [address] [place] [address] 02/20/2016 10:51:30 02/20/2016 11:39:50 Hypogonadism 64103886 E29.1 [id number] Hillary Parrish PA-C [facility] [address] [place] [address] 07/16/2016 16:42:56 07/19/2016 09:17:12 Anxiety 70462372 F41.9 Essential hypertension 41645683 I10 Fatigue 26181162 R53.83 Hypogonadism 55962828 E2 9.1 Pain of mu ltiple joints 46443716 M25.50 [id number] Hillary Parrish PA-C [facility] [address] [place] [address] 10/12/2016 17:40:02 10/12/2016 19:23:22 Lumbar radiculopathy 351935857 M54.16 [id number] Fady Watts MD [facility] [address] [place] [address] 12/23/2016 17:55:02 12/23/2016 19:16:01 Lumbar radiculopathy 546176817 M54.16 Pain of mu ltiple joints 31028961 M25.50 [id number] Hillary Parrish PA-C [facility] [address] [place] [address] 02/22/2017 17:48:37 02/22/2017 18:43:31 Gastro-esophageal reflux disease with esophagitis 418513528 K21.0 [id number] Fady Watts MD [facility] [address] [place] [address] 05/12/2017 14:56:41 05/12/2017 16:33:12 Inguinal lymphadenopathy 922987597 R59.0 Right lowe r quadrant pain 319593444 R10.31 [id number] Fady Watts MD [facility] [address] [place] [address] 07/12/2017 18:29:11 07/13/2017 09:32:27 Diverticular disease of colon 659085178 K57.30 Shoulder joint pain 2679 16346 M25.519 Male hypogonadism 056744 06 E29.1 Hypertriglyceridemia 302 126027 E78.1 Gastroesop hageal reflux disease without esophagitis 895014452 K21.9 Essential hypertension 93477883 I10 Increased frequency of urination 701616262 R35.0 Lumbar radiculopathy 128 990333 M54.16 [id number] Fady Watts MD [facility] [address] [place] [address] 07/26/2017 18:45:03 07/27/2017 10:18:05 Lumbar radiculopathy 868409084 M54.16 [id number] Hillary Parrish PA-C [facility] [address] [place] [address] 11/01/2017 17:49:40 11/01/2017 19:50:36 Essential hypertension 77317380 I10 History of Hodgkin lymphoma 953106477 Z85.71 Obstructiv e sleep apnea syndrome 86408785 G47.33 [id number] Hillary Parrish PA-C [facility] [address] [place] [address] 11/25/2017 15:34:56 11/25/2017 17:04:51 Pain of right elbow joint 7763575196 [id number] M25.123 [id number] Sharath Cerrato MD [facility] [address] [place] [address] 03/21/2018 10:21:01 03/21/2018 16:29:10 Pain of joint of elbow 925848461 M25.529 Lateral epicondylitis 20 2158925 M77.11 Rupture of tendon of biceps 797579184 M66.515 [id number] Fady Watts MD [facility] [address] [place] [address] 04/11/2018 15:12:18 04/11/2018 16:08:20 Right lower quadrant pain 286543650 R10.31 [id number] Sharath Cerrato MD [facility] [address] [place] [address] 04/18/2018 10:18:07 04/19/2018 15:10:23 Rupture of tendon of biceps 504808840 M66.646 [id number] Hillary Parrish PA-C [facility] [address] [place] [address] 03/13/2019 18:35:22 03/14/2019 12:53:16 Lumbar radiculopathy 868958936 M54.16 Chronic depression [address] 8 F34.1 [facility] 15909987 R 73.09 [id number] Hillary Parrish PA-C [facility] [address] [place] [address] 05/04/2019 16:10:00 05/04/2019 17:16:46 Pain in throat 940405939 R07.0 Chronic depression 84931 8 F34.1 [id number] Hillary Parrish PA-C [facility] [address] [place] [address] 08/17/2019 16:26:55 08/20/2019 11:46:30 Esophageal dysphagia 32363710 R13.19 Essential hypertension 93697733 I10 Cervical radiculopathy 61836161 M54.12 [id number] Hillary Parrish PA-C [facility] [address] [place] [address] 09/11/2019 18:50:08 09/11/2019 19:30:43 Diverticulitis 781071953 K57.92 Lumbar radiculopathy 128 266998 M54.16 Essential hypertension 05717363 I10 Hematochezia 626359895 K 92.1 [id number] Hillary Parrish PA-C [facility] [address] [place] [address] 10/30/2019 18:27:20 10/30/2019 19:28:25 Essential hypertension 16745100 I10 Hematochezia 055709800 K 92.1 [id number] MORGAN Marks [facility] [address] [place] [address] 05/26/2020 10:30:31 05/26/2020 17:35:22 Essential hypertension 13574563 I10 Lumbar radiculopathy 128 017088 M54.16 Mild persi stent asthma 851589428 J45.30 [id number] Hillary Parrish PA-C [facility] [address] [place] [address] 08/08/2020 09:38:58 08/08/2020 12:56:52 Essential hypertension 33388623 I10 [id number] Fady Watts MD [facility] [address] [place] [address] 09/02/2020 09:45:03 09/02/2020 19:32:09 [id number] Fady Watts MD [facility] [address] [place] [address] 09/10/2020 10:31:49 09/11/2020 13:34:46 Lumbosacral radiculopathy 2474169 M54.17 [id number] Fady Watts MD [facility] [address] [place] [address] 10/28/2020 17:11:13 10/28/2020 18:10:26 Squamous cell carcinoma of skin 724215255 C44.222 Essential hypertension 82687471 I10 Psychogeni c polydipsia 00100767 F63.89 [id number] Fady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
--- OUTSIDE RECORDS SUMMARY | 2025-04-08 21:53 | XMS_ITS | Data Portability ---
Author Organization [facility] ([facility] Address [address] [facility] [address] [place] [address] Care Team Providers Care Special Education Associate Name Role Phone YUE WOODWARD Referring Provider [...] Time 01/20/2018 Sleep Study completed Sharath Jin [address] [facility] [address], [place], [address], [facility] 01/30/2018 09:47:41 Imaging Results None recorded. Procedure Notes None recorded. Medical Equipment None Reported. Vitals None Recorded Social History None recorded. Functional Status None recorded. Mental Status None recorded. Family History Nothing Reported. Medical History No medical history recorded. Past Encounters Encounter ID Performer Location Encounter Start Date Encounter Closed Date Diagnosis/Indication Diagnosis SNOMED-CT Code Diagnosis ICD10 Code Diagnosis Note [id number] Sharath Jin [facility] [phone]) [phone] [facility] [address] [place] [address] 01/20/2018 16:17:43 01/26/2018 10:20:56 Obstructive sleep apnea of adult [id number] 103 G47.33 Health Concerns Section Related Observation LastModified by Organization Detai ls LastModified Time None Recorded Concern Status LastModified by Organization Details LastModified Time None Recorded Advance Directives Directive None Recorded Payers Insurance Date Sequence Insurance Name Policy Number Policy Keene Covered Member ID Keene Member ID Guarantor Name 01/27/[address] [place] [address] [id number] Praveen Duong [id number] Praveen Duong
--- NOTE | 2025-04-08 21:54 | ED_ITS ---
HPI - Abdominal Pain General Chief Complaint: Abdominal Pain Stated Complaint: side pain Time Seen by Provider: 04/08/25 21:54 Source: patient Mode of arrival: ambulatory Limitations: no limitations History of Present Illness HPI narrative: Patient is a 44-year-old male with right lower quadrant abdominal pain for the past day. Pain is sharp and specific to the right lower quadrant. Patient does have history of 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 and kidney stones. MD elicited complaint: abdominal pain Pertinent past history: 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 and kidney stones Onset (ago): day(s) ( One) Pain Consistency: constant Location: RLQ Severity: moderate Pain scale (0-10): 8 Quality: stabbing and sharp Radiation: none Migration to: no migration Exacerbating factors: nothing Relieving factors: nothing Context: confirms other ( patient has progressively worse right lower quadrant pain for the past day.) Associated symptoms: nausea Treatments prior to arrival: other ( None) Related Data Home Medications ?Medication ?Instructions ?Recorded ?Confirmed ?Last Taken ?Type atenolol 50 mg tablet 100 mg PO DAILY 03/22/20 10/27/24 08/05/21 History valsartan 160 mg tablet 160 mg PO DAILY 03/22/20 10/27/24 Unknown History tramadol 50 mg tablet 50 mg PO TID PRN Pain 05/29/20 10/27/24 Unknown History baclofen 10 mg tablet 10 mg PO TID 11/08/22 10/27/24 Unknown History Allergies Allergy/AdvReac Type Severity Reaction Status Date / Time iohexol (From contrast - CT, Allergy Itching Verified 01/19/25 00:58 X-RAY) Review of Systems 2 Review of Systems: All systems reviewed & are unremarkable except as noted in HPI and below Constitutional: Constitutional: Reports no additional constitutional complaints Eyes: Eyes: Reports no additional eye complaints ENT: Reports system reviewed and no additional complaints, except as documented Cardiovascular: Cardiovascular: Reports no additional cardiovascular complaints Respiratory: Respiratory: Reports no additional respiratory complaints Gastrointestinal: Gastrointestinal: Reports no additional gastrointestinal complaints Genitourinary: Genitourinary: Reports no additional male genitourinary complaints Musculoskeletal: Musculoskeletal: Reports no additional musculoskeletal complaints Integumentary/Breasts: Skin/Breast: Reports system reviewed and no additional complaints, except as docu Neurologic: Reports system reviewed and no additional complaints, except as documented Psychiatric: Psychiatric: Reports no additional psychiatric complaints Endocrine: Endocrine: Reports no additional endocrine complaints Hematologic/Lymphatic: Hematologic/Lymphatic: Reports no additional hematologic/lymphatic complaints Allergic/Immunologic: Allergic/Immunologic: Reports no additional allergic/immunologic complaints [facility] Past Medical History Medical History Eustachian tube dysfunction GERD (gastroesophageal reflux disease) Hodgkin's lymphoma Lumbar back pain Hypertension Diverticulitis Family History Family History Father FH: CABG (coronary artery bypass surgery) Social History Social History Smoking packs per day: 0.5 Smoking cigarettes per day: 10.0 Years smoked: 20 Smoking pack-years: 10.00 Smoking status: Current every day smoker Tobacco type: cigarettes Alcohol intake: never Substance use: never Lack of Transportation: No Lack of Food: Never True Current Housing: I Have Housing Concerned About Future Housing: No Difficulty Paying Gas/Electric Bills: No Difficulty Paying for Meds: No Currently Unemployed: No Education: Grade School Difficulty w/ Childcare or Family Care: No Spiritual care concerns: No Exam 2 Const: General: healthy appearing Nutritional Appearance: well nourished Orientation/consciousness: patient oriented x3 Limitations: no limitations HENMT: Head: normal to inspection Ears: external ears normal F kaleb/Nose/Sinus: Normal external nose present Eyes: Conjunctivae: conjunctivae normal Pupils: Equal, round and reactive pupils present EOM: EOMs intact bilaterally Neck: Neck: normal visual inspection Chest: Chest palpation & inspection: normal inspection of the chest Resp: Effort & Inspection: normal respiratory effort and not labored A uscultation: clear to auscultation bilaterally and no crackles Cardio: Rate: regular rate Rhythm: regular rhythm Heart sounds: no murmurs GI: Inspection: non-distended GI Palp: Yes Soft to palpation, Yes Tenderness to palpation present (GI) ( right lower quadrant), Yes Guarding due to palpation present (GI) ( right lower quadrant), No Rigid due to palpation, No Hernia present, No Palpable mass present and Yes Rebound tenderness present ( right lower quadrant; Rovsing positive; McBurney point equivocal) A uscultation: Hypoactive bowel sounds present : General: Yes bladder normal to palpation Back/Spine/Pelvis: Back: no CVA tenderness Skin: General skin exam: normal color Rashes: no rashes Wounds: no wounds Neuro: General: patient oriented x3 Cranial nerves: Yes Nystagmus not present Speech: normal speech Gait exam (Neuro): Normal gait present Extrem: General: normal to inspection Psych: Mental Status: mental status grossly normal Affect: normal affect Attitude: cooperative Course Vital Signs Vital signs: Vital Signs Temperature 37.1 C 04/08/25 21:51 Pulse Rate 116 H 04/08/25 21:51 Respiratory Rate 20 04/08/25 21:51 Blood Pressure 166/106 H 04/08/25 21:51 Pulse Oximetry 96 04/08/25 21:51 Oxygen Delivery Room Air 04/08/25 21:51 Temperature 37.1 C 04/08/25 21:51 Pulse Rate 116 H 04/08/25 21:51 Respiratory Rate 20 04/08/25 21:51 Blood Pressure 166/106 H 04/08/25 21:51 Pulse Oximetry 96 04/08/25 21:51 Oxygen Delivery Room Air 04/08/25 21:51 MDM - Abdominal Pain MDM Narrative Medical decision making narrative: patient is a 44-year-old male with right lower quadrant abdominal pain for the past day. Will do an abdominal pain workup at this time. Will do CT without contrast due to his allergy at this time. Lab Data Attestation: I reviewed the patient's lab results. 04/08/25 22:44 04/08/25 22:44 Labs: Lab Results 04/08/25 Range/Units 22:44 WBC 11.6 H (4.8-10.8) K/mm3 RBC 5.63 (4.70-6.10) M/mm3 Hgb 14.9 (14.0-18.0) g/dL Hct 46.5 (40.0-54.0) % MCV 82.6 (78.0-102.0) fL MCH 26.5 L (27.0-31.0) pg MCHC 32.0 (32-36) g/dL RDW 12.7 (11.6-14.4) % Plt Count 309 (150-420) K/mm3 MPV 10.3 (8.7-11.0) fl Immature Gran % (Auto) 0.5 H (0.0-0.0) % Neut % (Auto) 72.9 H (50.0-70.0) % Lymph % (Auto) 15.3 L (18.0-42.0) % Berrien % (Auto) 9.2 (2.0-11.0) % Eos % (Auto) 1.6 (1.0-6.0) % Baso % (Auto) 0.5 (0.0-1.0) % Lymph # (Auto) 1.77 (1.10-4.50) K/mm3 Berrien # (Auto) 1.07 H (0.10-0.90) K/mm3 Eos # (Auto) 0.18 (0.02-0.50) K/mm3 Baso # (Auto) 0.06 (0.00-0.10) K/mm3 Abs Immat Gran (auto) 0.06 H (0.00-0.00) K/mm3 Absolute Neuts (auto) 8.43 H (1.70-7.20) K/mm3 Absolute Nucleated RBC 0.00 (0.00-0.00) K/mm3 Nucleated RBC % 0.0 (0-0.0) % PT 10.3 (9.50-12.1) Seconds INR 0.9 APTT 30.1 (23.9-30.70) Sec Sodium 137 (137-145) mmol/L Potassium 3.9 (3.4-5.0) mmol/L Chloride 106 (98-107) mmol/L Carbon Dioxide 26 (22-30) mmol/L Anion Gap 5 (4-12) mmol/L BUN 13 (9-20) mg/dL Creatinine 0.93 (0.7-1.3) mg/dL Estim Creat Clear Calc 117 ml/min Estimated GFR > 60 (59 - ) Glucose 130 H (65-110) mg/dL Calculated Osmolality 286 (285-295) mOsm/kg Lactic Acid 1.5 (0.4-2.0) mmol/L Calcium 9.8 (8.4-10.2) mg/dL Total Bilirubin 0.4 (0.2-1.3) mg/dL AST 20 (17-59) U/L ALT 15 (6-50) U/L Alkaline Phosphatase 83 (38-126) U/L Total Protein 7.0 (6.3-8.2) g/dL Albumin 4.2 (3.5-5.1) g/dL Lipase 48 (23-300) U/L Urine Color Light yellow (Yellow) Urine Appearance Clear (Clear) Urine pH 7.0 (5.0-8.0) Ur Specific Ewing 1.015 (1.010-1.020) Urine Protein Negative (Negative) Urine Glucose (UA) Negative (Negative) Urine Ketones Negative (Negative) Ur Blood (Man) Negative (Negative) Urine Nitrate Negative (Negative) Urine Bilirubin Negative (Negative) Urine Urobilinogen 1.0 (0.2-1.0) mg/dL Leukocyte Esterase Rfl Negative (Negative) MICHAEL/UL Imaging Data Attestation: I personally reviewed and interpreted this imaging study as follows: Radiologist's impression: ITS Impressions Abdomen/Pelvis CT 04/08/25 22:48 IMPRESSION: Acute uncomplicated sigmoid 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. Discharge Plan Discharge Clinical Impression: Diverticulitis of sigmoid colon Patient Disposition: Home Condition: Stable Instructions: Antibiotic Form, Diverticulitis (ED) Patient Language: Peruvian Prescriptions: New ciprofloxacin HCl [Cipro] 500 mg tablet 500 mg PO BID 7 Days Qty: 14 0RF metronidazole 500 mg tablet 500 mg PO TID 7 Days Qty: 21 0RF No Action atenolol 50 mg tablet 100 mg PO DAILY valsartan 160 mg tablet 160 mg PO DAILY tramadol 50 mg tablet 50 mg PO TID PRN (Reason: Pain) baclofen 10 mg tablet 10 mg PO TID cocpoeeq-htewtxgfb-MB 3.5-10,000-1 mg/mL-unit/mL-% drops,suspension 3 drp LEFT EAR TID 7 Days Qty: 10 0RF amoxicillin-pot clavulanate [Augmentin] 500-125 mg tablet 1 tablet PO BID 10 Days Qty: 20 0RF hydrocodone-acetaminophen 5-325 mg tablet 1 tablet PO Q8H PRN (Reason: pain) Qty: 10 0RF Follow-up/Referrals: Francois,LIBBY Almeida [Primary Care Provider] - Stand Alone Forms: Work/School Release IP Time of Disposition: 23:06
[2025-04-08 23:05] LABS: Basophils Absolute Auto 0.06 K/mm3 (0.00-0.10); Basophils Percent Auto 0.5 % (0.0-1.0); Eosinophils Absolute Auto 0.18 K/mm3 (0.02-0.50); Eosinophils Percent Auto 1.6 % (1.0-6.0); Hematocrit 46.5 % (40.0-54.0); Hemoglobin 14.9 g/dL (14.0-18.0); Immature Granulocyte Absolute 0.06 K/mm3 (0.00-0.00); Immature Granulocyte Percent A 0.5 % (0.0-0.0); Lymphocytes Absolute Auto 1.77 K/mm3 (1.10-4.50); Lymphocytes Percent Auto 15.3 % (18.0-42.0); Mean Corpuscular Hemoglobin 26.5 pg (27.0-31.0); Mean Corpuscular Volume 82.6 fL (78.0-102.0); Mean Platelet Volume 10.3 fl (8.7-11.0); Monocytes Absolute Auto 1.07 K/mm3 (0.10-0.90); Monocytes Percent Auto 9.2 % (2.0-11.0); Neutrophils Absolute Auto 8.43 K/mm3 (1.70-7.20); Neutrophils Percent Auto 72.9 % (50.0-70.0); Platelet Count Result 309 K/mm3 (150-420); Red Blood Count 5.63 M/mm3 (4.70-6.10); Red Cell Distribution Width 12.7 % (11.6-14.4); White Blood Count 11.6 K/mm3 (4.8-10.8)
[2025-04-08 23:12] LABS: Add Urine Microscopic? NO; Appearance Urine Clear (Clear); Bilirubin Urine Negative (Negative); Blood Urine Negative (Negative); Color Urine Light Yellow (Yellow); Glucose Urine UA Negative (Negative); Ketones Urine Negative (Negative); Leukocyte Esterase Ur Negative LEU/UL (Negative); Nitrate Urine Negative (Negative); Protein Urine Negative (Negative); Specific Grav Ur 1.015 (1.010-1.020)
[2025-04-08] MEDS: CIPROFLOXACIN 500 MG TAB PO (23:15)
[2025-04-08] MEDS: metroNIDAZOLE 250 MG TABLET 500 MG PO (23:15)
[2025-04-08] MEDS: ONDANSETRON HCL ODT 4 MG TABLET PO (23:18)
[2025-04-08 23:20] LABS: INR 0.9; Partial Thromboplastin Time 30.1 Sec (23.9-30.70); Prothrombin Time 10.3 Seconds (9.50-12.1)
[2025-04-08 23:21] LABS: Alanine Aminotransferase 15 U/L (6-50); Albumin Level 4.2 g/dL (3.5-5.1); Alkaline Phosphatase 83 U/L (38-126); Anion Gap 5 mmol/L (4-12); Aspartate Amino Transferase 20 U/L (17-59); Bilirubin,Total 0.4 mg/dL (0.2-1.3); Blood Urea Nitrogen 13 mg/dL (9-20); Calcium 9.8 mg/dL (8.4-10.2); Carbon Dioxide 26 mmol/L (22-30); Chloride 106 mmol/L (98-107); Estimated CRCL calculation 117 ml/min; Estimated Glomerular Filt Rate > 60; Glucose 130 mg/dL (65-110); Lipase 48 U/L (23-300); Osmolality Calculated 286 mOsm/kg (285-295); Potassium 3.9 mmol/L (3.4-5.0); Sodium 137 mmol/L (137-145)
[2025-04-08 23:28] LABS: Lactic Acid Reflex 1.5 mmol/L (0.4-2.0)
[2025-04-08 23:38] VITALS: BP 140/101; PULSE 78; RESP 18; TEMP 36.6; O2SAT 97
== END 2025-04-08 23:38 | disposition home or self-care (01) ==
PROVIDERS: Emergency Provider Emergency Medicine; PCP Physician Assistant
DX: K57.32 Diverticulitis of large intestine without perforation or abscess without bleeding (principal); I10 Essential (primary) hypertension; F17.210 Nicotine dependence, cigarettes, uncomplicated; Z85.72 Personal history of non-Hodgkin lymphomas
CPT/HCPCS: 36415; 74176; 80053; 81003; 83605; 83690; 85025; 85610; 85730; 87040; 96374; 99284; A9270